=== PATIENT | male | born 1945 | race Caucasian/White ===

== ENCOUNTER → 2018-02-20 07:07 | Outpatient (CLI) | payer OTHER, SELFPAY ==
--- NOTE | 2018-02-20 | DI.MRI.S_ITS ---
PROCEDURE: MR LUMBAR SPINE WO CON INDICATIONS: LUMBOSACRAL REGION RADICULOPATHY TECHNIQUE: Noncontrast sagittal T1 spin echo and T2 fast echo, sagittal STIR, axial T1 and T2 fast spin echo through the lumbar spine. In cases with scoliosis, additional coronal T2 fast spin echo may be performed. COMPARISON: [facility], MR, L-SPINE WITHOUT CONTRAST, 03/29/2016, 8:01. [facility], CT, ABDOMEN/PELVIS WITH CONTRAST, 04/07/2014, 11:18. [facility], RG, US ABDOMEN, 09/28/2003, 7:42. FINDINGS: Image quality: Excellent. Alignment and Curvature: 5 lumbar type vertebral bodies are present by CT topogram. There is mild grade 1 retrolisthesis of L4 on L5 and L5 on S1. Bone Marrow: Marrow is of normal overall signal. No acute vertebral body compression fractures. There is mild reactive signal within the endplates adjacent to the the L3-L4, L4-L5, and L5-S1 intervertebral discs. Spinal Cord: Conus medullaris terminates at the L1-L2 disc space level. Visualized cord demonstrates normal signal and size. Paraspinous Soft Tissues: No paravertebral masses. Mild incompletely visualized aneurysmal dilatation of the infrarenal abdominal aorta, measuring roughly 31 mm. L1-L2: Bilateral facet hypertrophy. No significant canal, nor foraminal stenosis. No change. L2-L3: Disc desiccation and diffuse disc bulge. Bilateral facet hypertrophy. Mild canal stenosis. Mild foraminal stenosis. No change. L3-L4: Disc desiccation. Bilateral facet and ligamentum flavum hypertrophy. Epidural lipomatosis. Mild canal stenosis. Mild foraminal stenosis bilaterally. No change. L4-L5: Disc desiccation and diffuse disc bulge. Bilateral facet hypertrophy. Mild canal stenosis. Mild foraminal stenosis bilaterally. No change. L5-S1: Disc desiccation and diffuse disc bulge with superimposed small broad-based left for lateral protrusion. Bilateral facet hypertrophy. Mild canal stenosis. Mild right foraminal stenosis. Moderate left foraminal stenosis. No change. IMPRESSION: 1. Multilevel degenerative disc and facet disease. 2. No change in mild multilevel canal stenoses. 3. No change in multilevel foraminal stenoses, worst on the left at L5-S1. 4. Mild aneurysmal dilatation of the infrarenal abdominal aorta; annual sonographic surveillance is recommended. Dictated by: Raman Arteaga M.D. on 02/20/2018 at 9:24 Approved by: Raman Arteaga M.D. on 02/20/2018 at 9:30
== END ==
PROVIDERS: Family Provider Family Medicine; PCP Family Medicine; Visit Provider Orthopaedic Surgery
DX: M51.37 Other intervertebral disc degeneration, lumbosacral region (principal); M47.816 Spondylosis without myelopathy or radiculopathy, lumbar region; I71.4 Abdominal aortic aneurysm, without rupture
CPT/HCPCS: 72148

== ENCOUNTER → 2018-04-11 10:04 | Outpatient (CLI) | payer OTHER, SELFPAY ==
[2018-04-11 11:36] LABS: Blood Urea Nitrogen 18 mg/dL (9-20); Calcium 9.1 mg/dL (8.4-10.2); Carbon Dioxide 28 mmol/L (22-32); Chloride 102 mmol/L (98-107); Estimated Glomerular Filt Rate 59.5 mL/min (>60); Glucose 148 mg/dL (80-110); HEMOLYSIS < 15 (0-50); Potassium 4.3 mmol/L (3.4-5.1); Sodium 140 mmol/L (137-145)
== END ==
PROVIDERS: Family Provider Family Medicine; PCP Family Medicine; Visit Provider Internal Medicine Cardiovascular Disease
DX: I25.10 Atherosclerotic heart disease of native coronary artery without angina pectoris (principal)
CPT/HCPCS: 36415; 80048

== ENCOUNTER 2018-05-29 08:15 | Outpatient (RCR) | payer OTHER, SELFPAY ==
--- NOTE | 2018-04-02 16:57 | PT.OIE ---
Current Diagnoses Strain of muscle, fascia and tendon of right hip, initial encounter (04/02/18) Past Surgical History Status post hernia repair Provider Visit Care Team Role Provider Type Mar Jane DO Family Provider Physician Primary Care Provider Specialty: Family Practice Address: [address] [place] [address], [id number] Email: [email or web address] Dickson Ward MD Attending Provider Physician Specialty: Orthopedic Surgery Address: [address] [place] [address], [id number] Email: [email or web address] Physical Therapy Initial Evaluation PT-OP-A Visit Information Start: 04/02/18 10:34 Freq: Status: Active Protocol: Document 04/02/18 10:34 SAK (Rec: 04/02/18 16:57 SAK [id number]) Out-Patient Physical Therapy Visit Information Visit Information Visit Type Initial Evaluation Visit Start Time 10:34 Visit Stop Time 11:19 Total Visit Minutes 45 Visit Number 1 Number of CUSTOMER SECURITY CLERK Visits 0 Evaluation Information Evaluation Date 04/02/18 PT-OP-B Current Condition Start: 04/02/18 10:34 Freq: Status: Active Protocol: Document 04/02/18 10:34 SAK (Rec: 04/02/18 11:19 SAK [id number]) Current Condition History of Current Condition Onset Date 15-20 years Current Complaints function-limiting right buttock pain History of Current Condition Reports no pain sitting but has pain with walking especially uphill. Can't go further than 1/4 mile. Occasional tingling right LE. Progressively getting worse. Scheduled for land-based PT. Walks every day, limps, would like to be able to walk up to 2 miles. Painful on treadmill, though reports a little easier. Not doing HEP consistently. Works out at gym especially in the winter. Prior Treatments and Tests PT chiropracter, PT, pain specialist with injection into lumbar spine and gluteal muscles, accupunture; nothing helpful. C56 fusion 1983. MRI of hip negative. Now has some tingling into right LE. At times feels right leg is going to give way, increased pain with lifting. Treatment Goals Patient/Caregiver Goals Walk 2 miles without pain. Prior Functional Status Baseline Function- ADL's Independent Baseline Function- Mobility Independent Baseline Function- Gait Independent, hiking greater than 2 miles no pain Current Functional Impairments (Reported) Functional Limitations- Mobility/Gait as above PT-OP-C Subjective Start: 04/02/18 10:34 Freq: Status: Active Protocol: Document 04/02/18 10:34 SAK (Rec: 04/02/18 16:57 [facility] [id number]) Patient Questionnaires Lower Extremity Functional Scale LEFS Impairment 20 to 39% Impaired (Score 48- 62) OP-PT Pain Assessment Pain Assessment Grid Paper Pain Assessment Grid Completed Yes Location Left Buttock Intensity 6 Scale Used Numeric (1 - 10) Description Aching Burning Spasm Tender Tightness Frequency Frequent Pain Behaviors Pain Behaviors Guarding Wincing PT-OP-F Manual Assessment Start: 04/02/18 16:29 Freq: Status: Active Protocol: Document 04/02/18 10:34 SAK (Rec: 04/02/18 16:57 [facility] [id number]) Manual Assessments Soft Tissue Assessment Soft Tissue Mobility Assessment Moderate tightness right piriformis Other Manual Assessments Other Manual Assessments with forward trunk flexion right PSIS moves further than left PT-OP-J Posture/Palpation/Skin Start: 04/02/18 16:29 Freq: Status: Active Protocol: Document 04/02/18 10:34 SAK (Rec: 04/02/18 16:57 [facility] [id number]) Posture Evaluation Position Standing Head/C-Spine Posture Forward Head T-Spine Posture Increased Kyphosis L-Spine Posture Flattened Pelvis Posture (R) Rotated Posterior Hip Posture (R) Externally Rotated PT-OP-K Range of Motion Start: 04/02/18 16:29 Freq: Status: Active Protocol: Document 04/02/18 10:34 SAK (Rec: 04/02/18 16:57 [facility] [id number]) Hip Goniometric Range of Motion Hip ROM Limitations Hip ROM Limitations Soft Tissue Tightness Comments PSLR right 50, left 55. IR 30 hever. ER right 40, left 50 Ankle and Foot Goniometric Range of Motion Ankle and Foot ROM Limitations ROM Limitations Soft Tissue Tightness PT-OP-L Special Tests Start: 04/02/18 16:29 Freq: Status: Active Protocol: Document 04/02/18 10:34 SAK (Rec: 04/02/18 16:57 [facility] [id number]) Special Tests Hip Special Tests Piriformis Test Results positive right PT-OP-M Strength Start: 04/02/18 16:29 Freq: Status: Active Protocol: Document 04/02/18 10:34 [facility] (Rec: 04/02/18 16:57 [facility] [id number]) Hip Strength Hip Manual Muscle Testing Right Flexion (L2) 4+ Good+ Extension (S1) 4 Good Abduction 4+ Good+ External Rotation 4- Good- Internal Rotation 4+ Good+ Left Flexion (L2) 4- Good- Extension (S1) 4 Good Abduction 4+ Good+ External Rotation 4- Good- Internal Rotation 4+ Good+ Knee Strength Knee Manual Muscle Testing Right Flexion (S2) 4+ Good+ Extension (L3) 5 Normal Left Flexion (S2) 4+ Good+ Extension (L3) 5 Normal Ankle/Foot Strength Ankle and Foot Manual Muscle Testing Right Dorsiflexion (L4) 5 Normal Left Dorsiflexion (L4) 5 Normal PT-OP-Q Treatments Start: 04/02/18 16:29 Freq: Status: Active Protocol: Document 04/02/18 10:34 [facility] (Rec: 04/02/18 16:57 [facility] [id number]) Self-Care/Home Management Treatment Education Patient Education Home Exercise Program Other Education Hamstring stretching, piriformis stretching, resume prior HEP and bring to next session, self-assessment for habitual postures and movements. PT-OP-T Assessment and Plan Start: 04/02/18 16:29 Freq: Status: Active Protocol: Document 04/02/18 10:34 [facility] (Rec: 04/02/18 16:57 [facility] [id number]) Physical Therapy Assessment Rehab Potential Rehabilitation Potential Good Evaluation Complexity Number of Personal Factors/Comorbidities 1-2 Number of Body Systems Impaired 4 or More Clinical Presentation at Evaluation Evolving Impairments Impairments Activity Tolerance Functional Activities Functional Mobility Gait Pain Posture ROM Strength Goals Four Impairment ROM Short Term Goal (STG) Patient to be independent and compliant with HEP for purposes of LE flexibility STG Duration 6 wks Insulation Inspector Goal (LTG) Patient to demonstrate improvements in piriformis and hamstring length to WNL for improved functional mobility and activity tolerance LTG Duration 3 months Three Impairment Functional mobility Short Term Goal (STG) Improve LE functional questionaire to 70% STG Duration 6 wks Assisted Goal (LTG) Improve LE functional questionaire to at least 80% LTG Duration 3 months Two Impairment strength Short Term Goal (STG) Patient to be independent and compliant with HEP for purposes of LE strengthening and core stabilization STG Duration 6 wks Assisted Goal (LTG) Patient to demonstrate 5/5 strength throughout LE's LTG Duration 3 months One Impairment Functional mobility; unable to walk greaer than 1/4 mile without pain Short Term Goal (STG) Patient able to walk 1 mile on level surfaces without an increase in pain or need for rest. STG Duration 6 wks Insulation Inspector Goal (LTG) Patient able to walk greater than 2 miles including elevation with minimal to no increase in pain LTG Duration 3 months Assessment Summary Assessment Patient presents with function -limiting pain in right buttocks which appears due to soft tissue tightness, decreased ROM, and decreased strength. Needs further/ ongoing assessment regarding any contributory positioning or movements which are contributory. Will further evaluate gait on level surfaces and especially elevation with use of treadmill next session. Feel he will benefit from PT to address all goal areas. Physical Therapy Plan Frequency and Duration Frequency of Treatment 2x/Week Duration of Treatment 3 months Plan of Care Start Date 04/02/18 Plan of Care End Date 06/28/18 Therapeutic Interventions Therapeutic Interventions Aquatic Therapy Gait Training Home Exercise Program Manual Therapy Neuromuscular Re-education Patient/Caregiver Education Self-Care/Home Management Therapeutic Activities Therapeutic Exercises Modalities Cold Pack/Ice Massage Electric Stimulation Hot Packs Ultrasound Next Visit Focus/Plan Next Note Type Treatment Note Next Visit Plan Review HEP, progress as indicated, ther ex including hip strengthening, flexibility , and core stabilization, assess gait on treadmill with elevation, assess hip joint mobility
--- NOTE | 2018-04-02 16:57 | PT.OPPOC ---
Current Diagnoses Strain of muscle, fascia and tendon of right hip, initial encounter (04/02/18) Provider Visit Care Team Role Provider Type Mar Jane DO Family Provider Physician Primary Care Provider Specialty: Family Practice Address: [address] [place] [address], [address] Email: [email or web address] Dickson Ward MD Attending Provider Physician Specialty: Orthopedic Surgery Address: [address] [place] [address], [address] Email: [email or web address] Plan Of Care PT-OP-T Assessment and Plan Start: 04/02/18 16:29 Freq: Status: Active Protocol: Document 04/02/18 10:34 SAK (Rec: 04/02/18 16:57 SAK [id number]) Physical Therapy Assessment Rehab Potential Rehabilitation Potential Good Evaluation Complexity Number of Personal Factors/Comorbidities 1-2 Number of Body Systems Impaired 4 or More Clinical Presentation at Evaluation Evolving Impairments Impairments Activity Tolerance Functional Activities Functional Mobility Gait Pain Posture ROM Strength Goals Four Impairment ROM Short Term Goal (STG) Patient to be independent and compliant with HEP for purposes of LE flexibility STG Duration 6 wks Group Home Goal (LTG) Patient to demonstrate improvements in piriformis and hamstring length to WNL for improved functional mobility and activity tolerance LTG Duration 3 months Three Impairment Functional mobility Short Term Goal (STG) Improve LE functional questionaire to 70% STG Duration 6 wks Group Home Goal (LTG) Improve LE functional questionaire to at least 80% LTG Duration 3 months Two Impairment strength Short Term Goal (STG) Patient to be independent and compliant with HEP for purposes of LE strengthening and core stabilization STG Duration 6 wks Staff Physical Therapy Assistant Goal (LTG) Patient to demonstrate 5/5 strength throughout LE's LTG Duration 3 months One Impairment Functional mobility; unable to walk greaer than 1/4 mile without pain Short Term Goal (STG) Patient able to walk 1 mile on level surfaces without an increase in pain or need for rest. STG Duration 6 wks Group Home Goal (LTG) Patient able to walk greater than 2 miles including elevation with minimal to no increase in pain LTG Duration 3 months Assessment Summary Assessment Patient presents with function -limiting pain in right buttocks which appears due to soft tissue tightness, decreased ROM, and decreased strength. Needs further/ ongoing assessment regarding any contributory positioning or movements which are contributory. Will further evaluate gait on level surfaces and especially elevation with use of treadmill next session. Feel he will benefit from PT to address all goal areas. Physical Therapy Plan Frequency and Duration Frequency of Treatment 2x/Week Duration of Treatment 3 months Plan of Care Start Date 04/02/18 Plan of Care End Date 06/28/18 Therapeutic Interventions Therapeutic Interventions Aquatic Therapy Gait Training Home Exercise Program Manual Therapy Neuromuscular Re-education Patient/Caregiver Education Self-Care/Home Management Therapeutic Activities Therapeutic Exercises Modalities Cold Pack/Ice Massage Electric Stimulation Hot Packs Ultrasound Next Visit Focus/Plan Next Note Type Treatment Note Next Visit Plan Review HEP, progress as indicated, ther ex including hip strengthening, flexibility , and core stabilization, assess gait on treadmill with elevation, assess hip joint mobility Plan of Care Dates Plan of Care Start Date 04/02/18 Plan of Care End Date 06/28/18 Please Sign and Return: I have reviewed this Plan of Care and certify that the skilled therapy services above are required to meet the patient?s needs. Physician Signature Date Printed Name and Credentials Clinical Instructor Signature Printed Name and Credentials
--- NOTE | 2018-04-04 16:44 | PT.OTN ---
Current Diagnoses Strain of muscle, fascia and tendon of right hip, initial encounter (04/04/18) Physical Therapy Treatment Note PT-OP-A Visit Information Start: 04/02/18 10:34 Freq: Status: Active Protocol: Document 04/04/18 10:30 SAK (Rec: 04/04/18 15:14 SAK [id number]) Out-Patient Physical Therapy Visit Information Visit Information Visit Type Treatment Note Visit Start Time 10:30 Visit Stop Time 11:15 Total Visit Minutes 45 Visit Number 2 Number of ASSOCIATE PROFESSOR OF SURGERY Visits 0 Evaluation Information Evaluation Date 04/02/18 PT-OP-B Current Condition Start: 04/02/18 10:34 Freq: Status: Active Protocol: Document 04/04/18 10:30 SAK (Rec: 04/04/18 15:14 SAK [id number]) Current Condition History of Current Condition Onset Date 15-20 years Current Complaints function-limiting right buttock pain History of Current Condition Reports no pain sitting but has pain with walking especially uphill. Can't go further than 1/4 mile. Occasional tingling right LE. Progressively getting worse. Scheduled for land-based PT. Walks every day, limps, would like to be able to walk up to 2 miles. Painful on treadmill, though reports a little easier. Not doing HEP consistently. Works out at gym especially in the winter. Prior Treatments and Tests PT chiropracter, PT, pain specialist with injection into lumbar spine and gluteal muscles, accupunture; nothing helpful. C56 fusion 1983. MRI of hip negative. Now has some tingling into right LE. At times feels right leg is going to give way, increased pain with lifting. Treatment Goals Patient/Caregiver Goals Walk 2 miles without pain. PT-OP-C Subjective Start: 04/02/18 10:34 Freq: Status: Active Protocol: Document 04/04/18 10:30 SAK (Rec: 04/04/18 16:43 SAK [id number]) OP-PT Subjective Patient Comments Patient Comments Apologizes for wearing flip flops today for PT. Was sore after evaluation PT-OP-F Manual Assessment Start: 04/02/18 16:29 Freq: Status: Active Protocol: Document 04/02/18 10:34 SAK (Rec: 04/02/18 16:57 SAK [id number]) Manual Assessments Soft Tissue Assessment Soft Tissue Mobility Assessment Moderate tightness right piriformis Other Manual Assessments Other Manual Assessments with forward trunk flexion right PSIS moves further than left PT-OP-J Posture/Palpation/Skin Start: 04/02/18 16:29 Freq: Status: Active Protocol: Document 04/02/18 10:34 SAK (Rec: 04/02/18 16:57 SAK [id number]) Posture Evaluation Position Standing Head/C-Spine Posture Forward Head T-Spine Posture Increased Kyphosis L-Spine Posture Flattened Pelvis Posture (R) Rotated Posterior Hip Posture (R) Externally Rotated PT-OP-K Range of Motion Start: 04/02/18 16:29 Freq: Status: Active Protocol: Document 04/02/18 10:34 SAK (Rec: 04/02/18 16:57 SAK [id number]) Hip Goniometric Range of Motion Hip ROM Limitations Hip ROM Limitations Soft Tissue Tightness Comments PSLR right 50, left 55. IR 30 hever. ER right 40, left 50 Ankle and Foot Goniometric Range of Motion Ankle and Foot ROM Limitations ROM Limitations Soft Tissue Tightness PT-OP-L Special Tests Start: 04/02/18 16:29 Freq: Status: Active Protocol: Document 04/02/18 10:34 SAK (Rec: 04/02/18 16:57 SAK [id number]) Special Tests Hip Special Tests Piriformis Test Results positive right PT-OP-M Strength Start: 04/02/18 16:29 Freq: Status: Active Protocol: Document 04/02/18 10:34 SAK (Rec: 04/02/18 16:57 SAK [id number]) Hip Strength Hip Manual Muscle Testing Right Flexion (L2) 4+ Good+ Extension (S1) 4 Good Abduction 4+ Good+ External Rotation 4- Good- Internal Rotation 4+ Good+ Left Flexion (L2) 4- Good- Extension (S1) 4 Good Abduction 4+ Good+ External Rotation 4- Good- Internal Rotation 4+ Good+ Knee Strength Knee Manual Muscle Testing Right Flexion (S2) 4+ Good+ Extension (L3) 5 Normal Left Flexion (S2) 4+ Good+ Extension (L3) 5 Normal Ankle/Foot Strength Ankle and Foot Manual Muscle Testing Right Dorsiflexion (L4) 5 Normal Left Dorsiflexion (L4) 5 Normal PT-OP-Q Treatments Start: 04/02/18 16:29 Freq: Status: Active Protocol: Document 04/04/18 10:30 [facility] (Rec: 04/04/18 15:14 SAK [id number]) Cardio Equipment Recumbent Stepper (Sci-Fit) Duration (Minutes) 8 Resistance 1.5 Other emphasis on neutral alignment LE's Gym Equipment Shuttle Balance 1 Details Balance side/side, fwd/bck Reps/Duration 5 min Comments emphasis on postural alignment and core activation Therapeutic Exercises Supine Exercises 5 Supine Exercise Name LTR Reps/Minutes 0 Comments start next session 4 Supine Exercise Name SKTC, DKTC Reps/Minutes 2x 3 Supine Exercise Name bridge; bridge with LE flex Reps/Minutes 10x 2 Supine Exercise Name TA with opp UE/LE lift Reps/Minutes 10x 1 Supine Exercise Name TA with march Reps/Minutes 10x Standing Exercises 3 Standing Exercise Name sidestepping, fwd/bck walk with L1 TB Comments emphasis on core stab 2 Standing Exercise Name HC stretch Equipment Used RANDELL 1 Standing Exercise Name hamstring stretch Reps/Minutes 2x Comments emphasis on hip hinge Other Exercises 3 Other Exercise Name aimee pose 2 Other Exercise Name alt UE/LE lift with core stab Reps/Minutes 10x 1 Other Exercise Name cat/cow Reps/Minutes 10x Self-Care/Home Management Treatment Education Patient Education Home Exercise Program Other Education Reviewed and made corrections with patient's HEP especially related to core stabilization PT-OP-T Assessment and Plan Start: 04/02/18 16:29 Freq: Status: Active Protocol: Document 04/04/18 10:30 [facility] (Rec: 04/04/18 15:14 [facility] [id number]) Physical Therapy Assessment Goals Four Impairment ROM Short Term Goal (STG) Patient to be independent and compliant with HEP for purposes of LE flexibility STG Duration 6 wks Prison Goal (LTG) Patient to demonstrate improvements in piriformis and hamstring length to WNL for improved functional mobility and activity tolerance LTG Duration 3 months Three Impairment Functional mobility Short Term Goal (STG) Improve LE functional questionaire to 70% STG Duration 6 wks Prison Goal (LTG) Improve LE functional questionaire to at least 80% LTG Duration 3 months Two Impairment strength Short Term Goal (STG) Patient to be independent and compliant with HEP for purposes of LE strengthening and core stabilization STG Duration 6 wks Prison Goal (LTG) Patient to demonstrate 5/5 strength throughout LE's LTG Duration 3 months One Impairment Functional mobility; unable to walk greaer than 1/4 mile without pain Short Term Goal (STG) Patient able to walk 1 mile on level surfaces without an increase in pain or need for rest. STG Duration 6 wks Registered Representative Goal (LTG) Patient able to walk greater than 2 miles including elevation with minimal to no increase in pain LTG Duration 3 months Assessment Summary Assessment Patient demonstrated good understanding of exercises after review, instruction, cues, and corrections. Has difficulty with balance/ stabilization standing on shuttle balance. Unable to assess gait on treadmill due to patient wearing flip flops today. Physical Therapy Plan Frequency and Duration Frequency of Treatment 2x/Week Duration of Treatment 3 months Plan of Care Start Date 04/02/18 Plan of Care End Date 06/28/18 Therapeutic Interventions Therapeutic Interventions Aquatic Therapy Gait Training Home Exercise Program Manual Therapy Neuromuscular Re-education Patient/Caregiver Education Self-Care/Home Management Therapeutic Activities Therapeutic Exercises Modalities Cold Pack/Ice Massage Electric Stimulation Hot Packs Ultrasound Next Visit Focus/Plan Next Note Type Treatment Note Next Visit Plan assess gait on treadmill, initiate soft tissue treatment and modalities as indicated. Assess hip mobility.
--- NOTE | 2018-04-16 12:02 | PT.OTN ---
Current Diagnoses Strain of muscle, fascia and tendon of right hip, initial encounter (04/16/18) Physical Therapy Treatment Note PT-OP-A Visit Information Start: 04/02/18 10:34 Freq: Status: Active Protocol: Document 04/16/18 09:43 SAK (Rec: 04/16/18 10:34 SAK [id number]) Out-Patient Physical Therapy Visit Information Visit Information Visit Type Treatment Note Visit Start Time 09:43 Visit Stop Time 10:32 Total Visit Minutes 50 Visit Number 3 Number of MILIEU COORDINATOR Visits 0 PT-OP-B Current Condition Start: 04/02/18 10:34 Freq: Status: Active Protocol: Document 04/04/18 10:30 SAK (Rec: 04/04/18 15:14 SAK [id number]) Current Condition History of Current Condition Onset Date 15-20 years Current Complaints function-limiting right buttock pain History of Current Condition Reports no pain sitting but has pain with walking especially uphill. Can't go further than 1/4 mile. Occasional tingling right LE. Progressively getting worse. Scheduled for land-based PT. Walks every day, limps, would like to be able to walk up to 2 miles. Painful on treadmill, though reports a little easier. Not doing HEP consistently. Works out at gym especially in the winter. Prior Treatments and Tests PT chiropracter, PT, pain specialist with injection into lumbar spine and gluteal muscles, accupunture; nothing helpful. C56 fusion 1983. MRI of hip negative. Now has some tingling into right LE. At times feels right leg is going to give way, increased pain with lifting. Treatment Goals Patient/Caregiver Goals Walk 2 miles without pain. PT-OP-C Subjective Start: 04/02/18 10:34 Freq: Status: Active Protocol: Document 04/16/18 09:43 SAK (Rec: 04/16/18 10:34 SAK [id number]) OP-PT Subjective Patient Comments Patient Comments No change in his pain so far. More compliant to HEP. CT of hip done at [facility] last week per muck farmer, no results yet. Patient Reported Progress Same PT-OP-F Manual Assessment Start: 04/02/18 16:29 Freq: Status: Active Protocol: Document 04/02/18 10:34 SAK (Rec: 04/02/18 16:57 SAK [id number]) Manual Assessments Soft Tissue Assessment Soft Tissue Mobility Assessment Moderate tightness right piriformis Other Manual Assessments Other Manual Assessments with forward trunk flexion right PSIS moves further than left PT-OP-J Posture/Palpation/Skin Start: 04/02/18 16:29 Freq: Status: Active Protocol: Document 04/02/18 10:34 SAK (Rec: 04/02/18 16:57 [facility] [id number]) Posture Evaluation Position Standing Head/C-Spine Posture Forward Head T-Spine Posture Increased Kyphosis L-Spine Posture Flattened Pelvis Posture (R) Rotated Posterior Hip Posture (R) Externally Rotated PT-OP-K Range of Motion Start: 04/02/18 16:29 Freq: Status: Active Protocol: Document 04/02/18 10:34 DANO (Rec: 04/02/18 16:57 [facility] [id number]) Hip Goniometric Range of Motion Hip ROM Limitations Hip ROM Limitations Soft Tissue Tightness Comments PSLR right 50, left 55. IR 30 hever. ER right 40, left 50 Ankle and Foot Goniometric Range of Motion Ankle and Foot ROM Limitations ROM Limitations Soft Tissue Tightness PT-OP-L Special Tests Start: 04/02/18 16:29 Freq: Status: Active Protocol: Document 04/02/18 10:34 DANO (Rec: 04/02/18 16:57 [facility] [id number]) Special Tests Hip Special Tests Piriformis Test Results positive right PT-OP-M Strength Start: 04/02/18 16:29 Freq: Status: Active Protocol: Document 04/02/18 10:34 DANO (Rec: 04/02/18 16:57 [facility] [id number]) Hip Strength Hip Manual Muscle Testing Right Flexion (L2) 4+ Good+ Extension (S1) 4 Good Abduction 4+ Good+ External Rotation 4- Good- Internal Rotation 4+ Good+ Left Flexion (L2) 4- Good- Extension (S1) 4 Good Abduction 4+ Good+ External Rotation 4- Good- Internal Rotation 4+ Good+ Knee Strength Knee Manual Muscle Testing Right Flexion (S2) 4+ Good+ Extension (L3) 5 Normal Left Flexion (S2) 4+ Good+ Extension (L3) 5 Normal Ankle/Foot Strength Ankle and Foot Manual Muscle Testing Right Dorsiflexion (L4) 5 Normal Left Dorsiflexion (L4) 5 Normal PT-OP-Q Treatments Start: 04/02/18 16:29 Freq: Status: Active Protocol: Document 04/16/18 09:43 [facility] (Rec: 04/16/18 12:02 SAK [id number]) Cardio Equipment Treadmill Duration (Minutes) 10 Speed 2.5, 0.6, 0.8 Incline 0-8 Other forward, back, side Therapeutic Exercises Supine Exercises 3 Supine Exercise Name bridge; bridge with LE flex Reps/Minutes 10x Sidelying Exercises 1 Sidelying Exercise Name clam, reverse clam, hip ab all at wall Reps/Minutes 10+ Comments cues for core engagement Standing Exercises 4 Standing Exercise Name BOSU lunge Reps/Minutes 10x Gait Training Gait Activity 1 Description gait with emphasis on gluteal and core activation Surface level and stairs Self-Care/Home Management Treatment Education Patient Education Home Exercise Program Other Education updated written HEP PT-OP-T Assessment and Plan Start: 04/02/18 16:29 Freq: Status: Active Protocol: Document 04/16/18 09:43 [facility] (Rec: 04/16/18 12:02 [facility] [id number]) Physical Therapy Assessment Progress Towards Goals Progress Comments No change in pain, compliant to HEP. Assessment Summary Assessment Appeared to understand importance of core activation with all exercises and gluteal activation with stance phase of gait. Physical Therapy Plan Frequency and Duration Frequency of Treatment 2x/Week Duration of Treatment 3 months Plan of Care Start Date 04/02/18 Plan of Care End Date 06/28/18 Therapeutic Interventions Therapeutic Interventions Aquatic Therapy Gait Training Home Exercise Program Manual Therapy Neuromuscular Re-education Patient/Caregiver Education Self-Care/Home Management Therapeutic Activities Therapeutic Exercises Modalities Cold Pack/Ice Massage Electric Stimulation Hot Packs Ultrasound Next Visit Focus/Plan Next Note Type Treatment Note Next Visit Plan Initiate soft tissue treatment and hip mobility.
--- NOTE | 2018-04-23 11:42 | PT.OTN ---
Current Diagnoses Strain of muscle, fascia and tendon of right hip, initial encounter (04/23/18) Physical Therapy Treatment Note PT-OP-A Visit Information Start: 04/02/18 10:34 Freq: Status: Active Protocol: Document 04/18/18 09:46 SAK (Rec: 04/18/18 17:01 SAK [id number]) Out-Patient Physical Therapy Visit Information Visit Information Visit Type Treatment Note Visit Start Time 09:46 Visit Stop Time 10:46 Total Visit Minutes 60 Visit Number 4 Number of PIPE COVERER AND INSULATOR Visits 0 Evaluation Information Evaluation Date 04/02/18 PT-OP-B Current Condition Start: 04/02/18 10:34 Freq: Status: Active Protocol: Document 04/04/18 10:30 SAK (Rec: 04/04/18 15:14 SAK [id number]) Current Condition History of Current Condition Onset Date 15-20 years Current Complaints function-limiting right buttock pain History of Current Condition Reports no pain sitting but has pain with walking especially uphill. Can't go further than 1/4 mile. Occasional tingling right LE. Progressively getting worse. Scheduled for land-based PT. Walks every day, limps, would like to be able to walk up to 2 miles. Painful on treadmill, though reports a little easier. Not doing HEP consistently. Works out at gym especially in the winter. Prior Treatments and Tests PT chiropracter, PT, pain specialist with injection into lumbar spine and gluteal muscles, accupunture; nothing helpful. C56 fusion 1983. MRI of hip negative. Now has some tingling into right LE. At times feels right leg is going to give way, increased pain with lifting. Treatment Goals Patient/Caregiver Goals Walk 2 miles without pain. PT-OP-C Subjective Start: 04/02/18 10:34 Freq: Status: Active Protocol: Document 04/23/18 09:48 SAK (Rec: 04/23/18 10:30 SAK [id number]) OP-PT Subjective Patient Comments Patient Comments I think its a little better. Compliant to HEP. Patient Reported Progress Improving Patient Questionnaires Lower Extremity Functional Scale LEFS Impairment 20 to 39% Impaired (Score 48- 62) PT-OP-F Manual Assessment Start: 04/02/18 16:29 Freq: Status: Active Protocol: Document 04/02/18 10:34 SAK (Rec: 04/02/18 16:57 [facility] [id number]) Manual Assessments Soft Tissue Assessment Soft Tissue Mobility Assessment Moderate tightness right piriformis Other Manual Assessments Other Manual Assessments with forward trunk flexion right PSIS moves further than left PT-OP-J Posture/Palpation/Skin Start: 04/02/18 16:29 Freq: Status: Active Protocol: Document 04/02/18 10:34 SAK (Rec: 04/02/18 16:57 [facility] [id number]) Posture Evaluation Position Standing Head/C-Spine Posture Forward Head T-Spine Posture Increased Kyphosis L-Spine Posture Flattened Pelvis Posture (R) Rotated Posterior Hip Posture (R) Externally Rotated PT-OP-K Range of Motion Start: 04/02/18 16:29 Freq: Status: Active Protocol: Document 04/02/18 10:34 SAK (Rec: 04/02/18 16:57 [facility] [id number]) Hip Goniometric Range of Motion Hip ROM Limitations Hip ROM Limitations Soft Tissue Tightness Comments PSLR right 50, left 55. IR 30 hever. ER right 40, left 50 Ankle and Foot Goniometric Range of Motion Ankle and Foot ROM Limitations ROM Limitations Soft Tissue Tightness PT-OP-L Special Tests Start: 04/02/18 16:29 Freq: Status: Active Protocol: Document 04/02/18 10:34 DANO (Rec: 04/02/18 16:57 [facility] [id number]) Special Tests Hip Special Tests Piriformis Test Results positive right PT-OP-M Strength Start: 04/02/18 16:29 Freq: Status: Active Protocol: Document 04/02/18 10:34 DANO (Rec: 04/02/18 16:57 [facility] [id number]) Hip Strength Hip Manual Muscle Testing Right Flexion (L2) 4+ Good+ Extension (S1) 4 Good Abduction 4+ Good+ External Rotation 4- Good- Internal Rotation 4+ Good+ Left Flexion (L2) 4- Good- Extension (S1) 4 Good Abduction 4+ Good+ External Rotation 4- Good- Internal Rotation 4+ Good+ Knee Strength Knee Manual Muscle Testing Right Flexion (S2) 4+ Good+ Extension (L3) 5 Normal Left Flexion (S2) 4+ Good+ Extension (L3) 5 Normal Ankle/Foot Strength Ankle and Foot Manual Muscle Testing Right Dorsiflexion (L4) 5 Normal Left Dorsiflexion (L4) 5 Normal PT-OP-Q Treatments Start: 04/02/18 16:29 Freq: Status: Active Protocol: Document 04/23/18 09:48 [facility] (Rec: 04/23/18 10:30 SAK [id number]) Cardio Equipment Recumbent Stepper (Sci-Fit) Duration (Minutes) 5 Resistance 1.5 Other emphasis on neutral LE alignment Gym Equipment Sport Cord 1 Exercise Details forward,back, side Cord/Resistance red Reps/Duration 5 reps ea Therapeutic Exercises Standing Exercises 4 Standing Exercise Name BOSU lunge 2 Standing Exercise Name HC stretch Equipment Used RANDELL Manual Therapy Treatment Soft Tissue Mobilization 1 Body Location right piriformis Mobilization Type Myofascial Release Sustained Pressure Intensity/Depth Moderate Body Position Prone Neuro Re-Education Treatment Balance Activities 1 Details SLS Surface level Comments more difficult on right Self-Care/Home Management Treatment Education Patient Education Home Exercise Program Other Education verbal instruction to add SLS especially on right PT-OP-R Modalities Start: 04/02/18 16:29 Freq: Status: Active Protocol: Document 04/23/18 09:48 [facility] (Rec: 04/23/18 11:42 [facility] [id number]) Hot Pack/Cold Pack Treatment Hot Pack Patient Position Hooklying Treatment Duration (minutes) 15 Ultrasound Therapy Treatment Right Posterior Hip Treatment Duration (minutes) 8 Patient Position Prone Coupling Medium Ultrasound Gel Frequency Setting (mHz) 1 Mode Setting Continuous Duty Cycle 100% Intensity Setting (w/cm2) 1.5 PT-OP-T Assessment and Plan Start: 04/02/18 16:29 Freq: Status: Active Protocol: Document 04/23/18 09:48 [facility] (Rec: 04/23/18 11:42 [facility] [id number]) Physical Therapy Assessment Progress Towards Goals Progress Comments Mod verbal and manual cues for correct exercise performance; alignment and core stabilization Assessment Summary Assessment Ultrasound trial to right piriformis today. More difficulty with balance and stability on right LE vs left. Physical Therapy Plan Frequency and Duration Frequency of Treatment 2x/Week Duration of Treatment 3 months Plan of Care Start Date 04/02/18 Plan of Care End Date 06/28/18 Therapeutic Interventions Therapeutic Interventions Aquatic Therapy Gait Training Home Exercise Program Manual Therapy Neuromuscular Re-education Patient/Caregiver Education Self-Care/Home Management Therapeutic Activities Therapeutic Exercises Modalities Cold Pack/Ice Massage Electric Stimulation Hot Packs Ultrasound Next Visit Focus/Plan Next Note Type Treatment Note Next Visit Plan Assess response to last PT session and progress as indicated.
--- NOTE | 2018-04-28 14:24 | PT.OTN ---
Current Diagnoses Strain of muscle, fascia and tendon of right hip, initial encounter (04/25/18) Physical Therapy Treatment Note PT-OP-A Visit Information Start: 04/02/18 10:34 Freq: Status: Active Protocol: Document 04/25/18 13:00 SAK (Rec: 04/25/18 13:29 SAK [id number]) Out-Patient Physical Therapy Visit Information Visit Information Visit Type Treatment Note Visit Start Time 13:00 Visit Stop Time 14:00 Total Visit Minutes 60 Visit Number 6 Number of PULL THROUGH HOOKER Visits 0 PT-OP-B Current Condition Start: 04/02/18 10:34 Freq: Status: Active Protocol: Document 04/04/18 10:30 SAK (Rec: 04/04/18 15:14 SAK [id number]) Current Condition History of Current Condition Onset Date 15-20 years Current Complaints function-limiting right buttock pain History of Current Condition Reports no pain sitting but has pain with walking especially uphill. Can't go further than 1/4 mile. Occasional tingling right LE. Progressively getting worse. Scheduled for land-based PT. Walks every day, limps, would like to be able to walk up to 2 miles. Painful on treadmill, though reports a little easier. Not doing HEP consistently. Works out at gym especially in the winter. Prior Treatments and Tests PT chiropracter, PT, pain specialist with injection into lumbar spine and gluteal muscles, accupunture; nothing helpful. C56 fusion 1983. MRI of hip negative. Now has some tingling into right LE. At times feels right leg is going to give way, increased pain with lifting. Treatment Goals Patient/Caregiver Goals Walk 2 miles without pain. PT-OP-C Subjective Start: 04/02/18 10:34 Freq: Status: Active Protocol: Document 04/25/18 13:00 SAK (Rec: 04/25/18 13:29 SAK [id number]) OP-PT Subjective Patient Comments Patient Comments No new c/o Patient Reported Progress Improving PT-OP-F Manual Assessment Start: 04/02/18 16:29 Freq: Status: Active Protocol: Document 04/02/18 10:34 SAK (Rec: 04/02/18 16:57 SAK [id number]) Manual Assessments Soft Tissue Assessment Soft Tissue Mobility Assessment Moderate tightness right piriformis Other Manual Assessments Other Manual Assessments with forward trunk flexion right PSIS moves further than left PT-OP-J Posture/Palpation/Skin Start: 04/02/18 16:29 Freq: Status: Active Protocol: Document 04/02/18 10:34 SAK (Rec: 04/02/18 16:57 SAK [id number]) Posture Evaluation Position Standing Head/C-Spine Posture Forward Head T-Spine Posture Increased Kyphosis L-Spine Posture Flattened Pelvis Posture (R) Rotated Posterior Hip Posture (R) Externally Rotated PT-OP-K Range of Motion Start: 04/02/18 16:29 Freq: Status: Active Protocol: Document 04/02/18 10:34 SAK (Rec: 04/02/18 16:57 SAK [id number]) Hip Goniometric Range of Motion Hip ROM Limitations Hip ROM Limitations Soft Tissue Tightness Comments PSLR right 50, left 55. IR 30 hever. ER right 40, left 50 Ankle and Foot Goniometric Range of Motion Ankle and Foot ROM Limitations ROM Limitations Soft Tissue Tightness PT-OP-L Special Tests Start: 04/02/18 16:29 Freq: Status: Active Protocol: Document 04/02/18 10:34 SAK (Rec: 04/02/18 16:57 SAK [id number]) Special Tests Hip Special Tests Piriformis Test Results positive right PT-OP-M Strength Start: 04/02/18 16:29 Freq: Status: Active Protocol: Document 04/02/18 10:34 SAK (Rec: 04/02/18 16:57 SAK [id number]) Hip Strength Hip Manual Muscle Testing Right Flexion (L2) 4+ Good+ Extension (S1) 4 Good Abduction 4+ Good+ External Rotation 4- Good- Internal Rotation 4+ Good+ Left Flexion (L2) 4- Good- Extension (S1) 4 Good Abduction 4+ Good+ External Rotation 4- Good- Internal Rotation 4+ Good+ Knee Strength Knee Manual Muscle Testing Right Flexion (S2) 4+ Good+ Extension (L3) 5 Normal Left Flexion (S2) 4+ Good+ Extension (L3) 5 Normal Ankle/Foot Strength Ankle and Foot Manual Muscle Testing Right Dorsiflexion (L4) 5 Normal Left Dorsiflexion (L4) 5 Normal PT-OP-Q Treatments Start: 04/02/18 16:29 Freq: Status: Active Protocol: Document 04/25/18 13:00 SAK (Rec: 04/25/18 13:29 [facility] [id number]) Cardio Equipment Recumbent Stepper (Sci-Fit) Duration (Minutes) 5 Resistance 2.0 Other emphasis on neutral LE alignment Gym Equipment Shuttle Recovery Unilateral Squats Resistance 75 Shuttle Recovery Platform Unstable Reps/Time 2 x 10 Bilateral Squats Resistance 100 Shuttle Recovery Platform Unstable Reps/Time 2 x 10 Sport Cord 1 Exercise Details forward,back, side Cord/Resistance red Reps/Duration 5 reps ea Comments emphasis on increased SLS time Therapeutic Exercises Standing Exercises 4 Standing Exercise Name BOSU lunge Reps/Minutes 10x 2 Standing Exercise Name HC stretch Equipment Used RANDELL 1 Standing Exercise Name hamstring stretch Reps/Minutes 2x Comments emphasis on hip hinge Neuro Re-Education Treatment Balance Activities 1 Details SLS Surface level Comments more difficult on right PT-OP-R Modalities Start: 04/02/18 16:29 Freq: Status: Active Protocol: Document 04/25/18 13:00 [facility] (Rec: 04/28/18 14:24 [facility] [id number]) Hot Pack/Cold Pack Treatment Hot Pack Location right piriformis, lumbar spine Patient Position Hooklying Treatment Duration (minutes) 15 Patient Tolerance Good Ultrasound Therapy Treatment Right Posterior Hip Treatment Duration (minutes) 8 Patient Position Prone Coupling Medium Ultrasound Gel Frequency Setting (mHz) 1 Mode Setting Continuous Duty Cycle 100% Intensity Setting (w/cm2) 1.5 PT-OP-T Assessment and Plan Start: 04/02/18 16:29 Freq: Status: Active Protocol: Document 04/25/18 13:00 [facility] (Rec: 04/28/18 14:24 [facility] [id number]) Physical Therapy Assessment Progress Towards Goals Progress Comments Decreased cues for proper exercise performance, patient demonstrating improved body awareness with all activities. Assessment Summary Assessment Benefiting from addition of ultrasound and manual treatment. Physical Therapy Plan Frequency and Duration Frequency of Treatment 2x/Week Duration of Treatment 3 months Plan of Care Start Date 04/02/18 Plan of Care End Date 06/28/18 Therapeutic Interventions Therapeutic Interventions Aquatic Therapy Gait Training Home Exercise Program Manual Therapy Neuromuscular Re-education Patient/Caregiver Education Self-Care/Home Management Therapeutic Activities Therapeutic Exercises Modalities Cold Pack/Ice Massage Electric Stimulation Hot Packs Ultrasound Next Visit Focus/Plan Next Note Type Treatment Note Next Visit Plan Progression of ther ex. Assess hip joing mobility and treat as indicated.
--- NOTE | 2018-04-30 17:33 | PT.OTN ---
Current Diagnoses Strain of muscle, fascia and tendon of right hip, initial encounter (04/30/18) Physical Therapy Treatment Note PT-OP-A Visit Information Start: 04/02/18 10:34 Freq: Status: Active Protocol: Document 04/30/18 09:52 [facility] (Rec: 04/30/18 10:28 [facility] [id number]) Out-Patient Physical Therapy Visit Information Visit Information Visit Type Treatment Note Visit Start Time 09:45 Visit Stop Time 10:45 Total Visit Minutes 60 Visit Number 7 PT-OP-B Current Condition Start: 04/02/18 10:34 Freq: Status: Active Protocol: Document 04/04/18 10:30 [facility] (Rec: 04/04/18 15:14 SAK [id number]) Current Condition History of Current Condition Onset Date 15-20 years Current Complaints function-limiting right buttock pain History of Current Condition Reports no pain sitting but has pain with walking especially uphill. Can't go further than 1/4 mile. Occasional tingling right LE. Progressively getting worse. Scheduled for land-based PT. Walks every day, limps, would like to be able to walk up to 2 miles. Painful on treadmill, though reports a little easier. Not doing HEP consistently. Works out at gym especially in the winter. Prior Treatments and Tests PT chiropracter, PT, pain specialist with injection into lumbar spine and gluteal muscles, accupunture; nothing helpful. C56 fusion 1983. MRI of hip negative. Now has some tingling into right LE. At times feels right leg is going to give way, increased pain with lifting. Treatment Goals Patient/Caregiver Goals Walk 2 miles without pain. PT-OP-C Subjective Start: 04/02/18 10:34 Freq: Status: Active Protocol: Document 04/30/18 09:52 [facility]AK (Rec: 04/30/18 10:28 [facility] [id number]) OP-PT Subjective Patient Comments Patient Comments Reports hurts worse after doing exercises especially at night. Numbness in thighs with prolonged walking and dennis ding. PT-OP-F Manual Assessment Start: 04/02/18 16:29 Freq: Status: Active Protocol: Document 04/02/18 10:34 [facility]AK (Rec: 04/02/18 16:57 [facility]AK [id number]) Manual Assessments Soft Tissue Assessment Soft Tissue Mobility Assessment Moderate tightness right piriformis Other Manual Assessments Other Manual Assessments with forward trunk flexion right PSIS moves further than left PT-OP-J Posture/Palpation/Skin Start: 04/02/18 16:29 Freq: Status: Active Protocol: Document 04/02/18 10:34 [facility]AK (Rec: 04/02/18 16:57 [facility]AK [id number]) Posture Evaluation Position Standing Head/C-Spine Posture Forward Head T-Spine Posture Increased Kyphosis L-Spine Posture Flattened Pelvis Posture (R) Rotated Posterior Hip Posture (R) Externally Rotated PT-OP-K Range of Motion Start: 04/02/18 16:29 Freq: Status: Active Protocol: Document 04/02/18 10:34 [facility]AK (Rec: 04/02/18 16:57 [facility]AK [id number]) Hip Goniometric Range of Motion Hip ROM Limitations Hip ROM Limitations Soft Tissue Tightness Comments PSLR right 50, left 55. IR 30 hever. ER right 40, left 50 Ankle and Foot Goniometric Range of Motion Ankle and Foot ROM Limitations ROM Limitations Soft Tissue Tightness PT-OP-L Special Tests Start: 04/02/18 16:29 Freq: Status: Active Protocol: Document 04/02/18 10:34 [facility]AK (Rec: 04/02/18 16:57 [facility] [id number]) Special Tests Hip Special Tests Piriformis Test Results positive right PT-OP-M Strength Start: 04/02/18 16:29 Freq: Status: Active Protocol: Document 04/02/18 10:34 SAK (Rec: 04/02/18 16:57 [facility]AK [id number]) Hip Strength Hip Manual Muscle Testing Right Flexion (L2) 4+ Good+ Extension (S1) 4 Good Abduction 4+ Good+ External Rotation 4- Good- Internal Rotation 4+ Good+ Left Flexion (L2) 4- Good- Extension (S1) 4 Good Abduction 4+ Good+ External Rotation 4- Good- Internal Rotation 4+ Good+ Knee Strength Knee Manual Muscle Testing Right Flexion (S2) 4+ Good+ Extension (L3) 5 Normal Left Flexion (S2) 4+ Good+ Extension (L3) 5 Normal Ankle/Foot Strength Ankle and Foot Manual Muscle Testing Right Dorsiflexion (L4) 5 Normal Left Dorsiflexion (L4) 5 Normal PT-OP-Q Treatments Start: 04/02/18 16:29 Freq: Status: Active Protocol: Document 04/30/18 17:29 [facility]AK (Rec: 04/30/18 17:33 [facility] [id number]) Cardio Equipment Recumbent Stepper (Sci-Fit) Duration (Minutes) 10 Resistance 2.0 Other emphasis on neutral LE alignment PT-OP-R Modalities Start: 04/02/18 16:29 Freq: Status: Active Protocol: Document 04/30/18 17:29 [facility] (Rec: 04/30/18 17:33 [facility] [id number]) Spinal Traction Traction Treatment Lumbar Method Mechanical Intermittent Patient Position Hooklying Force Applied (Pounds) 60 Intermittent Time On (Seconds) 30 Intermittent Time Off (Seconds) 10 Duration of Treatment (Minutes) 15 Heating Pad Applied Yes Traction Treatment Comment reports some soreness after treatment Ultrasound Therapy Treatment Right Posterior Hip Treatment Duration (minutes) 8 Patient Position Prone Coupling Medium Ultrasound Gel Frequency Setting (mHz) 1 Mode Setting Continuous Duty Cycle 100% Intensity Setting (w/cm2) 1.5 Comments bilateral lumbar spine today prior to lumbar traction PT-OP-T Assessment and Plan Start: 04/02/18 16:29 Freq: Status: Active Protocol: Document 04/30/18 17:29 [facility] (Rec: 04/30/18 17:33 [facility] [id number]) Physical Therapy Assessment Goals Four Impairment ROM Short Term Goal (STG) Patient to be independent and compliant with HEP for purposes of LE flexibility STG Duration 6 wks Posting Clerk Goal (LTG) Patient to demonstrate improvements in piriformis and hamstring length to WNL for improved functional mobility and activity tolerance LTG Duration 3 months Three Impairment Functional mobility Short Term Goal (STG) Improve LE functional questionaire to 70% STG Duration 6 wks Posting Clerk Goal (LTG) Improve LE functional questionaire to at least 80% LTG Duration 3 months Two Impairment strength Short Term Goal (STG) Patient to be independent and compliant with HEP for purposes of LE strengthening and core stabilization STG Duration 6 wks Posting Clerk Goal (LTG) Patient to demonstrate 5/5 strength throughout LE's LTG Duration 3 months One Impairment Functional mobility; unable to walk greaer than 1/4 mile without pain Short Term Goal (STG) Patient able to walk 1 mile on level surfaces without an increase in pain or need for rest. STG Duration 6 wks [facility] Goal (LTG) Patient able to walk greater than 2 miles including elevation with minimal to no increase in pain LTG Duration 3 months Progress Towards Goals Progress Towards Goals Slow Progress - Other Progress Comments Trial pelvic traction today due to patient expressing he doesn't really feel any improvement despite prior comments; wishful thinking Assessment Summary Assessment Fair tolerance for mechanical traction. Patient demonstrating improved body awareness with all exercise activities. Not yet willing to try aquatic exercise/ therapy; feel he would benefit highly. Physical Therapy Plan Frequency and Duration Frequency of Treatment 2x/Week Duration of Treatment 3 months Plan of Care Start Date 04/02/18 Plan of Care End Date 06/28/18 Therapeutic Interventions Therapeutic Interventions Aquatic Therapy Gait Training Home Exercise Program Manual Therapy Neuromuscular Re-education Patient/Caregiver Education Self-Care/Home Management Therapeutic Activities Therapeutic Exercises Modalities Cold Pack/Ice Massage Electric Stimulation Hot Packs Ultrasound Next Visit Focus/Plan Next Note Type Treatment Note Next Visit Plan Assess response to today's treatment, progress as indicated.
--- NOTE | 2018-05-02 11:14 | PT.OTN ---
Current Diagnoses Strain of muscle, fascia and tendon of right hip, initial encounter (05/02/18) Physical Therapy Treatment Note PT-OP-A Visit Information Start: 04/02/18 10:34 Freq: Status: Active Protocol: Document 05/02/18 11:07 [facility] (Rec: 05/02/18 11:14 [facility] [id number]) Out-Patient Physical Therapy Visit Information Visit Information Visit Type Treatment Note Visit Start Time 09:45 Visit Stop Time 10:45 Total Visit Minutes 60 Visit Number 8 PT-OP-B Current Condition Start: 04/02/18 10:34 Freq: Status: Active Protocol: Document 04/04/18 10:30 [facility] (Rec: 04/04/18 15:14 [facility]AK [id number]) Current Condition History of Current Condition Onset Date 15-20 years Current Complaints function-limiting right buttock pain History of Current Condition Reports no pain sitting but has pain with walking especially uphill. Can't go further than 1/4 mile. Occasional tingling right LE. Progressively getting worse. Scheduled for land-based PT. Walks every day, limps, would like to be able to walk up to 2 miles. Painful on treadmill, though reports a little easier. Not doing HEP consistently. Works out at gym especially in the winter. Prior Treatments and Tests PT chiropracter, PT, pain specialist with injection into lumbar spine and gluteal muscles, accupunture; nothing helpful. C56 fusion 1983. MRI of hip negative. Now has some tingling into right LE. At times feels right leg is going to give way, increased pain with lifting. Treatment Goals Patient/Caregiver Goals Walk 2 miles without pain. PT-OP-C Subjective Start: 04/02/18 10:34 Freq: Status: Active Protocol: Document 05/02/18 11:07 [facility] (Rec: 05/02/18 11:14 [facility] [id number]) OP-PT Subjective Patient Comments Patient Comments States he thinks the traction may have been helpful, initially very sore, but better today. Agreeable to try again, do ice pack after. PT-OP-F Manual Assessment Start: 04/02/18 16:29 Freq: Status: Active Protocol: Document 04/02/18 10:34 [facility] (Rec: 04/02/18 16:57 [facility] [id number]) Manual Assessments Soft Tissue Assessment Soft Tissue Mobility Assessment Moderate tightness right piriformis Other Manual Assessments Other Manual Assessments with forward trunk flexion right PSIS moves further than left PT-OP-J Posture/Palpation/Skin Start: 04/02/18 16:29 Freq: Status: Active Protocol: Document 04/02/18 10:34 [facility] (Rec: 04/02/18 16:57 [facility] [id number]) Posture Evaluation Position Standing Head/C-Spine Posture Forward Head T-Spine Posture Increased Kyphosis L-Spine Posture Flattened Pelvis Posture (R) Rotated Posterior Hip Posture (R) Externally Rotated PT-OP-K Range of Motion Start: 04/02/18 16:29 Freq: Status: Active Protocol: Document 04/02/18 10:34 [facility] (Rec: 04/02/18 16:57 [facility] [id number]) Hip Goniometric Range of Motion Hip ROM Limitations Hip ROM Limitations Soft Tissue Tightness Comments PSLR right 50, left 55. IR 30 hever. ER right 40, left 50 Ankle and Foot Goniometric Range of Motion Ankle and Foot ROM Limitations ROM Limitations Soft Tissue Tightness PT-OP-L Special Tests Start: 04/02/18 16:29 Freq: Status: Active Protocol: Document 04/02/18 10:34 [facility] (Rec: 04/02/18 16:57 [facility] [id number]) Special Tests Hip Special Tests Piriformis Test Results positive right PT-OP-M Strength Start: 04/02/18 16:29 Freq: Status: Active Protocol: Document 04/02/18 10:34 [facility] (Rec: 04/02/18 16:57 [facility] [id number]) Hip Strength Hip Manual Muscle Testing Right Flexion (L2) 4+ Good+ Extension (S1) 4 Good Abduction 4+ Good+ External Rotation 4- Good- Internal Rotation 4+ Good+ Left Flexion (L2) 4- Good- Extension (S1) 4 Good Abduction 4+ Good+ External Rotation 4- Good- Internal Rotation 4+ Good+ Knee Strength Knee Manual Muscle Testing Right Flexion (S2) 4+ Good+ Extension (L3) 5 Normal Left Flexion (S2) 4+ Good+ Extension (L3) 5 Normal Ankle/Foot Strength Ankle and Foot Manual Muscle Testing Right Dorsiflexion (L4) 5 Normal Left Dorsiflexion (L4) 5 Normal PT-OP-Q Treatments Start: 04/02/18 16:29 Freq: Status: Active Protocol: Document 05/02/18 11:07 [facility] (Rec: 05/02/18 11:14 [facility] [id number]) Cardio Equipment Recumbent Stepper (Sci-Fit) Duration (Minutes) 10 Resistance 2.0 Other emphasis on neutral LE alignment Therapeutic Exercises Sitting Exercises 1 Sitting Exercise Name piriformis stretch Reps/Minutes 2x Standing Exercises 1 Standing Exercise Name hamstring stretch Reps/Minutes 2x Comments emphasis on hip hinge PT-OP-R Modalities Start: 04/02/18 16:29 Freq: Status: Active Protocol: Document 05/02/18 11:07 [facility] (Rec: 05/02/18 11:14 [facility] [id number]) Hot Pack/Cold Pack Treatment Cold Pack Location bilateral l/s Patient Position Hooklying Treatment Duration (minutes) 10 Patient Tolerance Good Comments following mechanical traction Spinal Traction Traction Treatment Lumbar Method Mechanical Intermittent Patient Position Hooklying Force Applied (Pounds) 64 Intermittent Time On (Seconds) 30 Intermittent Time Off (Seconds) 10 Duration of Treatment (Minutes) 15 Heating Pad Applied Yes Ultrasound Therapy Treatment Right Posterior Hip Treatment Duration (minutes) 8 Patient Position Prone Coupling Medium Ultrasound Gel Frequency Setting (mHz) 1 Mode Setting Continuous Duty Cycle 100% Intensity Setting (w/cm2) 1.5 Comments bilateral lumbar spine today prior to lumbar traction PT-OP-T Assessment and Plan Start: 04/02/18 16:29 Freq: Status: Active Protocol: Document 05/02/18 11:07 [facility] (Rec: 05/02/18 11:14 [facility] [id number]) Physical Therapy Assessment Goals Four Impairment ROM Short Term Goal (STG) Patient to be independent and compliant with HEP for purposes of LE flexibility STG Duration 6 wks Pen[facility]iary Goal (LTG) Patient to demonstrate improvements in piriformis and hamstring length to WNL for improved functional mobility and activity tolerance LTG Duration 3 months Three Impairment Functional mobility Short Term Goal (STG) Improve LE functional questionaire to 70% STG Duration 6 wks [place]e [place]inder Goal (LTG) Improve LE functional questionaire to at least 80% LTG Duration 3 months Two Impairment strength Short Term Goal (STG) Patient to be independent and compliant with HEP for purposes of LE strengthening and core stabilization STG Duration 6 wks [facility] Goal (LTG) Patient to demonstrate 5/5 strength throughout LE's LTG Duration 3 months One Impairment Functional mobility; unable to walk greaer than 1/4 mile without pain Short Term Goal (STG) Patient able to walk 1 mile on level surfaces without an increase in pain or need for rest. STG Duration 6 wks Sing[place] Winder Goal (LTG) Patient able to walk greater than 2 miles including elevation with minimal to no increase in pain LTG Duration 3 months Progress Towards Goals Progress Comments Possible benefit from mechanical traction last session; done again today, ice after to prevent immediate post traction soreness Physical Therapy Plan Frequency and Duration Frequency of Treatment 2x/Week Duration of Treatment 3 months Plan of Care Start Date 04/02/18 Plan of Care End Date 06/28/18 Therapeutic Interventions Therapeutic Interventions Aquatic Therapy Gait Training Home Exercise Program Manual Therapy Neuromuscular Re-education Patient/Caregiver Education Self-Care/Home Management Therapeutic Activities Therapeutic Exercises Modalities Cold Pack/Ice Massage Electric Stimulation Hot Packs Ultrasound Next Visit Focus/Plan Next Note Type Treatment Note Next Visit Plan see if ice pack helpful for post-traction soreness. Evaluate response, progress ther ex, manual therapy, modalities as indicated.
--- NOTE | 2018-05-07 11:54 | PT.OTN ---
Current Diagnoses Strain of muscle, fascia and tendon of right hip, initial encounter (05/07/18) Physical Therapy Treatment Note PT-OP-A Visit Information Start: 04/02/18 10:34 Freq: Status: Active Protocol: Document 05/07/18 10:30 [facility] (Rec: 05/07/18 11:54 [facility] [id number]) Out-Patient Physical Therapy Visit Information Visit Information Visit Type Treatment Note Visit Start Time 09:45 Visit Stop Time 10:45 Total Visit Minutes 60 Visit Number 9 Number of RETICLE PRINTER Visits 1 PT-OP-B Current Condition Start: 04/02/18 10:34 Freq: Status: Active Protocol: Document 04/04/18 10:30 [facility] (Rec: 04/04/18 15:14 [facility] [id number]) Current Condition History of Current Condition Onset Date 15-20 years Current Complaints function-limiting right buttock pain History of Current Condition Reports no pain sitting but has pain with walking especially uphill. Can't go further than 1/4 mile. Occasional tingling right LE. Progressively getting worse. Scheduled for land-based PT. Walks every day, limps, would like to be able to walk up to 2 miles. Painful on treadmill, though reports a little easier. Not doing HEP consistently. Works out at gym especially in the winter. Prior Treatments and Tests PT chiropracter, PT, pain specialist with injection into lumbar spine and gluteal muscles, accupunture; nothing helpful. C56 fusion 1983. MRI of hip negative. Now has some tingling into right LE. At times feels right leg is going to give way, increased pain with lifting. Treatment Goals Patient/Caregiver Goals Walk 2 miles without pain. PT-OP-C Subjective Start: 04/02/18 10:34 Freq: Status: Active Protocol: Document 05/07/18 10:30 [facility] (Rec: 05/07/18 11:54 [facility] [id number]) OP-PT Subjective Patient Comments Patient Comments Pt has some soreness after last visit, not sure why. He continues to have increase in pain with walking. PT-OP-F Manual Assessment Start: 04/02/18 16:29 Freq: Status: Active Protocol: Document 04/02/18 10:34 [facility] (Rec: 04/02/18 16:57 [facility]AK [id number]) Manual Assessments Soft Tissue Assessment Soft Tissue Mobility Assessment Moderate tightness right piriformis Other Manual Assessments Other Manual Assessments with forward trunk flexion right PSIS moves further than left PT-OP-J Posture/Palpation/Skin Start: 04/02/18 16:29 Freq: Status: Active Protocol: Document 04/02/18 10:34 [facility] (Rec: 04/02/18 16:57 SAK [id number]) Posture Evaluation Position Standing Head/C-Spine Posture Forward Head T-Spine Posture Increased Kyphosis L-Spine Posture Flattened Pelvis Posture (R) Rotated Posterior Hip Posture (R) Externally Rotated PT-OP-K Range of Motion Start: 04/02/18 16:29 Freq: Status: Active Protocol: Document 04/02/18 10:34 [facility] (Rec: 04/02/18 16:57 [facility]AK [id number]) Hip Goniometric Range of Motion Hip ROM Limitations Hip ROM Limitations Soft Tissue Tightness Comments PSLR right 50, left 55. IR 30 hever. ER right 40, left 50 Ankle and Foot Goniometric Range of Motion Ankle and Foot ROM Limitations ROM Limitations Soft Tissue Tightness PT-OP-L Special Tests Start: 04/02/18 16:29 Freq: Status: Active Protocol: Document 04/02/18 10:34 [facility] (Rec: 04/02/18 16:57 [facility]AK [id number]) Special Tests Hip Special Tests Piriformis Test Results positive right PT-OP-M Strength Start: 04/02/18 16:29 Freq: Status: Active Protocol: Document 04/02/18 10:34 [facility] (Rec: 04/02/18 16:57 [facility]AK [id number]) Hip Strength Hip Manual Muscle Testing Right Flexion (L2) 4+ Good+ Extension (S1) 4 Good Abduction 4+ Good+ External Rotation 4- Good- Internal Rotation 4+ Good+ Left Flexion (L2) 4- Good- Extension (S1) 4 Good Abduction 4+ Good+ External Rotation 4- Good- Internal Rotation 4+ Good+ Knee Strength Knee Manual Muscle Testing Right Flexion (S2) 4+ Good+ Extension (L3) 5 Normal Left Flexion (S2) 4+ Good+ Extension (L3) 5 Normal Ankle/Foot Strength Ankle and Foot Manual Muscle Testing Right Dorsiflexion (L4) 5 Normal Left Dorsiflexion (L4) 5 Normal PT-OP-Q Treatments Start: 04/02/18 16:29 Freq: Status: Active Protocol: Document 05/07/18 10:30 [facility] (Rec: 05/07/18 11:54 [facility] [id number]) Cardio Equipment Recumbent Stepper (Sci-Fit) Duration (Minutes) 10 Resistance 2.0 Other emphasis on neutral LE alignment Therapeutic Exercises Sitting Exercises 1 Sitting Exercise Name piriformis stretch Reps/Minutes 2x Standing Exercises 1 Standing Exercise Name hamstring stretch Reps/Minutes 2x PT-OP-R Modalities Start: 04/02/18 16:29 Freq: Status: Active Protocol: Document 05/07/18 10:30 [facility] (Rec: 05/07/18 11:54 [facility] [email or web address]) Hot Pack/Cold Pack Treatment Cold Pack Location bilateral l/s Patient Position Hooklying Treatment Duration (minutes) 10 Patient Tolerance Good Comments following mechanical traction Spinal Traction Traction Treatment Lumbar Method Mechanical Intermittent Patient Position Hooklying Force Applied (Pounds) 64 Intermittent Time On (Seconds) 30 Intermittent Time Off (Seconds) 10 Duration of Treatment (Minutes) 15 Heating Pad Applied Yes Ultrasound Therapy Treatment Right Posterior Hip Treatment Duration (minutes) 8 Patient Position Prone Coupling Medium Ultrasound Gel Frequency Setting (mHz) 1 Mode Setting Continuous Duty Cycle 100% Intensity Setting (w/cm2) 1.5 Comments bilateral lumbar spine today prior to lumbar traction PT-OP-T Assessment and Plan Start: 04/02/18 16:29 Freq: Status: Active Protocol: Document 05/07/18 10:30 [facility] (Rec: 05/07/18 11:54 [facility] [id number]) Physical Therapy Assessment Assessment Summary Assessment Pt had no c/o pain during treatment. He did feel ice was helpful. Physical Therapy Plan Next Visit Focus/Plan Next Note Type Treatment Note Next Visit Plan Response to traction,progress ther ex, manual therapy, modalities as indicated.
--- NOTE | 2018-05-09 10:30 | PT.OTN ---
Current Diagnoses Strain of muscle, fascia and tendon of right hip, initial encounter (05/09/18) Physical Therapy Treatment Note PT-OP-A Visit Information Start: 04/02/18 10:34 Freq: Status: Active Protocol: Document 05/09/18 10:30 RCC (Rec: 05/09/18 12:00 RCC [id number]) Out-Patient Physical Therapy Visit Information Visit Information Visit Type Treatment Note Visit Start Time 09:45 Visit Stop Time 10:40 Total Visit Minutes 55 Visit Number 10 Number of STEEL HEATER Visits 0 PT-OP-B Current Condition Start: 04/02/18 10:34 Freq: Status: Active Protocol: Document 04/04/18 10:30 SAK (Rec: 04/04/18 15:14 SAK [id number]) Current Condition History of Current Condition Onset Date 15-20 years Current Complaints function-limiting right buttock pain History of Current Condition Reports no pain sitting but has pain with walking especially uphill. Can't go further than 1/4 mile. Occasional tingling right LE. Progressively getting worse. Scheduled for land-based PT. Walks every day, limps, would like to be able to walk up to 2 miles. Painful on treadmill, though reports a little easier. Not doing HEP consistently. Works out at gym especially in the winter. Prior Treatments and Tests PT chiropracter, PT, pain specialist with injection into lumbar spine and gluteal muscles, accupunture; nothing helpful. C56 fusion 1983. MRI of hip negative. Now has some tingling into right LE. At times feels right leg is going to give way, increased pain with lifting. Treatment Goals Patient/Caregiver Goals Walk 2 miles without pain. PT-OP-C Subjective Start: 04/02/18 10:34 Freq: Status: Active Protocol: Document 05/09/18 10:30 RCC (Rec: 05/09/18 12:00 RCC [id number]) OP-PT Subjective Patient Comments Patient Comments pt notes that he is still trying to walk every day but still having the same type of pain in his R hip and RLE, worsening with increased distance of walk. He does feel like ice helps. He is going to d/c his cholesterol medication under supervision of his PCP to see if it helps decrease his symptoms. Patient Questionnaires Lower Extremity Functional Scale LEFS Score 53 (66.25%) LEFS Impairment 20 to 39% Impaired (Score 48- 62) PT-OP-F Manual Assessment Start: 04/02/18 16:29 Freq: Status: Active Protocol: Document 05/09/18 10:30 RCC (Rec: 05/09/18 12:00 RCC [id number]) Manual Assessments Soft Tissue Assessment Soft Tissue Mobility Assessment TTP: R piriformis PT-OP-J Posture/Palpation/Skin Start: 04/02/18 16:29 Freq: Status: Active Protocol: Document 04/02/18 10:34 SAK (Rec: 04/02/18 16:57 SAK [id number]) Posture Evaluation Position Standing Head/C-Spine Posture Forward Head T-Spine Posture Increased Kyphosis L-Spine Posture Flattened Pelvis Posture (R) Rotated Posterior Hip Posture (R) Externally Rotated PT-OP-K Range of Motion Start: 04/02/18 16:29 Freq: Status: Active Protocol: Document 04/02/18 10:34 SAK (Rec: 04/02/18 16:57 SAK [id number]) Hip Goniometric Range of Motion Hip ROM Limitations Hip ROM Limitations Soft Tissue Tightness Comments PSLR right 50, left 55. IR 30 hever. ER right 40, left 50 Ankle and Foot Goniometric Range of Motion Ankle and Foot ROM Limitations ROM Limitations Soft Tissue Tightness PT-OP-L Special Tests Start: 04/02/18 16:29 Freq: Status: Active Protocol: Document 04/02/18 10:34 SAK (Rec: 04/02/18 16:57 SAK [id number]) Special Tests Hip Special Tests Piriformis Test Results positive right PT-OP-M Strength Start: 04/02/18 16:29 Freq: Status: Active Protocol: Document 04/02/18 10:34 SAK (Rec: 04/02/18 16:57 SAK [id number]) Hip Strength Hip Manual Muscle Testing Right Flexion (L2) 4+ Good+ Extension (S1) 4 Good Abduction 4+ Good+ External Rotation 4- Good- Internal Rotation 4+ Good+ Left Flexion (L2) 4- Good- Extension (S1) 4 Good Abduction 4+ Good+ External Rotation 4- Good- Internal Rotation 4+ Good+ Knee Strength Knee Manual Muscle Testing Right Flexion (S2) 4+ Good+ Extension (L3) 5 Normal Left Flexion (S2) 4+ Good+ Extension (L3) 5 Normal Ankle/Foot Strength Ankle and Foot Manual Muscle Testing Right Dorsiflexion (L4) 5 Normal Left Dorsiflexion (L4) 5 Normal PT-OP-Q Treatments Start: 04/02/18 16:29 Freq: Status: Active Protocol: Document 05/09/18 10:30 RCC (Rec: 05/09/18 12:00 [facility] [id number]) Cardio Equipment Recumbent Stepper (Sci-Fit) Duration (Minutes) 10 Resistance 2.0 Other emphasis on neutral LE alignment Therapeutic Exercises Supine Exercises 8 Supine Exercise Name posterior pelvic tilt Side bilateral Reps/Minutes 10 reps 7 Supine Exercise Name piriformis stretch Side bilateral Standing Exercises 2 Standing Exercise Name HC stretch Equipment Used RANDELL 1 Standing Exercise Name hamstring stretch Reps/Minutes 2x Manual Therapy Treatment Soft Tissue Mobilization 1 Body Location right piriformis Mobilization Type Myofascial Release Sustained Pressure Intensity/Depth Moderate Body Position Sidelying Comments static and STR w/ movement ( aide assist with hip flexion > 80 deg then ER R hip while holding tension on piriformis) Nerve Glides 1 Nerve sciatic nerve glides Body Position Sidelying Reps/Duration 10 on the R Comments full tension with alt ankle DF /PF PT-OP-R Modalities Start: 04/02/18 16:29 Freq: Status: Active Protocol: Document 05/09/18 10:30 RCC (Rec: 05/09/18 12:00 [facility] [id number]) Hot Pack/Cold Pack Treatment Cold Pack Location R hip, B l/s Patient Position Hooklying Treatment Duration (minutes) 10 Patient Tolerance Good Comments strap for compression R hip PT-OP-T Assessment and Plan Start: 04/02/18 16:29 Freq: Status: Active Protocol: Document 05/09/18 10:30 RCC (Rec: 05/09/18 12:00 [facility] [id number]) Physical Therapy Assessment Assessment Summary Assessment Pt with increased flexibility of the piriformis muscle on the R after manual treatment, less antalgic gait post- treatment as well. Pt's LEFS score improved from 49 to 53 over the course of 10 visits, which indicates slight improvements with function. Physical Therapy Plan Frequency and Duration Frequency of Treatment 2x/Week Duration of Treatment 3 months Plan of Care Start Date 04/02/18 Plan of Care End Date 06/28/18 Next Visit Focus/Plan Next Note Type Treatment Note Next Visit Plan discuss response to manual direct treatment to piriformis vs. previous sessions with traction.
--- NOTE | 2018-05-14 12:58 | PT.OTN ---
Current Diagnoses Strain of muscle, fascia and tendon of right hip, initial encounter (05/14/18) Physical Therapy Treatment Note PT-OP-A Visit Information Start: 04/02/18 10:34 Freq: Status: Active Protocol: Document 05/14/18 09:45 SAK (Rec: 05/14/18 10:30 SAK [id number]) Out-Patient Physical Therapy Visit Information Visit Information Visit Type Treatment Note Visit Start Time 09:45 Visit Stop Time 10:40 Total Visit Minutes 55 Visit Number 11 Number of EARTH MOVING MACHINE OPERATOR Visits 0 PT-OP-B Current Condition Start: 04/02/18 10:34 Freq: Status: Active Protocol: Document 04/04/18 10:30 SAK (Rec: 04/04/18 15:14 SAK [id number]) Current Condition History of Current Condition Onset Date 15-20 years Current Complaints function-limiting right buttock pain History of Current Condition Reports no pain sitting but has pain with walking especially uphill. Can't go further than 1/4 mile. Occasional tingling right LE. Progressively getting worse. Scheduled for land-based PT. Walks every day, limps, would like to be able to walk up to 2 miles. Painful on treadmill, though reports a little easier. Not doing HEP consistently. Works out at gym especially in the winter. Prior Treatments and Tests PT chiropracter, PT, pain specialist with injection into lumbar spine and gluteal muscles, accupunture; nothing helpful. C56 fusion 1983. MRI of hip negative. Now has some tingling into right LE. At times feels right leg is going to give way, increased pain with lifting. Treatment Goals Patient/Caregiver Goals Walk 2 miles without pain. PT-OP-C Subjective Start: 04/02/18 10:34 Freq: Status: Active Protocol: Document 05/14/18 09:45 SAK (Rec: 05/14/18 10:30 SAK [id number]) OP-PT Subjective Patient Comments Patient Comments Reports maybe a little less pain since last session, still comes on with walking especially elevation. PT-OP-F Manual Assessment Start: 04/02/18 16:29 Freq: Status: Active Protocol: Document 05/09/18 10:30 RCC (Rec: 05/09/18 12:00 RCC [email or web address]) Manual Assessments Soft Tissue Assessment Soft Tissue Mobility Assessment TTP: R piriformis PT-OP-J Posture/Palpation/Skin Start: 04/02/18 16:29 Freq: Status: Active Protocol: Document 04/02/18 10:34 SAK (Rec: 04/02/18 16:57 [facility] [id number]) Posture Evaluation Position Standing Head/C-Spine Posture Forward Head T-Spine Posture Increased Kyphosis L-Spine Posture Flattened Pelvis Posture (R) Rotated Posterior Hip Posture (R) Externally Rotated PT-OP-K Range of Motion Start: 04/02/18 16:29 Freq: Status: Active Protocol: Document 04/02/18 10:34 SAK (Rec: 04/02/18 16:57 [facility] [id number]) Hip Goniometric Range of Motion Hip ROM Limitations Hip ROM Limitations Soft Tissue Tightness Comments PSLR right 50, left 55. IR 30 hever. ER right 40, left 50 Ankle and Foot Goniometric Range of Motion Ankle and Foot ROM Limitations ROM Limitations Soft Tissue Tightness PT-OP-L Special Tests Start: 04/02/18 16:29 Freq: Status: Active Protocol: Document 04/02/18 10:34 SAK (Rec: 04/02/18 16:57 [facility] [id number]) Special Tests Hip Special Tests Piriformis Test Results positive right PT-OP-M Strength Start: 04/02/18 16:29 Freq: Status: Active Protocol: Document 04/02/18 10:34 SAK (Rec: 04/02/18 16:57 [facility] [id number]) Hip Strength Hip Manual Muscle Testing Right Flexion (L2) 4+ Good+ Extension (S1) 4 Good Abduction 4+ Good+ External Rotation 4- Good- Internal Rotation 4+ Good+ Left Flexion (L2) 4- Good- Extension (S1) 4 Good Abduction 4+ Good+ External Rotation 4- Good- Internal Rotation 4+ Good+ Knee Strength Knee Manual Muscle Testing Right Flexion (S2) 4+ Good+ Extension (L3) 5 Normal Left Flexion (S2) 4+ Good+ Extension (L3) 5 Normal Ankle/Foot Strength Ankle and Foot Manual Muscle Testing Right Dorsiflexion (L4) 5 Normal Left Dorsiflexion (L4) 5 Normal PT-OP-Q Treatments Start: 04/02/18 16:29 Freq: Status: Active Protocol: Document 05/14/18 09:45 SAK (Rec: 05/14/18 10:30 SAK [id number]) Cardio Equipment Recumbent Stepper (Sci-Fit) Duration (Minutes) 10 Resistance 2.0 Other emphasis on neutral LE alignment Therapeutic Exercises Supine Exercises 7 Supine Exercise Name piriformis stretch Side bilateral Comments including contract/relax Sitting Exercises 1 Sitting Exercise Name piriformis stretch Reps/Minutes 2x Standing Exercises 2 Standing Exercise Name HC stretch Equipment Used RANDELL 1 Standing Exercise Name hamstring stretch Reps/Minutes 2x Manual Therapy Treatment Soft Tissue Mobilization 2 Body Location right piriformis Mobilization Type Instrument Assisted Comments Instructed in use of tennis ball; sitting and supine 1 Body Location right piriformis Mobilization Type Myofascial Release Sustained Pressure Intensity/Depth Moderate Body Position Sidelying Comments with hip ER AROM by patient Joint Mobilizations 1 Joint right hip Direction distraction, inferior glide Grade II Body Position Hooklying Comments with hip flex, using strap Nerve Glides 1 Nerve sciatic nerve glides Body Position Sidelying Reps/Duration 10 on the R Comments full tension with alt ankle DF /PF PT-OP-R Modalities Start: 04/02/18 16:29 Freq: Status: Active Protocol: Document 05/14/18 10:30 [facility] (Rec: 05/14/18 12:58 [facility] [id number]) Hot Pack/Cold Pack Treatment Hot Pack Location right piriformis, lumbar spine Patient Position Hooklying Treatment Duration (minutes) 15 Patient Tolerance Good PT-OP-T Assessment and Plan Start: 04/02/18 16:29 Freq: Status: Active Protocol: Document 05/14/18 10:30 [facility] (Rec: 05/14/18 12:58 [facility] [id number]) Physical Therapy Assessment Assessment Summary Assessment Patient instructed in use of tennis ball for deep pressure to piriformis and demonstrated good understanding; to work on at home. Also instructed in contract/relax for stretching as done today. Physical Therapy Plan Frequency and Duration Frequency of Treatment 2x/Week Duration of Treatment 3 months Plan of Care Start Date 04/02/18 Plan of Care End Date 06/28/18 Next Visit Focus/Plan Next Note Type Treatment Note Next Visit Plan assess response to today's treatment and progress as indicated.
--- NOTE | 2018-05-16 12:53 | PT.OTN ---
Current Diagnoses Strain of muscle, fascia and tendon of right hip, initial encounter (05/16/18) Physical Therapy Treatment Note PT-OP-A Visit Information Start: 04/02/18 10:34 Freq: Status: Active Protocol: Document 05/16/18 09:44 SAK (Rec: 05/16/18 12:53 SAK [id number]) Out-Patient Physical Therapy Visit Information Visit Information Visit Type Treatment Note Visit Start Time 09:45 Visit Stop Time 10:40 Total Visit Minutes 55 Visit Number 12 Number of TILE LAYER Visits 0 Evaluation Information Evaluation Date 04/02/18 PT-OP-B Current Condition Start: 04/02/18 10:34 Freq: Status: Active Protocol: Document 04/04/18 10:30 SAK (Rec: 04/04/18 15:14 SAK [id number]) Current Condition History of Current Condition Onset Date 15-20 years Current Complaints function-limiting right buttock pain History of Current Condition Reports no pain sitting but has pain with walking especially uphill. Can't go further than 1/4 mile. Occasional tingling right LE. Progressively getting worse. Scheduled for land-based PT. Walks every day, limps, would like to be able to walk up to 2 miles. Painful on treadmill, though reports a little easier. Not doing HEP consistently. Works out at gym especially in the winter. Prior Treatments and Tests PT chiropracter, PT, pain specialist with injection into lumbar spine and gluteal muscles, accupunture; nothing helpful. C56 fusion 1983. MRI of hip negative. Now has some tingling into right LE. At times feels right leg is going to give way, increased pain with lifting. Treatment Goals Patient/Caregiver Goals Walk 2 miles without pain. PT-OP-C Subjective Start: 04/02/18 10:34 Freq: Status: Active Protocol: Document 05/16/18 09:44 SAK (Rec: 05/16/18 10:18 SAK [id number]) OP-PT Subjective Patient Comments Patient Comments Soreness bilateral hips, didn' t walk past couple days due to smoke PT-OP-F Manual Assessment Start: 04/02/18 16:29 Freq: Status: Active Protocol: Document 05/09/18 10:30 RCC (Rec: 05/09/18 12:00 RCC [email or web address]) Manual Assessments Soft Tissue Assessment Soft Tissue Mobility Assessment TTP: R piriformis PT-OP-J Posture/Palpation/Skin Start: 04/02/18 16:29 Freq: Status: Active Protocol: Document 04/02/18 10:34 SAK (Rec: 04/02/18 16:57 SAK [id number]) Posture Evaluation Position Standing Head/C-Spine Posture Forward Head T-Spine Posture Increased Kyphosis L-Spine Posture Flattened Pelvis Posture (R) Rotated Posterior Hip Posture (R) Externally Rotated PT-OP-K Range of Motion Start: 04/02/18 16:29 Freq: Status: Active Protocol: Document 04/02/18 10:34 SAK (Rec: 04/02/18 16:57 SAK [id number]) Hip Goniometric Range of Motion Hip ROM Limitations Hip ROM Limitations Soft Tissue Tightness Comments PSLR right 50, left 55. IR 30 hever. ER right 40, left 50 Ankle and Foot Goniometric Range of Motion Ankle and Foot ROM Limitations ROM Limitations Soft Tissue Tightness PT-OP-L Special Tests Start: 04/02/18 16:29 Freq: Status: Active Protocol: Document 04/02/18 10:34 SAK (Rec: 04/02/18 16:57 SAK [id number]) Special Tests Hip Special Tests Piriformis Test Results positive right PT-OP-M Strength Start: 04/02/18 16:29 Freq: Status: Active Protocol: Document 04/02/18 10:34 SAK (Rec: 04/02/18 16:57 SAK [id number]) Hip Strength Hip Manual Muscle Testing Right Flexion (L2) 4+ Good+ Extension (S1) 4 Good Abduction 4+ Good+ External Rotation 4- Good- Internal Rotation 4+ Good+ Left Flexion (L2) 4- Good- Extension (S1) 4 Good Abduction 4+ Good+ External Rotation 4- Good- Internal Rotation 4+ Good+ Knee Strength Knee Manual Muscle Testing Right Flexion (S2) 4+ Good+ Extension (L3) 5 Normal Left Flexion (S2) 4+ Good+ Extension (L3) 5 Normal Ankle/Foot Strength Ankle and Foot Manual Muscle Testing Right Dorsiflexion (L4) 5 Normal Left Dorsiflexion (L4) 5 Normal PT-OP-Q Treatments Start: 04/02/18 16:29 Freq: Status: Active Protocol: Document 05/16/18 09:44 SAK (Rec: 05/16/18 10:18 SAK [id number]) Cardio Equipment Recumbent Stepper (Sci-Fit) Duration (Minutes) 10 Resistance 2.0 Other emphasis on neutral LE alignment Therapeutic Exercises Supine Exercises 7 Supine Exercise Name piriformis stretch Side bilateral Comments including contract/relax Sitting Exercises 1 Sitting Exercise Name piriformis stretch Reps/Minutes 2x Standing Exercises 6 Standing Exercise Name monster walks sideways, fwd/ bck Equipment Used L2 TB 2 Standing Exercise Name HC stretch Equipment Used RANDELL 1 Standing Exercise Name hamstring stretch Reps/Minutes 2x Manual Therapy Treatment Soft Tissue Mobilization 2 Body Location right piriformis Mobilization Type Instrument Assisted Comments Reviewed benefits of using tennis ball at home 1 Body Location right piriformis Mobilization Type Myofascial Release Sustained Pressure Intensity/Depth Moderate Body Position Sidelying Comments with hip ER AROM by patient Self-Care/Home Management Treatment Education Other Education use of skeleton, online pictures to discuss piriformis muscle PT-OP-R Modalities Start: 04/02/18 16:29 Freq: Status: Active Protocol: Document 05/16/18 09:44 [facility] (Rec: 05/16/18 12:51 [facility] [id number]) Hot Pack/Cold Pack Treatment Hot Pack Location right piriformis, lumbar spine Patient Position Hooklying Treatment Duration (minutes) 15 Patient Tolerance Good PT-OP-T Assessment and Plan Start: 04/02/18 16:29 Freq: Status: Active Protocol: Document 05/16/18 09:44 [facility] (Rec: 05/16/18 12:51 [facility] [id number]) Physical Therapy Assessment Goals Four Impairment ROM Short Term Goal (STG) Patient to be independent and compliant with HEP for purposes of LE flexibility STG Duration 6 wks Custodial Goal (LTG) Patient to demonstrate improvements in piriformis and hamstring length to WNL for improved functional mobility and activity tolerance LTG Duration 3 months Three Impairment Functional mobility Short Term Goal (STG) Improve LE functional questionaire to 70% STG Duration 6 wks Lithographer Helper Goal (LTG) Improve LE functional questionaire to at least 80% LTG Duration 3 months Two Impairment strength Short Term Goal (STG) Patient to be independent and compliant with HEP for purposes of LE strengthening and core stabilization STG Duration 6 wks Custodial Goal (LTG) Patient to demonstrate 5/5 strength throughout LE's LTG Duration 3 months One Impairment Functional mobility; unable to walk greaer than 1/4 mile without pain Short Term Goal (STG) Patient able to walk 1 mile on level surfaces without an increase in pain or need for rest. STG Duration 6 wks Custodial Goal (LTG) Patient able to walk greater than 2 miles including elevation with minimal to no increase in pain LTG Duration 3 months Physical Therapy Plan Frequency and Duration Frequency of Treatment 2x/Week Duration of Treatment 3 months Plan of Care Start Date 04/02/18 Plan of Care End Date 06/28/18 Therapeutic Interventions Therapeutic Interventions Aquatic Therapy Gait Training Home Exercise Program Manual Therapy Neuromuscular Re-education Patient/Caregiver Education Self-Care/Home Management Therapeutic Activities Therapeutic Exercises Modalities Cold Pack/Ice Massage Electric Stimulation Hot Packs Ultrasound Next Visit Focus/Plan Next Note Type Treatment Note Next Visit Plan assess response to today's treatment and progress as indicated. Possible return to use of ice if better tolerated.
--- NOTE | 2018-05-21 09:57 | PT.OTN ---
Current Diagnoses Strain of muscle, fascia and tendon of right hip, initial encounter (05/21/18) Physical Therapy Treatment Note PT-OP-A Visit Information Start: 04/02/18 10:34 Freq: Status: Active Protocol: Document 05/21/18 08:12 SAK (Rec: 05/21/18 08:37 SAK [id number]) Out-Patient Physical Therapy Visit Information Visit Information Visit Type Treatment Note Visit Start Time 08:15 Visit Stop Time 09:15 Total Visit Minutes 60 Visit Number 13 Number of FEED PROJECT ENGINEER Visits 0 PT-OP-B Current Condition Start: 04/02/18 10:34 Freq: Status: Active Protocol: Document 04/04/18 10:30 SAK (Rec: 04/04/18 15:14 SAK [id number]) Current Condition History of Current Condition Onset Date 15-20 years Current Complaints function-limiting right buttock pain History of Current Condition Reports no pain sitting but has pain with walking especially uphill. Can't go further than 1/4 mile. Occasional tingling right LE. Progressively getting worse. Scheduled for land-based PT. Walks every day, limps, would like to be able to walk up to 2 miles. Painful on treadmill, though reports a little easier. Not doing HEP consistently. Works out at gym especially in the winter. Prior Treatments and Tests PT chiropracter, PT, pain specialist with injection into lumbar spine and gluteal muscles, accupunture; nothing helpful. C56 fusion 1983. MRI of hip negative. Now has some tingling into right LE. At times feels right leg is going to give way, increased pain with lifting. Treatment Goals Patient/Caregiver Goals Walk 2 miles without pain. PT-OP-C Subjective Start: 04/02/18 10:34 Freq: Status: Active Protocol: Document 05/21/18 08:12 SAK (Rec: 05/21/18 09:57 [facility] [id number]) OP-PT Subjective Patient Comments Patient Comments Reports good compliance to HEP since last seen. Patient Reported Progress Same PT-OP-F Manual Assessment Start: 04/02/18 16:29 Freq: Status: Active Protocol: Document 05/09/18 10:30 RCC (Rec: 05/09/18 12:00 RCC [id number]) Manual Assessments Soft Tissue Assessment Soft Tissue Mobility Assessment TTP: R piriformis PT-OP-J Posture/Palpation/Skin Start: 04/02/18 16:29 Freq: Status: Active Protocol: Document 04/02/18 10:34 SAK (Rec: 04/02/18 16:57 SAK [id number]) Posture Evaluation Position Standing Head/C-Spine Posture Forward Head T-Spine Posture Increased Kyphosis L-Spine Posture Flattened Pelvis Posture (R) Rotated Posterior Hip Posture (R) Externally Rotated PT-OP-K Range of Motion Start: 04/02/18 16:29 Freq: Status: Active Protocol: Document 04/02/18 10:34 SAK (Rec: 04/02/18 16:57 [facility] [id number]) Hip Goniometric Range of Motion Hip ROM Limitations Hip ROM Limitations Soft Tissue Tightness Comments PSLR right 50, left 55. IR 30 hever. ER right 40, left 50 Ankle and Foot Goniometric Range of Motion Ankle and Foot ROM Limitations ROM Limitations Soft Tissue Tightness PT-OP-L Special Tests Start: 04/02/18 16:29 Freq: Status: Active Protocol: Document 04/02/18 10:34 SAK (Rec: 04/02/18 16:57 [facility] [id number]) Special Tests Hip Special Tests Piriformis Test Results positive right PT-OP-M Strength Start: 04/02/18 16:29 Freq: Status: Active Protocol: Document 04/02/18 10:34 SAK (Rec: 04/02/18 16:57 [facility] [id number]) Hip Strength Hip Manual Muscle Testing Right Flexion (L2) 4+ Good+ Extension (S1) 4 Good Abduction 4+ Good+ External Rotation 4- Good- Internal Rotation 4+ Good+ Left Flexion (L2) 4- Good- Extension (S1) 4 Good Abduction 4+ Good+ External Rotation 4- Good- Internal Rotation 4+ Good+ Knee Strength Knee Manual Muscle Testing Right Flexion (S2) 4+ Good+ Extension (L3) 5 Normal Left Flexion (S2) 4+ Good+ Extension (L3) 5 Normal Ankle/Foot Strength Ankle and Foot Manual Muscle Testing Right Dorsiflexion (L4) 5 Normal Left Dorsiflexion (L4) 5 Normal PT-OP-Q Treatments Start: 04/02/18 16:29 Freq: Status: Active Protocol: Document 05/21/18 08:12 SAK (Rec: 05/21/18 08:37 SAK [id number]) Cardio Equipment Elliptical Duration (Minutes) 5 Resistance 4 Recumbent Stepper (Sci-Fit) Duration (Minutes) 5 Resistance 2.5 Other emphasis on neutral LE alignment Therapeutic Exercises Supine Exercises 9 Supine Exercise Name full body lateral trunk flex stretch Reps/Minutes 2x Standing Exercises 7 Standing Exercise Name HS and LB stretch at counter 2 Standing Exercise Name HC stretch Equipment Used RANDELL Comments Neutral, IR 1 Standing Exercise Name hamstring stretch Reps/Minutes 2x Comments neutral, IR Manual Therapy Treatment Soft Tissue Mobilization 2 Body Location right piriformis Mobilization Type Instrument Assisted 1 Body Location right piriformis Mobilization Type Myofascial Release Sustained Pressure Intensity/Depth Moderate Body Position Prone Comments with hip IR/ER AROM by PT PT-OP-R Modalities Start: 04/02/18 16:29 Freq: Status: Active Protocol: Document 05/21/18 08:12 [facility] (Rec: 05/21/18 08:37 [facility] [id number]) Hot Pack/Cold Pack Treatment Hot Pack Location right piriformis, lumbar spine Patient Position Hooklying Treatment Duration (minutes) 15 Patient Tolerance Good Ultrasound Therapy Treatment Right Posterior Hip Treatment Duration (minutes) 8 Patient Position Prone Coupling Medium Ultrasound Gel Frequency Setting (mHz) 1 Mode Setting Continuous Duty Cycle 100% Intensity Setting (w/cm2) 1.5 Comments bilateral lumbar spine today prior to lumbar traction PT-OP-T Assessment and Plan Start: 04/02/18 16:29 Freq: Status: Active Protocol: Document 05/21/18 08:12 [facility] (Rec: 05/21/18 09:57 [facility] [id number]) Physical Therapy Assessment Goals Four Impairment ROM Short Term Goal (STG) Patient to be independent and compliant with HEP for purposes of LE flexibility STG Duration 6 wks Correction Goal (LTG) Patient to demonstrate improvements in piriformis and hamstring length to WNL for improved functional mobility and activity tolerance LTG Duration 3 months Three Impairment Functional mobility Short Term Goal (STG) Improve LE functional questionaire to 70% STG Duration 6 wks Ed Transporter Goal (LTG) Improve LE functional questionaire to at least 80% LTG Duration 3 months Two Impairment strength Short Term Goal (STG) Patient to be independent and compliant with HEP for purposes of LE strengthening and core stabilization STG Duration 6 wks Correction Goal (LTG) Patient to demonstrate 5/5 strength throughout LE's LTG Duration 3 months One Impairment Functional mobility; unable to walk greaer than 1/4 mile without pain Short Term Goal (STG) Patient able to walk 1 mile on level surfaces without an increase in pain or need for rest. STG Duration 6 wks Ed Transporter Goal (LTG) Patient able to walk greater than 2 miles including elevation with minimal to no increase in pain LTG Duration 3 months Assessment Summary Assessment Reported he felt the deep tissue work today felt really good; got to the spot. Physical Therapy Plan Next Visit Focus/Plan Next Note Type Treatment Note Next Visit Plan 1 further PT session planned, then [place] going [place] for [place] fall and winter. Will assess response to today's session, assure indep with HEP , emphasis on deep tissue work . D/C after next session
--- NOTE | 2018-05-29 09:17 | PT.OTN ---
Current Diagnoses Strain of muscle, fascia and tendon of right hip, initial encounter (05/29/18) Physical Therapy Treatment Note PT-OP-A Visit Information Start: 04/02/18 10:34 Freq: Status: Active Protocol: Document 05/29/18 08:13 SAK (Rec: 05/29/18 09:17 SAK [id number]) Out-Patient Physical Therapy Visit Information Visit Information Visit Type Treatment Note Visit Start Time 08:15 Visit Stop Time 09:13 Total Visit Minutes 55 Visit Number 14 Number of NEUROLOGY NURSE Visits 0 Evaluation Information Evaluation Date 04/02/18 PT-OP-B Current Condition Start: 04/02/18 10:34 Freq: Status: Active Protocol: Document 04/04/18 10:30 SAK (Rec: 04/04/18 15:14 SAK [id number]) Current Condition History of Current Condition Onset Date 15-20 years Current Complaints function-limiting right buttock pain History of Current Condition Reports no pain sitting but has pain with walking especially uphill. Can't go further than 1/4 mile. Occasional tingling right LE. Progressively getting worse. Scheduled for land-based PT. Walks every day, limps, would like to be able to walk up to 2 miles. Painful on treadmill, though reports a little easier. Not doing HEP consistently. Works out at gym especially in the winter. Prior Treatments and Tests PT chiropracter, PT, pain specialist with injection into lumbar spine and gluteal muscles, accupunture; nothing helpful. C56 fusion 1983. MRI of hip negative. Now has some tingling into right LE. At times feels right leg is going to give way, increased pain with lifting. Treatment Goals Patient/Caregiver Goals Walk 2 miles without pain. PT-OP-C Subjective Start: 04/02/18 10:34 Freq: Status: Active Protocol: Document 05/29/18 08:13 SAK (Rec: 05/29/18 09:17 SAK [id number]) OP-PT Subjective Patient Comments Patient Comments No change in symptoms, feels comfortable with HEP. When returns from [place] plans to see neurologist. PT-OP-F Manual Assessment Start: 04/02/18 16:29 Freq: Status: Active Protocol: Document 05/09/18 10:30 RCC (Rec: 05/09/18 12:00 RCC [id number]) Manual Assessments Soft Tissue Assessment Soft Tissue Mobility Assessment TTP: R piriformis PT-OP-J Posture/Palpation/Skin Start: 04/02/18 16:29 Freq: Status: Active Protocol: Document 04/02/18 10:34 SAK (Rec: 04/02/18 16:57 SAK [id number]) Posture Evaluation Position Standing Head/C-Spine Posture Forward Head T-Spine Posture Increased Kyphosis L-Spine Posture Flattened Pelvis Posture (R) Rotated Posterior Hip Posture (R) Externally Rotated PT-OP-K Range of Motion Start: 04/02/18 16:29 Freq: Status: Active Protocol: Document 04/02/18 10:34 SAK (Rec: 04/02/18 16:57 SAK [id number]) Hip Goniometric Range of Motion Hip ROM Limitations Hip ROM Limitations Soft Tissue Tightness Comments PSLR right 50, left 55. IR 30 hever. ER right 40, left 50 Ankle and Foot Goniometric Range of Motion Ankle and Foot ROM Limitations ROM Limitations Soft Tissue Tightness PT-OP-L Special Tests Start: 04/02/18 16:29 Freq: Status: Active Protocol: Document 04/02/18 10:34 SAK (Rec: 04/02/18 16:57 SAK [id number]) Special Tests Hip Special Tests Piriformis Test Results positive right PT-OP-M Strength Start: 04/02/18 16:29 Freq: Status: Active Protocol: Document 04/02/18 10:34 SAK (Rec: 04/02/18 16:57 SAK [id number]) Hip Strength Hip Manual Muscle Testing Right Flexion (L2) 4+ Good+ Extension (S1) 4 Good Abduction 4+ Good+ External Rotation 4- Good- Internal Rotation 4+ Good+ Left Flexion (L2) 4- Good- Extension (S1) 4 Good Abduction 4+ Good+ External Rotation 4- Good- Internal Rotation 4+ Good+ Knee Strength Knee Manual Muscle Testing Right Flexion (S2) 4+ Good+ Extension (L3) 5 Normal Left Flexion (S2) 4+ Good+ Extension (L3) 5 Normal Ankle/Foot Strength Ankle and Foot Manual Muscle Testing Right Dorsiflexion (L4) 5 Normal Left Dorsiflexion (L4) 5 Normal PT-OP-Q Treatments Start: 04/02/18 16:29 Freq: Status: Active Protocol: Document 05/29/18 08:13 SAK (Rec: 05/29/18 09:17 [facility] [id number]) Therapeutic Exercises Standing Exercises 2 Standing Exercise Name HC stretch Equipment Used RANDELL Comments Neutral, IR 1 Standing Exercise Name hamstring stretch Reps/Minutes 2x Comments neutral, IR Manual Therapy Treatment Soft Tissue Mobilization 2 Body Location right piriformis Mobilization Type Myofascial Release Rolling Sustained Pressure 1 Body Location right piriformis Mobilization Type Myofascial Release Sustained Pressure Intensity/Depth Moderate Body Position Prone Comments with hip IR/ER AROM by PT PT-OP-R Modalities Start: 04/02/18 16:29 Freq: Status: Active Protocol: Document 05/29/18 08:13 [facility] (Rec: 05/29/18 09:17 [facility] [id number]) Hot Pack/Cold Pack Treatment Hot Pack Location right piriformis, lumbar spine Patient Position Hooklying Treatment Duration (minutes) 15 Patient Tolerance Good Ultrasound Therapy Treatment Right Posterior Hip Treatment Duration (minutes) 8 Patient Position Prone Coupling Medium Ultrasound Gel Frequency Setting (mHz) 1 Mode Setting Continuous Duty Cycle 100% Intensity Setting (w/cm2) 1.5 Comments bilateral lumbar spine PT-OP-T Assessment and Plan Start: 04/02/18 16:29 Freq: Status: Active Protocol: Document 05/29/18 08:13 [facility] (Rec: 05/29/18 09:17 [facility] [id number]) Physical Therapy Assessment Goals Four Impairment ROM Short Term Goal (STG) Patient to be independent and compliant with HEP for purposes of LE flexibility STG Duration 6 wks Fire Warden Goal (LTG) Patient to demonstrate improvements in piriformis and hamstring length to WNL for improved functional mobility and activity tolerance LTG Duration 3 months Three Impairment Functional mobility Short Term Goal (STG) Improve LE functional questionaire to 70% STG Duration 6 wks Fire Warden Goal (LTG) Improve LE functional questionaire to at least 80% LTG Duration 3 months Two Impairment strength Short Term Goal (STG) Patient to be independent and compliant with HEP for purposes of LE strengthening and core stabilization STG Duration 6 wks Senior Care Goal (LTG) Patient to demonstrate 5/5 strength throughout LE's LTG Duration 3 months One Impairment Functional mobility; unable to walk greaer than 1/4 mile without pain Short Term Goal (STG) Patient able to walk 1 mile on level surfaces without an increase in pain or need for rest. STG Duration 6 wks Fire Warden Goal (LTG) Patient able to walk greater than 2 miles including elevation with minimal to no increase in pain LTG Duration 3 months Progress Towards Goals Progress Comments Goals for decreased pain and improved function not achieved . Patient is independent with HEP. Have not been able to get him to try aquatic exercise here, but states he will in [place]. Assessment Summary Assessment REady for discharge from PT Physical Therapy Plan Discharge Physical Therapy Discharge Reasons Plateau in Progress Discharge Comments Patient to seek consult with neurologist when he returns from winter away. Will continue with HEP and try aquatic exercise per PT recommendation
== END 2018-08-23 13:13 ==
LOC: PHYS 08:15
PROVIDERS: Family Provider Family Medicine; PCP Family Medicine; Visit Provider Orthopaedic Surgery
DX: S76.011A Strain of muscle, fascia and tendon of right hip, initial encounter (principal)
CPT/HCPCS: 97010; 97012; 97035; 97110; 97116; 97140; 97162; 97535

== ENCOUNTER → 2018-08-23 06:57 | Outpatient (CLI) | payer OTHER, SELFPAY ==
[2018-08-23 08:01] LABS: Add Manual Diff / Slide Review NO; Eosinophils Percent Auto 5.9 % (2-4); Hematocrit 44.1 % (41-53); Hemoglobin 15.4 g/dL (13.5-17.5); Lymphocytes Percent Auto 15.8 % (25-40); Mean Corpuscular Hemoglobin 31.9 PG (26-34); Mean Corpuscular Volume 91.1 fL (80-100); Monocytes Percent Auto 9.4 % (3-14); Neutrophils Absolute Auto 2800 /uL (3000-5900); Neutrophils Percent Auto 66.9 % (50-75); Platelet Count 175 X10^3/uL (150-400); Red Blood Cell Count 4.84 X10^6/uL (4.5-5.9); Red Cell Distribution Width 13.2 % (11.6-14.8); White Blood Cell Count 4.2 X10^3/uL (4.5-11.0)
[2018-08-23 08:07] LABS: Appearance Urine UA CLEAR; Bilirubin Urine UA NEGATIVE (NEGATIVE); Color Urine UA YELLOW; Glucose Urine UA NEGATIVE (Normal); Ketones Urine UA TRACE (NEGATIVE); Leukocyte Esterase Urine UA NEGATIVE (NEGATIVE); Nitrite Urine UA NEGATIVE (Negative); Occult Blood Urine UA TRACE-LYSED (Negative); Protein Urine UA TRACE (Negative); Specific Gravity Urine UA 1.025 (1.000-1.035); Urobilinogen Urine UA 0.2 E.U./dL (0.2)
[2018-08-23 08:09] LABS: Alanine Aminotransferase 25 IU/L (21-72); Albumin 4.3 g/dL (3.5-5.0); Albumin Globulin Ratio 1.6 (1.0-2.8); Alkaline Phosphatase 31 U/L (38-126); Aspartate Aminotransferase 29 IU/L (17-59); BUN Creatinine Ratio 10.8 (6-22); Bilirubin Total 0.7 mg/dL (0.2-1.3); Blood Urea Nitrogen 14 mg/dL (9-20); Calcium 8.9 mg/dL (8.4-10.2); Carbon Dioxide 30 mmol/L (22-32); Chloride 103 mmol/L (98-107); Cholesterol 212 mg/dL (140-199); Estimated Glomerular Filt Rate 54.1 mL/min (>60); Globulin 2.7 g/dL (1.7-4.1); Glucose 99 mg/dL (80-110); HDL Cholesterol 57 mg/dL (40-60); HEMOLYSIS < 15 (0-50); LDL Cholesterol Calculated 132 mg/dL (<100); Potassium 4.4 mmol/L (3.4-5.1); Sodium 143 mmol/L (137-145); Triglycerides 113 mg/dL (35-150)
[2018-08-23 08:38] LABS: Prostate Specific Antigen Scrn 4.17 ng/mL (0.1-4.0)
== END ==
PROVIDERS: PCP Family Medicine; Visit Provider Family Medicine
DX: E78.5 Hyperlipidemia, unspecified (principal); E78.2 Mixed hyperlipidemia; I10 Essential (primary) hypertension; Z51.81 Encounter for therapeutic drug level monitoring; Z12.5 Encounter for screening for malignant neoplasm of prostate
CPT/HCPCS: 36415; 80053; 80061; 81003; 84443; 85025; G0103

== ENCOUNTER → 2018-10-03 10:52 | Outpatient (CLI) | payer OTHER, SELFPAY ==
--- NOTE | 2018-10-04 16:10 | PM.PFT.1 ---
Pulmonary Function Test Referral & Results Date Patient Seen: 10/03/18 Requesting provider: Mar Jane Indication: Asbestosis Results: The spirometry demonstrates an FVC of 3.90 L which is 87% of predicted. The FEV1 was measured at 2.67 L which is 81% of predicted. The FEV1/FVC ratio was 68 which is 93% of predicted. Following the administration of bronchodilator there was a 14% improvement in FEV1 and a 96% improvement in FEF 25-75%. Lung volumes show an SVC of 3.76 L which is 80% of predicted. The diffusing capacity was measured at 20.46 which is 84% of predicted. No hemoglobin value was provided, so no correction for potential anemia could be made, if appropriate. The maximum voluntary ventilation was normal Interpretation: This study demonstrates mild obstructive lung disease with evidence of benefit following bronchodilator based on a 14% improvement in FEV1 and a 96% improvement in FEF 25-75% which was suggest significant improvement in small airway flow There is minimal reduction lung volumes suggesting mild restrictive lung disease Diffusing capacity is likely normal. No hemoglobin was provided so cannot be sure patient is not anemic but number is near normal Clinical correlation suggested
== END ==
PROVIDERS: PCP Family Medicine; Visit Provider Family Medicine
DX: Z77.090 Contact with and (suspected) exposure to asbestos (principal); Z87.891 Personal history of nicotine dependence
CPT/HCPCS: 94060; 94726; 94729

== ENCOUNTER → 2019-02-12 10:10 | Outpatient (CLI) | payer OTHER, SELFPAY ==
--- NOTE | 2019-02-12 10:12 | DI.RAD.S_ITS ---
PROCEDURE: XR RIBS LT MIN 3V W CXR1V INDICATIONS: left rib pain TECHNIQUE: 3 views of the left ribs were acquired, along with a single view chest. COMPARISON: [facility], , CHEST 2 VIEW, 12/30/2014, 9:53. FINDINGS: Surgical changes and devices: None. Bones and chest wall: No fractures or dislocations. No suspicious bony lesions. Overlying soft tissues appear unremarkable. Lungs and pleura: No pleural effusions or pneumothorax. Lungs appear clear. Mediastinum: Mediastinal contours appear normal. Heart size is normal. IMPRESSION: No displaced left rib fractures identified. Dictated by: Eyal Santoyo M.D. on 02/12/2019 at 9:28 Approved by: Eyal Santoyo M.D. on 02/12/2019 at 9:30
== END ==
PROVIDERS: PCP Family Medicine; Visit Provider Nurse Practitioner Family
DX: R07.81 Pleurodynia (principal)
CPT/HCPCS: 71101

== ENCOUNTER → 2019-03-14 07:52 | Outpatient (CLI) | payer OTHER, SELFPAY ==
[2019-03-14 09:23] LABS: Alanine Aminotransferase 26 IU/L (21-72); Albumin Globulin Ratio 1.3 (1.0-2.8); Alkaline Phosphatase 29 U/L (38-126); Aspartate Aminotransferase 27 IU/L (17-59); Bilirubin Total 0.6 mg/dL (0.2-1.3); Blood Urea Nitrogen 13 mg/dL (9-20); Carbon Dioxide 31 mmol/L (22-32); Chloride 99 mmol/L (98-107); Cholesterol 151 mg/dL (140-199); Estimated Glomerular Filt Rate 54.1 mL/min (>60); Glucose 97 mg/dL (80-110); HDL Cholesterol 62 mg/dL (40-60); HEMOLYSIS < 15 (0-50); LDL Cholesterol Calculated 81 mg/dL (<100); Sodium 137 mmol/L (137-145); Triglycerides 42 mg/dL (35-150)
[2019-03-14 09:43] LABS: Potassium 4.5 mmol/L (3.4-5.1)
[2019-03-14 10:13] LABS: Thyroid Stimulating Hormone 3.96 uIU/mL (0.47-4.68)
== END ==
PROVIDERS: PCP Family Medicine; Visit Provider Family Medicine
DX: E78.5 Hyperlipidemia, unspecified (principal); I10 Essential (primary) hypertension; R06.09 Other forms of dyspnea; Z95.5 Presence of coronary angioplasty implant and graft
CPT/HCPCS: 36415; 80053; 80061; 84443

== ENCOUNTER → 2019-05-12 11:55 | Outpatient (CLI) | payer OTHER, SELFPAY ==
--- NOTE | 2019-05-12 | DI.CT.S_ITS ---
PROCEDURE: CT ANGIO ABD AORTA RUNOFF INDICATIONS: PERIPHERAL VASCULAR DISEASE TECHNIQUE: After the administration of intravenous contrast, 2.5 mm sections acquired from T12 to the feet, with optional delayed image acquisition from the knees to the feet. 3-dimensional maximum intensity projection (MIP) coronal and sagittal reformats, and/or 3-dimensional volume rendering reformatting was then performed. For radiation dose reduction, the following was used: automated exposure control. COMPARISON: CT lower extremity runoff 04/12/2018, 12/08/2014. FINDINGS: Image quality: Excellent. Extravascular tissues: Liver is normal in size and enhancement. Gallbladder is unremarkable. Biliary system is non dilated. Pancreas enhances normally. Spleen is normal in size and enhancement. No adrenal nodules. Kidneys are normal in size and enhancement, without hydronephrosis. Non opacified bowel loops demonstrate normal wall thickness and enhancement. No free fluid or air. No retroperitoneal or mesenteric adenopathy. Tiny fat-containing periumbilical hernia. Bladder mostly decompressed and appears unremarkable. No adenopathy. Small fat containing left inguinal hernia, unchanged. Findings of prior right inguinal hernia repair. Prostatomegaly. Small bilateral hydroceles, unchanged. No suspicious bony lesions. No vertebral body compression fractures. Mild to moderate degenerative change. Abdominal aorta: Aneurysmal dilatation of the infrarenal abdominal aortic measuring 2.9 x 2.7 cm, (4/26), previously 2.9 x 2.7 cm. Stable appearance with extensive atherosclerotic plaque. Celiac, SMA, CLEVE are patent. Mild atherosclerotic plaque at the bilateral renal artery ostium. Right iliac artery: Greater than 70% stenosis of the common iliac artery at its origin, (4/35), unchanged. Greater than 70% stenosis of the internal iliac artery at its origin, (4/44), unchanged. Less than 50% stenosis at the external iliac artery at its origin, unchanged. Left iliac artery: Mild stenosis of the left common iliac artery, unchanged. Mild stenosis of the left internal iliac artery, unchanged. Approximately 50% stenosis at the external iliac artery at its origin, unchanged. Right lower extremity: Mild stenosis at the UX ARCHITECT. No significant stenosis of the profunda artery. Mild scattered calcified atherosclerotic plaque. Three-vessel runoff to the level of the ankle is present. Left lower extremity: Mild stenosis at the UX ARCHITECT. No significant stenosis of the profunda artery. Mild stenosis at the popliteal artery. Mild scattered calcified atherosclerotic plaque. Three-vessel runoff to the level of the ankle is present. IMPRESSION: Overall stable exam. 1. 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 2. Stable greater than 70% stenosis of the right common iliac artery and right internal iliac artery. 3. Bilateral three-vessel runoff is present. Dictated by: Gaurav Medley M.D. on 05/12/2019 at 13:53 Approved by: Gaurav Medley M.D. on 05/12/2019 at 14:42
[2019-05-12 12:26] LABS: BUN Creatinine Ratio 7.7 (6-22); Blood Urea Nitrogen 10 mg/dL (9-20); Estimated Glomerular Filt Rate 54.1 mL/min (>60)
== END ==
PROVIDERS: PCP Family Medicine; Visit Provider Internal Medicine Cardiovascular Disease
DX: I70.203 Unspecified atherosclerosis of native arteries of extremities, bilateral legs (principal); I25.119 Atherosclerotic heart disease of native coronary artery with unspecified angina pectoris; I71.4 Abdominal aortic aneurysm, without rupture; I70.0 Atherosclerosis of aorta
CPT/HCPCS: 36415; 75635; 82565; 84520; Q9967

== ENCOUNTER → 2020-05-31 10:04 | Outpatient (CLI) | payer MEDICARE, BC, SELFPAY ==
[2020-06-01 17:53] LABS: COVID19 Sendout Not Detected (Not Detect)
== END ==
PROVIDERS: PCP Family Medicine; Visit Provider Nurse Practitioner
DX: Z11.59 Encounter for screening for other viral diseases (principal)
CPT/HCPCS: 87635

== ENCOUNTER 2020-06-03 06:34 | Day surgery (SDC) | payer MEDICARE, BC, SELFPAY ==
--- NOTE | 2020-06-03 | PATH_ITS ---
[facility] Accession Number: [id number] . 01 Material submitted: . body - POLYP AT 70CM . 02 Diagnosis: Colon, Polyp at 70 cm, Biopsy: Tubular adenoma, one fragment. Separate fragments of colonic mucosa with increased intraepithelial lymphocytosis, consistent with lymphocytic colitis. V 06/07/2020 0940 Local . 02 Electronically signed: . Debbie Camarillo MD, Pathologist NPI- [id number] . 01 Gross description: . The specimen is received in formalin, labeled 70 cm polyp and consists of five cedillo fragments of soft tissue, measuring 0.8 x 0.6 x 0.2 cm in aggregate. The specimen is entirely submitted in cassette A1. ([id number]) /[facility] 06/04/2020 1553 Local . 02 Pathologist provided ICD-10: D12.6 . 02 CPT . 019220 Performed at: 01 [facility] [address] [facility], [place], [place] [id number] MD Hollis Contreras MD Phone: [phone] Performed at: 02 [facility] [address] [place], [place] [id number] MD Debbie Camarillo MD Phone: [phone]
[2020-06-03 07:25] VITALS: BP 174/87; PULSE 66; RESP 18; TEMP 36.4; O2SAT 99; BMI 26.4
[2020-06-03] MEDS: LACTATED RINGERS 1,000 ML 200 ML IV (07:30)
--- NOTE | 2020-06-03 07:54 | PM.HP.1 ---
History of Present Illness History of Present Illness Date Patient Seen: 06/03/20 Time Patient Seen: 07:54 Chief complaint: SDC Narrative: The patient is a gentleman here for screening colonoscopy. His last exam was 5 years ago. 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) Carotid stenosis (Chronic) Claudication in peripheral vascular disease (Chronic) Coronary artery disease (Chronic) Degenerative joint disease (Chronic 03/29/11) Elevated PSA (Chronic) History of adenomatous polyp of colon (Inactive ~2010) Hypertension, essential (Chronic 07/05/02) Peripheral vascular disease (Chronic) Peyronie's disease (Chronic 11/17/03) Presence of stent in right coronary artery (Chronic) Status post CVA (Inactive) Surgical History Status post angioplasty with stent (Acute) Status post hernia repair Family & Social History Family History Father Colon cancer Social History: household members spouse Tobacco & Substance use: Smoking Status Former smoker alcohol intake current alcohol intake frequency 0-2 drinks per day Substance Use Type does not use Meds Home Medications and Allergies Home Medications Medication Instructions Recorded Confirmed Type atorvastatin 20 mg tablet 20 mg PO QDAY #90 tab 10/08/18 06/03/20 Rx amlodipine 10 mg tablet 10 mg PO QDAY #90 tab 01/10/19 06/03/20 Rx paroxetine HCl 20 mg tablet 20 mg PO QDAY #90 tab 01/10/19 06/03/20 Rx nitroglycerin 0.6 mg sublingual 0.6 mg SL Q5-15M PRN #30 tab 02/05/19 06/03/20 Rx tablet coenzyme Q10 100 mg capsule 100 mg PO DAILY 02/12/19 06/03/20 History psyllium husk 3.4 gram/5.4 gram 1 tbsp PO DAILY 02/12/19 06/03/20 History oral powder alfuzosin 10 mg tablet,extended 10 mg PO DAILY 05/07/20 06/03/20 History release 24 hr clopidogrel 75 mg tablet 75 mg PO DAILY 05/07/20 06/03/20 History lisinopril 5 mg tablet 5 mg PO DAILY 05/07/20 06/03/20 History omeprazole 20 mg capsule,delayed 20 mg PO QDAY PRN cap 05/07/20 06/03/20 History release Allergies Allergy/AdvReac Type Severity Reaction Status Date / Time No Known Drug Allergies Allergy Verified 05/07/20 09:21 Review of Systems Review of Systems Narrative: No recent cardiac issues. No breathing problems. No black or bloody bowel movements. No seizures or blackouts. Exam Vital Signs (past 8 hours): - 06/03/20 07:25 Temperature 97.6 F Pulse Rate 66 Respiratory Rate 18 Blood Pressure 174/87 H Pulse Oximetry 99 Oxygen Delivery Method Room Air Narrative Exam Narrative: Pleasant cooperative patient no apparent distress. Lungs are clear to auscultation. No rales or rhonchi. Heart regular rate and rhythm no murmur gallop. Abdomen is soft nontender without mass. No obvious hernias. Patient is alert and oriented x3. Assessment & Plan Assessment & Plan narrative: The patient for a screening colonoscopy. I have discussed the procedure with them. Risks of bleeding, perforation which would necessitate major operation, failure to find remove all lesions, the potential tattoo were all discussed. All questions were answered. They wished to proceed.
--- NOTE | 2020-06-03 08:02 | PM.PREOP ---
Pre-operative Note COVID-19 COVID-19 status: Negative Result date/Date tested (Pos, Neg/Pending): 05/31/20 Interval Note History & Physical reviewed/Exam performed by Physician: Yes Changes to H&P: No ASA Class (for procedural sedation): III
[2020-06-03] MEDS: fentaNYL 250 MCG/5 ML INJ IV (08:04)
[2020-06-03] MEDS: MIDAZOLAM 5 MG/5 ML VIAL IV (08:04)
--- NOTE | 2020-06-03 08:26 | PM.OP.ENDO ---
Operative Date/Time/Diagnoses Date of procedure: 06/03/20 Time of procedure: 08:26 Pre-op diagnosis: Screening exam. He personal history of polyps. Father with colon cancer. Last exam 5 years ago Post-op diagnosis: same (One small polyp. Sigmoid diverticulosis.) Procedure & Clinicians Study performed: Colonoscopy with cold biopsy Same procedure as scheduled: Yes Indications: Screening Surgeon: Neville Joe Procedure Notes SCOAP/Timeout: Performed Procedure in detail: The patient was placed in the left lateral decubitus position and underwent IV sedation directed by the surgeon consisting of fentanyl and Versed. Digital exam was remarkable for a moderately enlarged prostate. No palpable masses.. The scope was inserted and advanced through the rectum into the sigmoid, descending, transverse, and ascending colon. Patient was noted to have sigmoid diverticulosis. The cecum was reached identified by the ileocecal valve and the appendiceal opening. The scope was gradually brought out. One Polyp was found at 70 cm from the anal verge. It was biopsied and removed.. The scope ultimately was retroflexed in the rectum. The appearance was normal. The scope was removed and the patient tolerated the procedure well. Prep was excellent Scope withdrawal time: 8 minutes 1/2 minutes(10 total Sedation minutes: 19 Findings: diverticulosis and polyp (One small polyp) Specimen(s): other (Polyp) Complications: none Post-procedure Recommendations: Colonscopy in 5 years, High fiber diet and Other recommendation (Take Metamucil daily) Follow up: as needed Disposition: PACU
[2020-06-03 08:29] VITALS: BP 110/62; PULSE 57; RESP 20; TEMP 36.2; O2SAT 97
[2020-06-03 08:34] VITALS: BP 115/65; PULSE 59; RESP 10; O2SAT 96
[2020-06-03 08:38] VITALS: BP 103/57; PULSE 76; RESP 18; TEMP 35.9; O2SAT 97
[2020-06-03 08:48] VITALS: BP 104/53; PULSE 59; RESP 12; O2SAT 96
[2020-06-03 09:08] VITALS: BP 113/69; PULSE 54; RESP 15; TEMP 36.8; O2SAT 96
== END 2020-06-03 09:14 | disposition home or self-care (01) ==
PROVIDERS: PCP Internal Medicine; Referring Provider Internal Medicine; Visit Provider Specialist
PROC: 0DJD8ZZ Inspection of Lower Intestinal Tract, Via Natural or Artificial Opening Endoscopic (ICD-10-PCS; CPT 45378; principal; 2020-06-03 07:45)
DX: Z12.11 Encounter for screening for malignant neoplasm of colon (principal); Z86.010 Personal history of colon polyps; Z80.0 Family history of malignant neoplasm of digestive organs; K57.30 Diverticulosis of large intestine without perforation or abscess without bleeding; D12.6 Benign neoplasm of colon, unspecified; I10 Essential (primary) hypertension; F41.9 Anxiety disorder, unspecified; N40.1 Benign prostatic hyperplasia with lower urinary tract symptoms; N13.8 Other obstructive and reflux uropathy; I25.10 Atherosclerotic heart disease of native coronary artery without angina pectoris; I73.9 Peripheral vascular disease, unspecified
CPT/HCPCS: 45380; 99152; J2250; J3010

== ENCOUNTER → 2020-06-18 09:21 | Outpatient (CLI) | payer MEDICARE, BC, SELFPAY ==
[2020-06-18 10:53] LABS: HEMOLYSIS < 15 (0-50)
[2020-06-18 10:59] LABS: Alanine Aminotransferase 21 IU/L (<50); Albumin 3.9 g/dL (3.5-5.0); Albumin Globulin Ratio 1.3 (1.0-2.8); Alkaline Phosphatase 26 U/L (38-126); Aspartate Aminotransferase 30 IU/L (17-59); Bilirubin Total 0.5 mg/dL (0.2-1.3); Blood Urea Nitrogen 16 mg/dL (9-20); Calcium 8.6 mg/dL (8.4-10.2); Carbon Dioxide 32 mmol/L (22-32); Chloride 101 mmol/L (98-107); Estimated Glomerular Filt Rate > 60.0 mL/min (>60); Globulin 2.9 g/dL (1.7-4.1); Glucose 94 mg/dL (80-110); Potassium 4.9 mmol/L (3.4-5.1); Sodium 135 mmol/L (137-145); Total Protein 6.8 g/dL (6.3-8.2)
== END ==
PROVIDERS: PCP Internal Medicine; Referring Provider Internal Medicine; Visit Provider Internal Medicine
DX: E78.2 Mixed hyperlipidemia (principal)
CPT/HCPCS: 36415; 80053; 84153

== ENCOUNTER → 2021-05-17 08:21 | Outpatient (CLI) | payer MEDICARE, BC, SELFPAY ==
[2021-05-18 06:27] LABS: PSA Free % 17.5 % (.); PSA, Total 2.4 ng/mL (0.0-4.0)
== END ==
PROVIDERS: PCP Internal Medicine; Referring Provider Urology; Visit Provider Urology
DX: R97.20 Elevated prostate specific antigen [PSA] (principal)
CPT/HCPCS: 36415; 84153; 84154

== ENCOUNTER → 2021-05-23 08:07 | Outpatient (CLI) | payer MEDICARE, BC, SELFPAY ==
[2021-05-23 08:27] LABS: Add Manual Diff / Slide Review NO; Basophils Absolute Auto 0 /uL (0-100); Basophils Percent Auto 0.7 % (0-2); Eosinophils Absolute Auto 400 /uL (0-450); Eosinophils Percent Auto 8.2 % (2-4); Hematocrit 44.6 % (41-53); Hemoglobin 15.1 g/dL (13.5-17.5); Lymphocytes Absolute Auto 700 /uL (1100-4500); Lymphocytes Percent Auto 15.9 % (25-40); Mean Corpuscular HGB Conc 33.8 % (30-36); Mean Corpuscular Hemoglobin 31.3 PG (26-34); Mean Corpuscular Volume 92.5 fL (80-100); Monocytes Absolute Auto 500 /uL (0-900); Monocytes Percent Auto 10.4 % (3-14); Neutrophils Absolute Auto 3000 /uL (1500-7000); Neutrophils Percent Auto 64.8 % (50-75); Platelet Count 151 X10^3/uL (150-400); Red Blood Cell Count 4.82 X10^6/uL (4.5-5.9); Red Cell Distribution Width 13.6 % (11.6-14.8); White Blood Cell Count 4.6 X10^3/uL (4.5-11.0)
[2021-05-23 09:06] LABS: Alanine Aminotransferase 23 IU/L (<50); Albumin 4.1 g/dL (3.5-5.0); Albumin Globulin Ratio 1.6 (1.0-2.8); Alkaline Phosphatase 27 U/L (38-126); Aspartate Aminotransferase 29 IU/L (17-59); BUN Creatinine Ratio 10.3 (6-22); Bilirubin Total 0.7 mg/dL (0.2-1.3); Blood Urea Nitrogen 12 mg/dL (9-20); Calcium 9.2 mg/dL (8.4-10.2); Carbon Dioxide 30 mmol/L (22-32); Chloride 97 mmol/L (98-107); Cholesterol 138 mg/dL (140-199); Estimated Glomerular Filt Rate > 60.0 mL/min (>60); Globulin 2.5 g/dL (1.7-4.1); Glucose 104 mg/dL (80-110); HDL Cholesterol 63 mg/dL (40-60); HEMOLYSIS < 15 (0-50); LDL Cholesterol Calculated 62 mg/dL (<100); Potassium 4.7 mmol/L (3.4-5.1); Sodium 131 mmol/L (137-145); Total Protein 6.6 g/dL (6.3-8.2); Triglycerides 67 mg/dL (35-150)
== END ==
PROVIDERS: PCP Family Medicine; Referring Provider Family Medicine; Visit Provider Family Medicine
DX: E78.2 Mixed hyperlipidemia (principal); I10 Essential (primary) hypertension
CPT/HCPCS: 36415; 80053; 80061; 85025

== ENCOUNTER → 2022-01-05 09:30 | Outpatient (CLI) | payer MEDICARE, BC, SELFPAY ==
[2022-01-05 10:56] LABS: Add Manual Diff / Slide Review NO; Basophils Absolute Auto 100 /uL (0-100); Basophils Percent Auto 1.1 % (0-2); Eosinophils Absolute Auto 300 /uL (0-450); Eosinophils Percent Auto 5.5 % (2-4); Hematocrit 41.6 % (41-53); Hemoglobin 13.9 g/dL (13.5-17.5); Lymphocytes Absolute Auto 700 /uL (1100-4500); Lymphocytes Percent Auto 13.9 % (25-40); Mean Corpuscular HGB Conc 33.4 % (30-36); Mean Corpuscular Hemoglobin 30.6 PG (26-34); Mean Corpuscular Volume 91.8 fL (80-100); Monocytes Absolute Auto 500 /uL (0-900); Monocytes Percent Auto 10.4 % (3-14); Neutrophils Absolute Auto 3500 /uL (1500-7000); Neutrophils Percent Auto 69.1 % (50-75); Platelet Count 154 X10^3/uL (150-400); Red Blood Cell Count 4.53 X10^6/uL (4.5-5.9); Red Cell Distribution Width 13.3 % (11.6-14.8); White Blood Cell Count 5.1 X10^3/uL (4.5-11.0)
[2022-01-05 11:04] LABS: Alanine Aminotransferase 18 IU/L (<50); Albumin Globulin Ratio 1.4 (1.0-2.8); Alkaline Phosphatase 21 U/L (38-126); Aspartate Aminotransferase 26 IU/L (17-59); Bilirubin Total 0.7 mg/dL (0.2-1.3); Blood Urea Nitrogen 12 mg/dL (9-20); Calcium 8.7 mg/dL (8.4-10.2); Carbon Dioxide 34 mmol/L (22-32); Chloride 100 mmol/L (98-107); Cholesterol 131 mg/dL (140-199); Estimated Glomerular Filt Rate 55 mL/min (>60); Globulin 2.8 g/dL (1.7-4.1); Glucose 101 mg/dL (80-110); HDL Cholesterol 48 mg/dL (40-60); HEMOLYSIS < 15 (0-50); LDL Cholesterol Calculated 68 mg/dL (<100); Potassium 4.5 mmol/L (3.4-5.1); Sodium 135 mmol/L (137-145); Total Protein 6.8 g/dL (6.3-8.2); Triglycerides 75 mg/dL (35-150)
[2022-01-05 11:34] LABS: Prostate Specific Antigen 3.82 ng/mL (0.10-4.00)
== END ==
PROVIDERS: PCP Family Medicine; Referring Provider Family Medicine; Visit Provider Family Medicine
DX: E78.2 Mixed hyperlipidemia (principal); N40.1 Benign prostatic hyperplasia with lower urinary tract symptoms; I10 Essential (primary) hypertension; N13.8 Other obstructive and reflux uropathy; R97.20 Elevated prostate specific antigen [PSA]
CPT/HCPCS: 36415; 80053; 80061; 84153; 85025

== ENCOUNTER → 2022-02-02 07:48 | Outpatient (CLI) | payer MEDICARE, BC, SELFPAY ==
[2022-02-02 08:46] LABS: COVID19 -Nasal RAPID Negative (Negative)
== END ==
PROVIDERS: PCP Family Medicine; Referring Provider Internal Medicine; Visit Provider Internal Medicine
DX: Z20.822 Contact with and (suspected) exposure to COVID-19 (principal)
CPT/HCPCS: 87635; C9803

== ENCOUNTER → 2022-02-03 06:52 | Outpatient (CLI) | payer MEDICARE, BC, SELFPAY ==
--- NOTE | 2022-02-10 08:12 | PM.PFT.1 ---
Pulmonary Function Test Referral & Results Date Patient Seen: 02/03/22 Requesting provider: Corey Costa Results: The spirometry demonstrates an FVC of 3.52 L which is 81% of predicted. The FEV1 was measured at 2.40 L which is 76% of predicted. The FEV1/FVC ratio was 68 which is 94% of predicted. Following the administration of bronchodilator there was a 7% improvement in FEV1 and a 29% improvement in FEF 25-75% Lung volumes show an SVC of 3.19 L which is 69% of predicted. The diffusing capacity was measured at 22.15 which is 65% of predicted. No hemoglobin value was provided, so no correction for potential anemia could be made, if appropriate. The maximum voluntary ventilation was reduced Interpretation: This study demonstrates possibly very mild obstructive lung disease based on reduction FEV1 although FEV1/FVC ratio is preserved. There is also some minimal evidence of improvement following bronchodilator particularly small airway flow as noted by the improvement in the FEF 25-75% as above There is also moderate reduction in lung volumes suggesting restrictive lung disease which may well explain the abnormality of the FEV1 above There is a [id number] reduction diffusing capacity suggesting disease at the capillary alveolar level as well Compared to PFTs performed in September 2018 current study shows decline in SVC which would suggest possible progression of restrictive lung disease as well as a decline in diffusing capacity Clinical correlation suggested
== END ==
PROVIDERS: PCP Family Medicine; Referring Provider Internal Medicine Cardiovascular Disease; Visit Provider Internal Medicine Cardiovascular Disease
DX: R06.2 Wheezing (principal); J98.8 Other specified respiratory disorders; Z87.891 Personal history of nicotine dependence
CPT/HCPCS: 94060; 94726; 94729

== ENCOUNTER → 2022-02-24 10:28 | Outpatient (CLI) | payer MEDICARE, BC, SELFPAY ==
[2022-02-24 11:54] LABS: Erythrocyte Sedimentation Rate 28 MM/HR (0-15)
[2022-02-24 12:00] LABS: Creatine Kinase 67 U/L (55-170)
[2022-02-24 12:01] LABS: Rheumatoid Factor < 8.6 IU/mL (<12.0)
[2022-02-24 12:15] LABS: Vitamin D 25 Hydroxy (D3) 45.2 ng/mL (30.0-100.0)
[2022-02-24 12:30] LABS: Thyroid Stimulating Hormone 3.09 uIU/mL (0.47-4.68)
[2022-02-28 03:11] LABS: CCP Antibodies IgG/IgA 5 units (0-19)
== END ==
PROVIDERS: PCP Family Medicine; Referring Provider Family Medicine; Visit Provider Family Medicine
DX: I73.9 Peripheral vascular disease, unspecified (principal); M79.10 Myalgia, unspecified site; R20.2 Paresthesia of skin; M79.18 Myalgia, other site
CPT/HCPCS: 36415; 82306; 82550; 84443; 85651; 86140; 86200; 86430

== ENCOUNTER → 2022-04-12 10:32 | Outpatient (CLI) | payer MEDICARE, BC, SELFPAY ==
[2022-04-12 12:32] LABS: Prostate Specific Antigen 3.65 ng/mL (0.10-4.00)
== END ==
PROVIDERS: PCP Family Medicine; Referring Provider Urology; Visit Provider Urology
DX: R97.20 Elevated prostate specific antigen [PSA] (principal)
CPT/HCPCS: 36415; 84153

== ENCOUNTER → 2022-04-25 10:00 | Outpatient (CLI) | payer MEDICARE, BC, SELFPAY ==
[2022-04-25 12:08] LABS: Cholesterol 150 mg/dL (140-199); HDL Cholesterol 78 mg/dL (40-60); LDL Cholesterol Calculated 54 mg/dL (<100); Triglycerides 89 mg/dL (35-150)
== END ==
PROVIDERS: PCP Family Medicine; Referring Provider Family Medicine; Visit Provider Family Medicine
DX: I10 Essential (primary) hypertension (principal); E78.2 Mixed hyperlipidemia; I25.10 Atherosclerotic heart disease of native coronary artery without angina pectoris
CPT/HCPCS: 36415; 80061

== ENCOUNTER 2022-06-16 18:21 | Inpatient (IN) | payer MEDICARE, BC, SELFPAY ==
[2022-06-16] VITALS (15 sets, daily range): BP systolic 128–162; BP diastolic 70–77; PULSE 57–73; RESP 14–24; TEMP 36.6; O2SAT 95–100; BMI 29.2
--- NOTE | 2022-06-16 18:40 | DI.RAD.S_ITS ---
PROCEDURE: XR CHEST 1V INDICATIONS: chest pain TECHNIQUE: One view of the chest was acquired. COMPARISON: [facility], CHEST 2 VIEW, 12/30/2014, 9:53. [facility], CHEST 2 VIEW, 01/17/2012, 8:34. FINDINGS: Surgical changes and devices: None. Lungs and pleura: Low lung volumes without dense consolidation or pleural effusion. Mediastinum: Mediastinal contours appear normal. Heart size is normal. Bones and chest wall: No suspicious bony lesions. Overlying soft tissues appear unremarkable. IMPRESSION: No acute radiographic abnormality. Low lung volumes. Dictated by: Alli Anne M.D. on 06/16/2022 at 19:20 Approved by: Alli Anne M.D. on 06/16/2022 at 19:20
[2022-06-16 19:21] LABS: Add Manual Diff / Slide Review NO; Basophils Absolute Auto 0 /uL (0-100); Basophils Percent Auto 0.4 % (0-2); Eosinophils Absolute Auto 0 /uL (0-450); Eosinophils Percent Auto 0.4 % (2-4); Hematocrit 41.5 % (41-53); Hemoglobin 14.5 g/dL (13.5-17.5); Lymphocytes Absolute Auto 700 /uL (1100-4500); Lymphocytes Percent Auto 9.3 % (25-40); Mean Corpuscular Hemoglobin 32.1 PG (26-34); Mean Corpuscular Volume 91.7 fL (80-100); Monocytes Absolute Auto 600 /uL (0-900); Monocytes Percent Auto 7.8 % (3-14); Neutrophils Absolute Auto 6200 /uL (1500-7000); Neutrophils Percent Auto 82.1 % (50-75); Platelet Count 164 X10^3/uL (150-400); Red Blood Cell Count 4.52 X10^6/uL (4.5-5.9); Red Cell Distribution Width 14.8 % (11.6-14.8); White Blood Cell Count 7.5 X10^3/uL (4.5-11.0)
[2022-06-16 20:04] LABS: Alanine Aminotransferase 27 IU/L (<50); Albumin 3.4 g/dL (3.5-5.0); Albumin Globulin Ratio 1.4 (1.0-2.8); Alkaline Phosphatase 28 U/L (38-126); Aspartate Aminotransferase 24 IU/L (17-59); BUN Creatinine Ratio 17.4 (6-22); Bilirubin Total 0.3 mg/dL (0.2-1.3); Blood Urea Nitrogen 21 mg/dL (9-20); Calcium 8.3 mg/dL (8.4-10.2); Carbon Dioxide 30 mmol/L (22-32); Chloride 100 mmol/L (98-107); Creatine Kinase 62 U/L (55-170); Estimated Glomerular Filt Rate > 60 mL/min (>60); Globulin 2.5 g/dL (1.7-4.1); Glucose 148 mg/dL (80-110); HEMOLYSIS 18 (0-50); Lipase 60 U/L (23-300); Magnesium 2.2 mg/dL (1.6-2.3); Potassium 4.2 mmol/L (3.4-5.1); Sodium 132 mmol/L (137-145); Total Protein 5.9 g/dL (6.3-8.2)
--- NOTE | 2022-06-16 20:18 | ED_ITS ---
HPI - Arrhythmia/Palpitations <Nadege Jonathan, DO - Last Filed: 06/19/22 16:44> General Chief Complaint: Arrhythmia/Palpitations Stated Complaint: lighthead/bp high/thinks afib hx stroke Time Seen by Provider: 06/16/22 20:16 Source: patient Mode of arrival: Ambulatory History of Present Illness HPI narrative: Patient is a 76-year-old male history of polymyalgia rheumatica, Peyronie's disease, BPH, hypertension history of coronary artery disease and CVA presents today with lightheadedness and palpitations. He says he has had some lightheaded this off and on for the past few days. Today he says he did not fe el very good he felt a little shaky. At which point a tried to take blood pressure he used his 's apple watch which recorded him having atrial fibrillation with a heart rate of 145-154 for a few hours. He now is in sinus rhythm he is overall feeling better he has a normal blood pressure. He says that he is having some wheezing which he is able to reproduce by exhaling forcefully. He apparently does have albuterol inhaler he has been using his albuterol inhaler which he says helps but it does not last very long. He denies any orthopnea no significant chest discomfort while walking. He states he does drink alcohol but has not had anything to drink for the last 2 days. He had quite a bit to drink 2 nights ago with friends. Typically drinks about 3 drinks a day. Related Data Home Medications Medication Instructions Recorded Confirmed clopidogrel 75 mg tablet (Plavix) 75 mg PO DAILY 05/07/20 06/17/22 lisinopril 5 mg tablet 5 mg PO DAILY 05/07/20 06/17/22 amlodipine 5 mg tablet 5 mg PO DAILY 03/02/21 06/17/22 gabapentin 300 mg capsule 300 mg PO TID 03/02/21 06/17/22 paroxetine HCl 20 mg tablet 20 mg PO DAILY 04/19/21 06/17/22 alfuzosin 10 mg tablet,extended 10 mg PO DAILY 01/02/22 06/17/22 release 24 hr metoprolol succinate 25 mg 25 mg PO DAILY 01/05/22 06/17/22 tablet,extended release 24 hr netarsudil 0.02 % eye drops 1 drp EYE-RIGHT BEDTIME 01/05/22 06/17/22 (Rhopressa) amlodipine 5 mg PO DAILY 06/17/22 06/17/22 paroxetine HCl 20 mg PO DAILY 06/17/22 06/17/22 prednisone 17 mg PO DAILY 06/17/22 06/17/22 Previous Rx's Medication Instructions Recorded handicap placard #1 ea 01/04/22 albuterol sulfate 90 mcg/actuation 2 puff inhalation Q6H PRN 06/16/22 aerosol inhaler (ProAir HFA) shortness of breath or wheezing #6.7 grams Allergies Allergy/AdvReac Type Severity Reaction Status Date / Time No Known Drug Allergies Allergy Verified 04/19/22 09:40 Review of Systems <Nadege Castillo DO - Last Filed: 06/19/22 16:44> Review of Systems Narrative: GENERAL: Denies chills, fatigue, malaise, fever, sweats, travel HEENT: Denies sinus pain, ear pain, sore throat, difficulty swallowing, neck pain RESPIRATORY: Denies dyspnea, cough, wheezing, hemoptysis, sputum. CARDIOVASCULAR: See HPI GASTROINTESTINAL: Denies nausea, vomiting, abdominal pain, diarrhea, constipation, melena. : Denies dysuria, frequency, incontinence, hematuria, urinary retention, flank pain. MUSCULOSKELETAL: Denies weakness, joint pain, or bony pain SKIN: No rash, no erythema, no pruritus NEUROLOGIC: Denies weakness, dizziness, headache, numbness, change in speech, confusion PSYCHIATRIC: No concerning psychosocial issues. 12 point review of systems is negative except for those stated above and HPI Patient History <Nadege Castillo DO - Last Filed: 06/19/22 16:44> Medical History Anxiety disorder, unspecified (09/14/15) Arm paresthesia, left Bilateral lower extremity edema BPH w urinary obs/LUTS (07/05/02) Carotid stenosis Chronic anticoagulation Claudication in peripheral vascular disease Coronary artery disease Degenerative joint disease (03/29/11) OSBORN (dyspnea on exertion) Elevated PSA History of adenomatous polyp of colon (~2010) History of tobacco use Hypertension, essential (07/05/02) Left leg paresthesias Lymphocytic colitis Myalgia Myalgia due to statin Nocturia associated with benign prostatic hyperplasia Peripheral vascular disease Peyronie's disease (11/17/03) PMR (polymyalgia rheumatica) Presence of stent in right coronary artery Right buttock pain Status post CVA Urinary urgency Wheezing Surgical History Status post angioplasty with stent Status post hernia repair Family History Father Colon cancer Social History household members: spouse Smoking Status: Former smoker alcohol intake: current substance use type: does not use Smoking Status: Former smoker alcohol intake frequency: 0-2 drinks per day Substance Use Type: does not use Exam <Nadege Castillo DO - Last Filed: 06/19/22 16:44> Initial Vital Signs Initial Vital Signs: Vital Signs Temperature 97.9 F 06/16/22 18:34 Pulse Rate 73 06/16/22 18:34 Respiratory Rate 22 06/16/22 18:34 Blood Pressure 144/70 H 06/16/22 18:34 Pulse Oximetry 96 06/16/22 18:34 Oxygen Delivery Method 06/16/22 18:34 GENERAL: Alert pleasant 76-year-old male and in no acute distress. HEENT: Head atraumatic,EOMI, pupils reactive, face symmetric, moist mucous membranes CARDIOVASCULAR: Regular rate and rhythm without murmurs, rubs or gallops. RESPIRATORY: Breath sounds equal bilaterally, no wheezes rales or rhonchi. ABDOMEN: Soft, nontender. Normoactive bowel sounds all 4 quadrants. No gu arding or rebound. EXTREMITIES: Normal range of motion, no clubbing or edema. Neurovascularly intact NEUROLOGICAL: Alert and oriented x4.Normal gait and speech. SKIN: Warm, dry, no laceration, no petechiae, no rashes or lesions. <Margot Murphy MD - Last Filed: 06/17/22 07:59> Initial Vital Signs Initial Vital Signs: Vital Signs Temperature 97.9 F 06/16/22 18:34 Pulse Rate 73 06/16/22 18:34 Respiratory Rate 22 06/16/22 18:34 Blood Pressure 144/70 H 06/16/22 18:34 Pulse Oximetry 96 06/16/22 18:34 Oxygen Delivery Method 06/16/22 18:34 Course <Nadege Castillo, DO - Last Filed: 06/19/22 16:44> Orders Ordered: Discontinued Medications Acetaminophen (Acetaminophen 325 Mg Tablet) 650 mg PO Q6HR PRN PRN Reason: Fever/Mild Pain (1-3) Albuterol/Ipratropium (Albuterol/Ipratropium 3 Ml Ampul) 3 ml INH NOW ONE Stop: 06/16/22 20:31 Last Admin: 06/16/22 21:10 Dose: 3 ml Documented By: ZAFAR Amlodipine Besylate (Amlodipine 5 Mg Tablet) 5 mg PO DAILY [facility] Last Admin: 06/19/22 10:25 Dose: 5 mg Documented By: Admin: 06/18/22 08:58 Dose: 5 mg Documented By: BERNICE Aspirin (Aspirin Ec 81 Mg Tablet) 81 mg PO DAILY [facility] Last Admin: 06/17/22 12:56 Dose: Not Given Documented By: RL Atorvastatin Calcium (Atorvastatin 20 Mg Tablet) 40 mg PO BEDTIME [facility] Last Admin: 06/18/22 21:04 Dose: 40 mg Documented By: Admin: 06/17/22 20:33 Dose: 40 mg Documented By: YODIT Carvedilol (Carvedilol 3.125 Mg Tablet) 3.125 mg PO BID [facility] Last Admin: 06/17/22 14:02 Dose: Not Given Documented By: SUKHI Clopidogrel Bisulfate (Clopidogrel 75 Mg Tablet) 75 mg PO DAILY [facility] Last Admin: 06/19/22 10:25 Dose: 75 mg Documented By: Admin: 06/18/22 08:59 Dose: 75 mg Documented By: Admin: 06/17/22 13:01 Dose: 75 mg Documented By: BERNICE Furosemide (Furosemide 40 Mg/4 Ml Vial) 40 mg IV NOW ONE Stop: 06/16/22 22:41 Last Admin: 06/16/22 23:46 Dose: 40 mg Documented By: TEE Gabapentin (Gabapentin 300 Mg Capsule) 300 mg PO TID [facility] Last Admin: 06/17/22 11:51 Dose: 300 mg Documented By: SUKHI Gabapentin (Gabapentin 300 Mg Capsule) 300 mg PO TID [facility] Last Admin: 06/19/22 10:24 Dose: 300 mg Documented By: Admin: 06/18/22 21:04 Dose: 300 mg Documented By: Admin: 06/18/22 14:35 Dose: 300 mg Documented By: Admin: 06/18/22 08:57 Dose: 300 mg Documented By: Admin: 06/17/22 20:33 Dose: 300 mg Documented By: YODIT Heparin Sodium (Porcine) (Heparin 5,000 Unit/Ml Vial) 5,000 unit IV NOW ONE Stop: 06/16/22 22:41 Last Admin: 06/16/22 23:46 Dose: 5,000 unit Documented By: TEE Heparin Sodium/Dextrose (Heparin Drip) 25,000 unit in 500 mls @ 22.861 mls/hr IV CONT [facility]; Protocol Last Admin: 06/17/22 00:02 Dose: Not Given Documented By: SUKHI(2) Heparin Sodium/Dextrose (Heparin Drip) 25,000 unit in 500 mls @ 20 mls/hr IV CONT [facility]; Protocol Stop: 06/18/22 23:59 Last Titration: 06/19/22 07:48 Dose: 750 unit/hr, 15 mls/hr Documented By: Admin: 06/18/22 08:21 Dose: 700 unit/hr, 14 mls/hr Documented By: Titration: 06/18/22 08:21 Dose: 700 unit/hr, 14 mls/hr Documented By: Titration: 06/17/22 07:46 Dose: 700 unit/hr, 14 mls/hr Documented By: Titration: 06/17/22 06:46 Dose: 0 unit/hr, 0 mls/hr Documented By: Titration: 06/17/22 06:46 Dose: 800 unit/hr, 16 mls/hr Documented By: Admin: 06/16/22 23:45 Dose: 1,000 unit/hr, 20 mls/hr Documented By: TEE Lisinopril (Lisinopril 5 Mg Tablet) 5 mg PO DAILY [facility] Last Admin: 06/17/22 11:31 Dose: Not Given Documented By: SUKHI Lisinopril (Lisinopril 5 Mg Tablet) 5 mg PO BEDTIME [facility] Last Admin: 06/18/22 21:04 Dose: 5 mg Documented By: Admin: 06/17/22 20:32 Dose: 5 mg Documented By: YODIT Metoprolol Succinate (Metoprolol Er 25 Mg Tablet) 25 mg PO BID [facility] Last Admin: 06/17/22 13:00 Dose: 25 mg Documented By: Admin: 06/17/22 11:31 Dose: Not Given Documented By: SUKHI Metoprolol Succinate (Metoprolol Er 25 Mg Tablet) 25 mg PO DAILY [facility] Last Admin: 06/19/22 10:25 Dose: 25 mg Documented By: Admin: 06/18/22 08:57 Dose: 25 mg Documented By: Admin: 06/17/22 13:18 Dose: Not Given Documented By: BERNICE Alfuzosin 10 Mg Tablet Extended Release 24 Hr 10 mg PO DAILY [facility] Last Admin: 06/17/22 11:30 Dose: Not Given Documented By: SUKHI Alfuzosin 10 Mg Tablet Extended Release 24 Hr 10 mg PO BEDTIME [facility] Last Admin: 06/18/22 21:05 Dose: 10 mg Documented By: Admin: 06/17/22 20:33 Dose: 10 mg Documented By: YODIT Netarsudil ( Rhopressa) 0.02% Ophthalmic Solution 1 each EYE-BOTH BEDTIME [facility] Last Admin: 06/18/22 21:06 Dose: 1 each Documented By: Admin: 06/17/22 20:38 Dose: 1 each Documented By: YODIT Paroxetine HCl (Paroxetine 20 Mg Tablet) 20 mg PO DAILY [facility] Last Admin: 06/19/22 10:28 Dose: 20 mg Documented By: Admin: 06/18/22 08:59 Dose: 20 mg Documented By: BERNICE Polyethylene Glycol (Polyethylene Glycol 3350 17 Gm Powd.Pack) 17 gm PO DAILY PRN PRN Reason: Constipation Prednisone (Prednisone 5 Mg Tablet) 15 mg PO DAILY [facility] Last Admin: 06/19/22 10:24 Dose: 15 mg Documented By: Admin: 06/18/22 17:25 Dose: 15 mg Documented By: BERNICE Prednisone (Prednisone 1 Mg Tablet) 2 mg PO DAILY [facility] Last Admin: 06/19/22 10:33 Dose: 2 mg Documented By: Admin: 06/18/22 17:26 Dose: 2 mg Documented By: BERNICE Sennosides (Sennosides 8.6 Mg Tablet) 8.6 mg PO BID PRN PRN Reason: Constipation Vital Signs Vital signs: Vital Signs - 8 hr 06/17/22 00:00 06/17/22 00:00 06/17/22 00:30 Pulse Rate 55 L 52 L Respiratory Rate 29 H 13 Blood Pressure 153/73 H Pulse Oximetry 98 99 06/17/22 01:00 06/17/22 01:30 06/17/22 02:00 Pulse Rate 51 L 50 L Respiratory Rate 14 15 Blood Pressure 168/84 H Pulse Oximetry 98 98 06/17/22 02:00 06/17/22 02:30 06/17/22 03:00 Pulse Rate 51 L 51 L 63 Respiratory Rate 13 24 27 H Blood Pressure Pulse Oximetry 97 97 97 06/17/22 03:30 06/17/22 04:00 06/17/22 04:01 Pulse Rate 50 L 52 L 50 L Respiratory Rate 27 H 16 21 Blood Pressure Pulse Oximetry 97 96 97 06/17/22 04:01 06/17/22 04:30 06/17/22 05:00 Pulse Rate 54 L 56 L Respiratory Rate 21 21 Blood Pressure 151/72 H Pulse Oximetry 97 90 L 06/17/22 05:30 06/17/22 06:00 06/17/22 06:00 Pulse Rate 55 L 52 L Respiratory Rate 15 13 Blood Pressure 177/79 H Pulse Oximetry 99 98 06/17/22 06:30 Pulse Rate 50 L Respiratory Rate 18 Blood Pressure Pulse Oximetry 98 <Margot Murphy MD - Last Filed: 06/17/22 07:59> Orders Ordered: Discontinued Medications Acetaminophen (Acetaminophen 325 Mg Tablet) 650 mg PO Q6HR PRN PRN Reason: Fever/Mild Pain (1-3) Albuterol/Ipratropium (Albuterol/Ipratropium 3 Ml Ampul) 3 ml INH NOW ONE Stop: 06/16/22 20:31 Last Admin: 06/16/22 21:10 Dose: 3 ml Documented By: ZAFAR Amlodipine Besylate (Amlodipine 5 Mg Tablet) 5 mg PO DAILY [facility] Last Admin: 06/19/22 10:25 Dose: 5 mg Documented By: Admin: 06/18/22 08:58 Dose: 5 mg Documented By: BERNICE Aspirin (Aspirin Ec 81 Mg Tablet) 81 mg PO DAILY [facility] Last Admin: 06/17/22 12:56 Dose: Not Given Documented By: RL Atorvastatin Calcium (Atorvastatin 20 Mg Tablet) 40 mg PO BEDTIME [facility] Last Admin: 06/18/22 21:04 Dose: 40 mg Documented By: Admin: 06/17/22 20:33 Dose: 40 mg Documented By: RF Carvedilol (Carvedilol 3.125 Mg Tablet) 3.125 mg PO BID [facility] Last Admin: 06/17/22 14:02 Dose: Not Given Documented By: SUKHI Clopidogrel Bisulfate (Clopidogrel 75 Mg Tablet) 75 mg PO DAILY [facility] Last Admin: 06/19/22 10:25 Dose: 75 mg Documented By: Admin: 06/18/22 08:59 Dose: 75 mg Documented By: Admin: 06/17/22 13:01 Dose: 75 mg Documented By: BERNICE Furosemide (Furosemide 40 Mg/4 Ml Vial) 40 mg IV NOW ONE Stop: 06/16/22 22:41 Last Admin: 06/16/22 23:46 Dose: 40 mg Documented By: TEE Gabapentin (Gabapentin 300 Mg Capsule) 300 mg PO TID [facility] Last Admin: 06/17/22 11:51 Dose: 300 mg Documented By: SUKHI Gabapentin (Gabapentin 300 Mg Capsule) 300 mg PO TID [facility] Last Admin: 06/19/22 10:24 Dose: 300 mg Documented By: Admin: 06/18/22 21:04 Dose: 300 mg Documented By: Admin: 06/18/22 14:35 Dose: 300 mg Documented By: Admin: 06/18/22 08:57 Dose: 300 mg Documented By: Admin: 06/17/22 20:33 Dose: 300 mg Documented By: YODIT Heparin Sodium (Porcine) (Heparin 5,000 Unit/Ml Vial) 5,000 unit IV NOW ONE Stop: 06/16/22 22:41 Last Admin: 06/16/22 23:46 Dose: 5,000 unit Documented By: TEE Heparin Sodium/Dextrose (Heparin Drip) 25,000 unit in 500 mls @ 22.861 mls/hr IV [facility]; Protocol Last Admin: 06/17/22 00:02 Dose: Not Given Documented By: SUKHI(2) Heparin Sodium/Dextrose (Heparin Drip) 25,000 unit in 500 mls @ 20 mls/hr IV CONT [facility]; Protocol Stop: 06/18/22 23:59 Last Titration: 06/19/22 07:48 Dose: 750 unit/hr, 15 mls/hr Documented By: Admin: 06/18/22 08:21 Dose: 700 unit/hr, 14 mls/hr Documented By: Titration: 06/18/22 08:21 Dose: 700 unit/hr, 14 mls/hr Documented By: Titration: 06/17/22 07:46 Dose: 700 unit/hr, 14 mls/hr Documented By: Titration: 06/17/22 06:46 Dose: 0 unit/hr, 0 mls/hr Documented By: Titration: 06/17/22 06:46 Dose: 800 unit/hr, 16 mls/hr Documented By: Admin: 06/16/22 23:45 Dose: 1,000 unit/hr, 20 mls/hr Documented By: NR Lisinopril (Lisinopril 5 Mg Tablet) 5 mg PO DAILY [facility] Last Admin: 06/17/22 11:31 Dose: Not Given Documented By: RL Lisinopril (Lisinopril 5 Mg Tablet) 5 mg PO BEDTIME [facility] Last Admin: 06/18/22 21:04 Dose: 5 mg Documented By: Admin: 06/17/22 20:32 Dose: 5 mg Documented By: RF Metoprolol Succinate (Metoprolol Er 25 Mg Tablet) 25 mg PO BID [facility] Last Admin: 06/17/22 13:00 Dose: 25 mg Documented By: Admin: 06/17/22 11:31 Dose: Not Given Documented By: RL Metoprolol Succinate (Metoprolol Er 25 Mg Tablet) 25 mg PO DAILY [facility] Last Admin: 06/19/22 10:25 Dose: 25 mg Documented By: Admin: 06/18/22 08:57 Dose: 25 mg Documented By: Admin: 06/17/22 13:18 Dose: Not Given Documented By: BERNICE Alfuzosin 10 Mg Tablet Extended Release 24 Hr 10 mg PO DAILY [facility] Last Admin: 06/17/22 11:30 Dose: Not Given Documented By: RL Alfuzosin 10 Mg Tablet Extended Release 24 Hr 10 mg PO BEDTIME [facility] Last Admin: 06/18/22 21:05 Dose: 10 mg Documented By: Admin: 06/17/22 20:33 Dose: 10 mg Documented By: YODIT Netarsudil ( Rhopressa) 0.02% Ophthalmic Solution 1 each EYE-BOTH BEDTIME [facility] Last Admin: 06/18/22 21:06 Dose: 1 each Documented By: Admin: 06/17/22 20:38 Dose: 1 each Documented By: YODIT Paroxetine HCl (Paroxetine 20 Mg Tablet) 20 mg PO DAILY [facility] Last Admin: 06/19/22 10:28 Dose: 20 mg Documented By: Admin: 06/18/22 08:59 Dose: 20 mg Documented By: BERNICE Polyethylene Glycol (Polyethylene Glycol 3350 17 Gm Powd.Pack) 17 gm PO DAILY PRN PRN Reason: Constipation Prednisone (Prednisone 5 Mg Tablet) 15 mg PO DAILY [facility] Last Admin: 06/19/22 10:24 Dose: 15 mg Documented By: Admin: 06/18/22 17:25 Dose: 15 mg Documented By: BERNICE Prednisone (Prednisone 1 Mg Tablet) 2 mg PO DAILY [facility] Last Admin: 06/19/22 10:33 Dose: 2 mg Documented By: Admin: 06/18/22 17:26 Dose: 2 mg Documented By: BERNICE Sennosides (Sennosides 8.6 Mg Tablet) 8.6 mg PO BID PRN PRN Reason: Constipation Vital Signs Vital signs: Vital Signs - 8 hr 06/17/22 00:00 06/17/22 00:00 06/17/22 00:30 Pulse Rate 55 L 52 L Respiratory Rate 29 H 13 Blood Pressure 153/73 H Pulse Oximetry 98 99 06/17/22 01:00 06/17/22 01:30 06/17/22 02:00 Pulse Rate 51 L 50 L Respiratory Rate 14 15 Blood Pressure 168/84 H Pulse Oximetry 98 98 06/17/22 02:00 06/17/22 02:30 06/17/22 03:00 Pulse Rate 51 L 51 L 63 Respiratory Rate 13 24 27 H Blood Pressure Pulse Oximetry 97 97 97 06/17/22 03:30 06/17/22 04:00 06/17/22 04:01 Pulse Rate 50 L 52 L 50 L Respiratory Rate 27 H 16 21 Blood Pressure Pulse Oximetry 97 96 97 06/17/22 04:01 06/17/22 04:30 06/17/22 05:00 Pulse Rate 54 L 56 L Respiratory Rate 21 21 Blood Pressure 151/72 H Pulse Oximetry 97 90 L 06/17/22 05:30 06/17/22 06:00 06/17/22 06:00 Pulse Rate 55 L 52 L Respiratory Rate 15 13 Blood Pressure 177/79 H Pulse Oximetry 99 98 06/17/22 06:30 Pulse Rate 50 L Respiratory Rate 18 Blood Pressure Pulse Oximetry 98 MDM - Arrhythmia/Palpitations <Nadege Botnick, DO - Last Filed: 06/19/22 16:44> Lab Data Result diagrams: 06/16/22 19:00 06/16/22 19:30 Labs: Lab Results 06/16/22 06/16/22 06/16/22 Range/Units 19:00 19:30 19:30 WBC 7.5 (4.5-11.0) X10^3/uL RBC 4.52 (4.5-5.9) X10^6/uL Hgb 14.5 (13.5-17.5) g/dL Hct 41.5 (41-53) % MCV 91.7 (80-100) fL MCH 32.1 (26-34) PG MCHC 35.0 (30-36) % RDW 14.8 (11.6-14.8) % Plt Count 164 (150-400) X10^3/uL Neut % (Auto) 82.1 H (50-75) % Lymph % (Auto) 9.3 L (25-40) % Candler % (Auto) 7.8 (3-14) % Eos % (Auto) 0.4 L (2-4) % Baso % (Auto) 0.4 (0-2) % Neut # (Auto) 6200 (9462-2981) /uL Lymph # (Auto) 700 L (5652-2402) /uL Candler # (Auto) 600 (0-900) /uL Eos # (Auto) 0 (0-450) /uL Baso # (Auto) 0 (0-100) /uL APTT (26-36) SECONDS Sodium 132 L (137-145) mmol/L Potassium 4.2 (3.4-5.1) mmol/L Chloride 100 (98-107) mmol/L Carbon Dioxide 30 (22-32) mmol/L BUN 21 H (9-20) mg/dL Creatinine 1.21 (0.66-1.25) mg/dL Estimated GFR > 60 (>60) mL/min BUN/Creatinine Ratio 17.4 (6-22) Glucose 148 H (80-110) mg/dL Hemoglobin A1c (4.0-6.0) % Calcium 8.3 L (8.4-10.2) mg/dL Magnesium 2.2 (1.6-2.3) mg/dL Total Bilirubin 0.3 (0.2-1.3) mg/dL AST 24 (17-59) IU/L ALT 27 (<50) IU/L Alkaline Phosphatase 28 L (38-126) U/L Total Creatine Kinase 62 (55-170) U/L CK-MB (CK-2) TNP CK-MB (CK-2) Rel Index TNP Troponin I 0.128 H* (0.01-0.034) ng/mL NT-Pro-B Natriuret Pep 2040 H (<450) pg/mL Total Protein 5.9 L (6.3-8.2) g/dL Albumin 3.4 L (3.5-5.0) g/dL Globulin 2.5 (1.7-4.1) g/dL Albumin/Globulin Ratio 1.4 (1.0-2.8) Triglycerides (35-150) mg/dL Cholesterol (140-199) mg/dL LDL Cholesterol, Calc (<100) mg/dL HDL Cholesterol (40-60) mg/dL Lipase 60 (23-300) U/L TSH (0.47-4.68) uIU/mL Urine RBC (0-5/HPF) Urine WBC (0-5/HPF) Urine Bacteria (None) Ur Culture Indicated? SARS-CoV-2 (PCR) (Negative) 06/16/22 06/16/22 06/16/22 Range/Units 19:30 20:53 21:30 WBC (4.5-11.0) X10^3/uL RBC (4.5-5.9) X10^6/uL Hgb (13.5-17.5) g/dL Hct (41-53) % MCV (80-100) fL MCH (26-34) PG MCHC (30-36) % RDW (11.6-14.8) % Plt Count (150-400) X10^3/uL Neut % (Auto) (50-75) % Lymph % (Auto) (25-40) % Candler % (Auto) (3-14) % Eos % (Auto) (2-4) % Baso % (Auto) (0-2) % Neut # (Auto) (7157-6404) /uL Lymph # (Auto) (9225-4827) /uL Candler # (Auto) (0-900) /uL Eos # (Auto) (0-450) /uL Baso # (Auto) (0-100) /uL APTT (26-36) SECONDS Sodium (137-145) mmol/L Potassium (3.4-5.1) mmol/L Chloride (98-107) mmol/L Carbon Dioxide (22-32) mmol/L BUN (9-20) mg/dL Creatinine (0.66-1.25) mg/dL Estimated GFR (>60) mL/min BUN/Creatinine Ratio (6-22) Glucose (80-110) mg/dL Hemoglobin A1c (4.0-6.0) % Calcium (8.4-10.2) mg/dL Magnesium (1.6-2.3) mg/dL Total Bilirubin (0.2-1.3) mg/dL AST (17-59) IU/L ALT (<50) IU/L Alkaline Phosphatase (38-126) U/L Total Creatine Kinase (55-170) U/L CK-MB (CK-2) CK-MB (CK-2) Rel Index Troponin I 0.143 H* (0.01-0.034) ng/mL NT-Pro-B Natriuret Pep (<450) pg/mL Total Protein (6.3-8.2) g/dL Albumin (3.5-5.0) g/dL Globulin (1.7-4.1) g/dL Albumin/Globulin Ratio (1.0-2.8) Triglycerides (35-150) mg/dL Cholesterol (140-199) mg/dL LDL Cholesterol, Calc (<100) mg/dL HDL Cholesterol (40-60) mg/dL Lipase (23-300) U/L TSH 2.56 (0.47-4.68) uIU/mL Urine RBC None seen (0-5/HPF) Urine WBC None seen (0-5/HPF) Urine Bacteria None seen (None) Ur Culture Indicated? Cult not indicated SARS-CoV-2 (PCR) (Negative) 06/16/22 06/16/22 06/17/22 Range/Units 22:32 23:13 05:45 WBC (4.5-11.0) X10^3/uL RBC (4.5-5.9) X10^6/uL Hgb (13.5-17.5) g/dL Hct (41-53) % MCV (80-100) fL MCH (26-34) PG MCHC (30-36) % RDW (11.6-14.8) % Plt Count (150-400) X10^3/uL Neut % (Auto) (50-75) % Lymph % (Auto) (25-40) % Candler % (Auto) (3-14) % Eos % (Auto) (2-4) % Baso % (Auto) (0-2) % Neut # (Auto) (3111-8021) /uL Lymph # (Auto) (7483-0337) /uL Candler # (Auto) (0-900) /uL Eos # (Auto) (0-450) /uL Baso # (Auto) (0-100) /uL APTT 25 L (26-36) SECONDS Sodium (137-145) mmol/L Potassium (3.4-5.1) mmol/L Chloride (98-107) mmol/L Carbon Dioxide (22-32) mmol/L BUN (9-20) mg/dL Creatinine (0.66-1.25) mg/dL Estimated GFR (>60) mL/min BUN/Creatinine Ratio (6-22) Glucose (80-110) mg/dL Hemoglobin A1c (4.0-6.0) % Calcium (8.4-10.2) mg/dL Magnesium (1.6-2.3) mg/dL Total Bilirubin (0.2-1.3) mg/dL AST (17-59) IU/L ALT (<50) IU/L Alkaline Phosphatase (38-126) U/L Total Creatine Kinase (55-170) U/L CK-MB (CK-2) CK-MB (CK-2) Rel Index Troponin I 0.133 H* (0.01-0.034) ng/mL NT-Pro-B Natriuret Pep (<450) pg/mL Total Protein (6.3-8.2) g/dL Albumin (3.5-5.0) g/dL Globulin (1.7-4.1) g/dL Albumin/Globulin Ratio (1.0-2.8) Triglycerides (35-150) mg/dL Cholesterol (140-199) mg/dL LDL Cholesterol, Calc (<100) mg/dL HDL Cholesterol (40-60) mg/dL Lipase (23-300) U/L TSH (0.47-4.68) uIU/mL Urine RBC (0-5/HPF) Urine WBC (0-5/HPF) Urine Bacteria (None) Ur Culture Indicated? SARS-CoV-2 (PCR) Negative (Negative) 06/17/22 06/17/22 06/17/22 Range/Units 05:45 08:00 08:00 WBC (4.5-11.0) X10^3/uL RBC (4.5-5.9) X10^6/uL Hgb (13.5-17.5) g/dL Hct (41-53) % MCV (80-100) fL MCH (26-34) PG MCHC (30-36) % RDW (11.6-14.8) % Plt Count (150-400) X10^3/uL Neut % (Auto) (50-75) % Lymph % (Auto) (25-40) % [place] % (Auto) (3-14) % Eos % (Auto) (2-4) % Baso % (Auto) (0-2) % Neut # (Auto) (5702-1748) /uL Lymph # (Auto) (9683-9004) /uL [place] # (Auto) (0-900) /uL Eos # (Auto) (0-450) /uL Baso # (Auto) (0-100) /uL APTT 160 H* D (26-36) SECONDS Sodium (137-145) mmol/L Potassium (3.4-5.1) mmol/L Chloride (98-107) mmol/L Carbon Dioxide (22-32) mmol/L BUN (9-20) mg/dL Creatinine (0.66-1.25) mg/dL Estimated GFR (>60) mL/min BUN/Creatinine Ratio (6-22) Glucose (80-110) mg/dL Hemoglobin A1c 5.8 (4.0-6.0) % Calcium (8.4-10.2) mg/dL Magnesium (1.6-2.3) mg/dL Total Bilirubin (0.2-1.3) mg/dL AST (17-59) IU/L ALT (<50) IU/L Alkaline Phosphatase (38-126) U/L Total Creatine Kinase (55-170) U/L CK-MB (CK-2) CK-MB (CK-2) Rel Index Troponin I (0.01-0.034) ng/mL NT-Pro-B Natriuret Pep (<450) pg/mL Total Protein (6.3-8.2) g/dL Albumin (3.5-5.0) g/dL Globulin (1.7-4.1) g/dL Albumin/Globulin Ratio (1.0-2.8) Triglycerides 51 (35-150) mg/dL Cholesterol 151 (140-199) mg/dL LDL Cholesterol, Calc 67 (<100) mg/dL HDL Cholesterol 74 H (40-60) mg/dL Lipase (23-300) U/L TSH (0.47-4.68) uIU/mL Urine RBC (0-5/HPF) Urine WBC (0-5/HPF) Urine Bacteria (None) Ur Culture Indicated? SARS-CoV-2 (PCR) (Negative) Urine Dip Bedside Urine Glucose Negative Bedside Urine Bilirubin - Negative Bedside Urine Ketone - Negative Urine Specific [place] 1.015 Bedside Urine Occult Blood +/- Bedside Urine pH 6.0 Bedside Urine Protein - Negative Bedside Urine Urobilinogen - Negative Bedside Urine Nitrite - Negative Bedside Urine Leukocytes - Negative Esterase Imaging Data Chest x-ray: Radiologist's Impresson: XRay Report Signed Patient: Miller Estevez MR#: [id number] : 1945 Acct:[id number] Age/Sex: 76 / M Date of Service: 06/16/22 Loc: ED Accession Number: [id number] ?? Procedure: XR chest 1V Ordering Provider: Nadege Castillo D.O. PROCEDURE:? XR CHEST 1V ? INDICATIONS:? chest pain ? TECHNIQUE:? One view of the chest was acquired.? ? COMPARISON:? [facility], CHEST 2 VIEW, 12/30/2014, 9:53.? [facility], CHEST 2 VIEW, 01/17/2012, 8:34. ? FINDINGS:? ? Surgical changes and devices:? None.? ? Lungs and pleura:? Low lung volumes without dense consolidation or pleural effusion. ? Mediastinum:? Mediastinal contours appear normal.? Heart size is normal.? ? Bones and chest wall:? No suspicious bony lesions.? Overlying soft tissues appear unremarkable.? ? IMPRESSION:? No acute radiographic abnormality.? Low lung volumes. ? ? Dictated by: Alli Anne M.D. on 06/16/2022 at 19:20 ? ? ECG Data Interpretation: Normal sinus rhythm rate 70 p.r. interval 166 your S1 [address] changes MDM Narrative Medical decision making narrative: I suspect patient has had atrial fibrillation off and on for the past few days with the lightheadedness. This is likely causing his elevated troponin I do not see any EKG changes. Initially called double long in order to admit however requested repeat troponin. Actually did discuss case with Dr. Montenegro on-call allied health professional who did recommend stress test with elevated troponin and known CAD. Repeat trop 0.133. Spoke with Dr. Valle briefly about admitting he says he will get back to us. Signed out to Dr. Murphy Care is assumed. 76-year-old gentleman with a complaint of intermittent palpitations that likely is short episodes of congestive heart failure over the last number of days with increasing shortness of breath, orthopnea and cardiac wheeze. Clinical exam is consistent with congestive heart failure, BNP is elevated, troponin is elevated but appears to be trending down on the 3rd draw. He has had no pain blood pressures have been stable. At this point this is likely a diagnosis of new congestive heart failure likely rate related with smal l troponin leak. Need admission for further evaluation of new congestive heart failure with echocardiogram, mild diuresis and may need a nuclear medicine stress test prior to discharge home given the elevated troponin. [place] course would be transferring this gentleman to a facility that could do a heart catheterization if required and a stress test before Sunday however given critical bed status availability throughout [facility] that is not going to be an option. Likely will need at least a 2 night admission given the congestive heart failure and likely will not be appropriate to schedule nuclear medicine stress test until Sunday anyway. Care is reviewed with hospitalist and patient will be admitted to [facility] for further evaluation. Discussion with patient to clarify, answer questions and explain admission. Questions are answered and he is safe for transfer to the floor <Margot Murphy MD - Last Filed: 06/17/22 07:59> Lab Data Labs: Lab Results 09/06/16/22 06/16/22 Range/Units 19:00 19:30 19:30 WBC 7.5 (4.5-11.0) X10^3/uL RBC 4.52 (4.5-5.9) X10^6/uL Hgb 14.5 (13.5-17.5) g/dL Hct 41.5 (41-53) % MCV 91.7 (80-100) fL MCH 32.1 (26-34) PG MCHC 35.0 (30-36) % RDW 14.8 (11.6-14.8) % Plt Count 164 (150-400) X10^3/uL Neut % (Auto) 82.1 H (50-75) % Lymph % (Auto) 9.3 L (25-40) % [place] % (Auto) 7.8 (3-14) % Eos % (Auto) 0.4 L (2-4) % Baso % (Auto) 0.4 (0-2) % Neut # (Auto) 6200 (6208-5739) /uL Lymph # (Auto) 700 L (2463-4696) /uL Candler # (Auto) 600 (0-900) /uL Eos # (Auto) 0 (0-450) /uL Baso # (Auto) 0 (0-100) /uL APTT (26-36) SECONDS Sodium 132 L (137-145) mmol/L Potassium 4.2 (3.4-5.1) mmol/L Chloride 100 (98-107) mmol/L Carbon Dioxide 30 (22-32) mmol/L BUN 21 H (9-20) mg/dL Creatinine 1.21 (0.66-1.25) mg/dL Estimated GFR > 60 (>60) mL/min BUN/Creatinine Ratio 17.4 (6-22) Glucose 148 H (80-110) mg/dL Hemoglobin A1c (4.0-6.0) % Calcium 8.3 L (8.4-10.2) mg/dL Magnesium 2.2 (1.6-2.3) mg/dL Total Bilirubin 0.3 (0.2-1.3) mg/dL AST 24 (17-59) IU/L ALT 27 (<50) IU/L Alkaline Phosphatase 28 L (38-126) U/L Total Creatine Kinase 62 (55-170) U/L CK-MB (CK-2) TNP CK-MB (CK-2) Rel Index TNP Troponin I 0.128 H* (0.01-0.034) ng/mL NT-Pro-B Natriuret Pep 2040 H (<450) pg/mL Total Protein 5.9 L (6.3-8.2) g/dL Albumin 3.4 L (3.5-5.0) g/dL Globulin 2.5 (1.7-4.1) g/dL Albumin/Globulin Ratio 1.4 (1.0-2.8) Triglycerides (35-150) mg/dL Cholesterol (140-199) mg/dL LDL Cholesterol, Calc (<100) mg/dL HDL Cholesterol (40-60) mg/dL Lipase 60 (23-300) U/L TSH (0.47-4.68) uIU/mL Urine RBC (0-5/HPF) Urine WBC (0-5/HPF) Urine Bacteria (None) Ur Culture Indicated? SARS-CoV-2 (PCR) (Negative) 06/16/22 06/16/22 06/16/22 Range/Units 19:30 20:53 21:30 WBC (4.5-11.0) X10^3/uL RBC (4.5-5.9) X10^6/uL Hgb (13.5-17.5) g/dL Hct (41-53) % MCV (80-100) fL MCH (26-34) PG MCHC (30-36) % RDW (11.6-14.8) % Plt Count (150-400) X10^3/uL Neut % (Auto) (50-75) % Lymph % (Auto) (25-40) % Candler % (Auto) (3-14) % Eos % (Auto) (2-4) % Baso % (Auto) (0-2) % Neut # (Auto) (5258-6352) /uL Lymph # (Auto) (8524-6403) /uL Candler # (Auto) (0-900) /uL Eos # (Auto) (0-450) /uL Baso # (Auto) (0-100) /uL APTT (26-36) SECONDS Sodium (137-145) mmol/L Potassium (3.4-5.1) mmol/L Chloride (98-107) mmol/L Carbon Dioxide (22-32) mmol/L BUN (9-20) mg/dL Creatinine (0.66-1.25) mg/dL Estimated GFR (>60) mL/min BUN/Creatinine Ratio (6-22) Glucose (80-110) mg/dL Hemoglobin A1c (4.0-6.0) % Calcium (8.4-10.2) mg/dL Magnesium (1.6-2.3) mg/dL Total Bilirubin (0.2-1.3) mg/dL AST (17-59) IU/L ALT (<50) IU/L Alkaline Phosphatase (38-126) U/L Total Creatine Kinase (55-170) U/L CK-MB (CK-2) CK-MB (CK-2) Rel Index Troponin I 0.143 H* (0.01-0.034) ng/mL NT-Pro-B Natriuret Pep (<450) pg/mL Total Protein (6.3-8.2) g/dL Albumin (3.5-5.0) g/dL Globulin (1.7-4.1) g/dL Albumin/Globulin Ratio (1.0-2.8) Triglycerides (35-150) mg/dL Cholesterol (140-199) mg/dL LDL Cholesterol, Calc (<100) mg/dL HDL Cholesterol (40-60) mg/dL Lipase (23-300) U/L TSH 2.56 (0.47-4.68) uIU/mL Urine RBC None seen (0-5/HPF) Urine WBC None seen (0-5/HPF) Urine Bacteria None seen (None) Ur Culture Indicated? Cult not indicated SARS-CoV-2 (PCR) (Negative) 06/16/22 06/16/22 06/17/22 Range/Units 22:32 23:13 05:45 WBC (4.5-11.0) X10^3/uL RBC (4.5-5.9) X10^6/uL Hgb (13.5-17.5) g/dL Hct (41-53) % MCV (80-100) fL MCH (26-34) PG MCHC (30-36) % RDW (11.6-14.8) % Plt Count (150-400) X10^3/uL Neut % (Auto) (50-75) % Lymph % (Auto) (25-40) % Candler % (Auto) (3-14) % Eos % (Auto) (2-4) % Baso % (Auto) (0-2) % Neut # (Auto) (3200-2195) /uL Lymph # (Auto) (9442-4034) /uL Candler # (Auto) (0-900) /uL Eos # (Auto) (0-450) /uL Baso # (Auto) (0-100) /uL APTT 25 L (26-36) SECONDS Sodium (137-145) mmol/L Potassium (3.4-5.1) mmol/L Chloride (98-107) mmol/L Carbon Dioxide (22-32) mmol/L BUN (9-20) mg/dL Creatinine (0.66-1.25) mg/dL Estimated GFR (>60) mL/min BUN/Creatinine Ratio (6-22) Glucose (80-110) mg/dL Hemoglobin A1c (4.0-6.0) % Calcium (8.4-10.2) mg/dL Magnesium (1.6-2.3) mg/dL Total Bilirubin (0.2-1.3) mg/dL AST (17-59) IU/L ALT (<50) IU/L Alkaline Phosphatase (38-126) U/L Total Creatine Kinase (55-170) U/L CK-MB (CK-2) CK-MB (CK-2) Rel Index Troponin I 0.133 H* (0.01-0.034) ng/mL NT-Pro-B Natriuret Pep (<450) pg/mL Total Protein (6.3-8.2) g/dL Albumin (3.5-5.0) g/dL Globulin (1.7-4.1) g/dL Albumin/Globulin Ratio (1.0-2.8) Triglycerides (35-150) mg/dL Cholesterol (140-199) mg/dL LDL Cholesterol, Calc (<100) mg/dL HDL Cholesterol (40-60) mg/dL Lipase (23-300) U/L TSH (0.47-4.68) uIU/mL Urine RBC (0-5/HPF) Urine WBC (0-5/HPF) Urine Bacteria (None) Ur Culture Indicated? SARS-CoV-2 (PCR) Negative (Negative) 06/17/22 06/17/22 06/17/22 Range/Units 05:45 08:00 08:00 WBC (4.5-11.0) X10^3/uL RBC (4.5-5.9) X10^6/uL Hgb (13.5-17.5) g/dL Hct (41-53) % MCV (80-100) fL MCH (26-34) PG MCHC (30-36) % RDW (11.6-14.8) % Plt Count (150-400) X10^3/uL Neut % (Auto) (50-75) % Lymph % (Auto) (25-40) % Candler % (Auto) (3-14) % Eos % (Auto) (2-4) % Baso % (Auto) (0-2) % Neut # (Auto) (8091-9709) /uL Lymph # (Auto) (6687-7540) /uL Candler # (Auto) (0-900) /uL Eos # (Auto) (0-450) /uL Baso # (Auto) (0-100) /uL APTT 160 H* D (26-36) SECONDS Sodium (137-145) mmol/L Potassium (3.4-5.1) mmol/L Chloride (98-107) mmol/L Carbon Dioxide (22-32) mmol/L BUN (9-20) mg/dL Creatinine (0.66-1.25) mg/dL Estimated GFR (>60) mL/min BUN/Creatinine Ratio (6-22) Glucose (80-110) mg/dL Hemoglobin A1c 5.8 (4.0-6.0) % Calcium (8.4-10.2) mg/dL Magnesium (1.6-2.3) mg/dL Total Bilirubin (0.2-1.3) mg/dL AST (17-59) IU/L ALT (<50) IU/L Alkaline Phosphatase (38-126) U/L Total Creatine Kinase (55-170) U/L CK-MB (CK-2) CK-MB (CK-2) Rel Index Troponin I (0.01-0.034) ng/mL NT-Pro-B Natriuret Pep (<450) pg/mL Total Protein (6.3-8.2) g/dL Albumin (3.5-5.0) g/dL Globulin (1.7-4.1) g/dL Albumin/Globulin Ratio (1.0-2.8) Triglycerides 51 (35-150) mg/dL Cholesterol 151 (140-199) mg/dL LDL Cholesterol, Calc 67 (<100) mg/dL HDL Cholesterol 74 H (40-60) mg/dL Lipase (23-300) U/L TSH (0.47-4.68) uIU/mL Urine RBC (0-5/HPF) Urine WBC (0-5/HPF) Urine Bacteria (None) Ur Culture Indicated? SARS-CoV-2 (PCR) (Negative) Urine Dip Bedside Urine Glucose Negative Bedside Urine Bilirubin - Negative Bedside Urine Ketone - Negative Urine Specific [place] 1.015 Bedside Urine Occult Blood +/- Bedside Urine pH 6.0 Bedside Urine Protein - Negative Bedside Urine Urobilinogen - Negative Bedside Urine Nitrite - Negative Bedside Urine Leukocytes - Negative Esterase MDM Narrative Medical decision making narrative: I suspect patient has had atrial fibrillation off and on for the past few days with the lightheadedness. This is likely causing his elevated troponin I do not see any EKG changes. Care is assumed. 76-year-old gentleman with a complaint of intermittent palpitations that likely is short episodes of congestive heart failure over the last number of days with increasing shortness of breath, orthopnea and cardiac wheeze. Clinical exam is consistent with congestive heart failure, BNP is elevated, troponin is elevated but appears to be trending down on the 3rd draw. He has had no pain blood pressures have been stable. At this point this is likely a diagnosis of new congestive heart failure likely rate related with small troponin leak. Need admission for further evaluation of new congestive heart failure with echocardiogram, mild diuresis and may need a nuclear medicine stress test prior to discharge home given the elevated troponin. [place] course would be transferring this gentleman to a facility that could do a heart catheterization if required and a stress test before Sunday however given critical bed status availability throughout [facility] that is not going to be an option. Likely will need at least a 2 night admission given the congestive heart failure and likely will not be appropriate to schedule nuclear medicine stress test until Sunday anyway. Care is reviewed with hospitalist and patient will be admitted to [facility] for further evaluation. Discussion with patient to clarify, answer questions and explain admission. Questions are answered and he is safe for transfer to the floor Discharge Plan Departure Patient Disposition: Admitted As Inpatient Clinical Impression: Elevated troponin, AF (paroxysmal atrial fibrillation), Abnormal CT scan, lung Acute CHF (congestive heart failure) Qualifiers: Heart failure type: unspecified Qualified Code(s): I50.9 - Heart failure, unspecified Admit Date/Time: 06/17/22 09:32 Admit Provider: Aakash Valle
[2022-06-16 20:19] LABS: Troponin I 0.128 ng/mL (0.01-0.034)
--- NOTE | 2022-06-16 20:30 | DI.CT.S_ITS ---
PROCEDURE: CT ANGIO CHEST PE PROTOCOL INDICATIONS: new onset afib with sob TECHNIQUE: After the administration of intravenous contrast, 2 mm thick sections acquired from the pulmonary apices to the posterior costophrenic angles. 3-dimensional maximum intensity projection (MIP) coronal and sagittal reformats were then acquired through the thorax. For radiation dose reduction, the following was used: automated exposure control, adjustment of mA and/or kV according to patient size. COMPARISON: [facility], CT, CT ANGIO AORTA RUNOFF, 04/12/2018, 11:01. [facility], CR, XR CHEST 1V, 06/16/2022, 18:48. FINDINGS: Image quality: Excellent. Pulmonary arteries: Pulmonary arteries are normal in size, and demonstrate no intraluminal filling defects to suggest central pulmonary embolism. Lower Neck: No lymphadenopathy by size criteria. Thyroid: Visualized thyroid demonstrates no discrete nodules. Axillae: No lymphadenopathy by size criteria. Chest Wall: Unremarkable. Bones: Visualized osseous structures demonstrate no suspicious lesions. Lungs and Airways: No acute consolidation. There is mild dependent atelectasis and scarring bilaterally. Within the right middle lobe, there is a pulmonary nodule with irregular margins measuring up to 0.7 cm on series 5, image 166. This extends to the major fissure. A nearby right middle lobe nodule adjacent to the right hilum measuring up to 0.6 cm on series 5, image 165 is also noted. Within the left upper lobe, there is an irregular ground-glass nodule measuring up to 0.8 cm on series 5, image 111. The trachea and central airways are patent. Pleura: No pneumothorax or pleural effusions. Heart: Heart size is at the upper limits of normal.. No pericardial effusion. Thoracic Vessels: The thoracic aorta is normal in size. Mediastinum and Lisa: No lymphadenopathy by size criteria. Esophagus: No wall thickening. No hiatal hernia. Abdomen: Visualized upper abdominal solid organs appear normal in the early arterial phase of enhancement. IMPRESSION: 1. No evidence of pulmonary embolism. 2. No acute airspace consolidation. 3. Right middle lobe irregular nodules measuring up to 0.7 cm. The findings are nonspecific but a neoplasm cannot be excluded. Recommend a follow-up chest CT in 6 months to demonstrate stability if clinically indicated. 4. Indistinct ground-glass nodule in the left upper lobe is also nonspecific but the differential also includes a neoplastic process. Recommend attention on follow-up. Dictated by: Hollis Miller M.D. on 06/16/2022 at 21:45 Approved by: Hollis Miller M.D. on 06/16/2022 at 21:52
[2022-06-16 20:59] LABS: NT-proBNP (BNP-Adult 18+) 2040 pg/mL (<450)
[2022-06-16] MEDS: ALBUTEROL/IPRATROPIUM 3 ML AMPUL INH (21:10)
[2022-06-16 21:22] LABS: Thyroid Stimulating Hormone 2.56 uIU/mL (0.47-4.68)
[2022-06-16 22:03] LABS: Troponin I 0.143 ng/mL (0.01-0.034)
[2022-06-16 22:16] LABS: Bacteria Urine None Seen; Culture Indicated Urine Cult Not Indicated; RBC Urine None Seen (0-5/HPF); WBC Urine None Seen (0-5/HPF)
[2022-06-16 23:00] LABS: COVID19 -Nasal RAPID Negative (Negative)
[2022-06-16 23:34] LABS: PTT Partial Thromboplastin Tim 25 SECONDS (26-36)
[2022-06-16] MEDS: HEPARIN DRIP 25,000 UNIT/500 ML IV.SOLN 20 UNIT IV (23:45)
[2022-06-16] MEDS: HEPARIN 5,000 UNIT/ML VIAL 5000 UNIT IV (23:46)
[2022-06-16] MEDS: FUROSEMIDE 40 MG/4 ML VIAL IV (23:46)
[2022-06-17] VITALS (27 sets, daily range): BP systolic 130–188; BP diastolic 60–86; PULSE 48–63; RESP 11–29; TEMP 36.6; O2SAT 90–100; BMI 28.7
--- NOTE | 2022-06-17 01:24 | DI.ECHO.S_ITS ---
[facility] +---------+ : : [address] : : : : [id number] : : : : Phone: [phone]---------+ Echocardiogram Report + + :Name: MELISSA WYATT Study Date: 06/17/2022 Height: 71 in : :[facility] ReadingLocation: Weight: 210 lb : : Gender: Male BSA: 2.2 m2 : :: 1945 Age: 76 yrs BP: 177/79 mmHg: :Reason For Study: ATRIAL FIBRILLATION : :Ordering Physician: FLORES, : :DONNA Performed By: Gwen Prado : :Referring: DONNA TANNER : + + Interpretation Summary The ejection fraction is estimated to be 45-50%. Grade I diastolic dysfunction. The right ventricle is normal size. Right ventricular systolic function is at the lower limits of normal. No significant valvular abnormalities. Unable to estimate PASP. Compared to the prior study dated 01/14/2015, there is a mild decrease in ejection fraction. Procedure: A two-dimensional transthoracic echocardiogram with color flow and Doppler was performed. The study quality was technically adequate. Comparison is made with the echocardiogram of 01/19/2021. The patient was in sinus bradycardia with heart rates between 54 bpm during the exam. Left Ventricle: The left ventricle is normal in size. There is mild-moderate concentric left ventricular hypertrophy. The ejection fraction is estimated to be 45-50%. Diastolic parameters suggest a relaxation abnormality of the left ventricle, consistent with probable normal filling pressures. Right Ventricle: The right ventricle is normal size. Right ventricular systolic function is at the lower limits of normal. Atria: The left atrial size is normal. Right atrial size is normal. There is no Doppler evidence for an interatrial shunt. Mitral Valve: The mitral valve is normal in structure and function. There is trace mitral regurgitation. Aortic Valve: The aortic valve is trileaflet. The aortic valve opens well. There is no aortic valve stenosis. No aortic regurgitation is present. Tricuspid Valve: The tricuspid valve is normal in structure and function. There is trace tricuspid regurgitation. Pulmonary artery pressures cannot be estimated because of the lack of a measurable TR jet velocity. Pulmonic Valve: The pulmonic valve leaflets are thin and pliable; valve motion is normal. There is mild pulmonic regurgitation. Great Vessels: The aortic root is normal size. The dimensions of the ascending aorta are normal. The IVC is of normal diameter and collapses greater than 50% with a sniff. This suggests a low right atrial pressure of 3 mm Hg. Pericardium/ Pleura There is no pericardial effusion. There is no pleural effusion. MMode/2D Measurements & Calculations LVIDd: 4.7 cm LVOT diam: 2.2 cm LVIDs: 3.8 cm Ao root diam: 3.7 cm FS: 19.2 % asc Aorta Diam: 3.1 cm IVSd: 1.4 cm Ao Arch Diam (Prox Trans): 3.5 cm LVPWd: 1.3 cm LV roman. diameter/BSA (cm/m^2): 2.2 LV sys. diameter/BSA (cm/m^2): 1.8 LA A2 area: 20.9 cm2 RA long axis: 4.7 cm LA A4 area: 17.6 cm2 RA area: 16.5 cm2 LA length (vol): 5.0 cm RA vol: 49.0 ml LA vol: 62.7 ml RA : 22.7 ml/m2 LA vol index: 29.1 ml/m2 IVC diam: 0.97 cm RVD1 (basal): 3.8 cm TAPSE: 1.6 cm Doppler Measurements & Calculations Ao V2 max: 110.9 cm/sec LVOT Max Socrates: 85.8 cm/sec Ao V2 mean: 74.9 cm/sec LV V1 max P.9 mmHg Ao max P.9 mmHg LV V1 VTI: 19.6 cm Ao mean P.6 mmHg MARLENY(I,D): 3.0 cm2 Ao V2 VTI: 24.2 cm MARLENY(V,D): 2.8 cm2 sev ratio: 0.81 MARLENY indexed to BSA (cm^2/m^2): 1.4 MV E max socrates: 50.0 cm/sec PA V2 max: 80.4 cm/sec MV A max socrates: 61.5 cm/sec PA V2 mean: 54.5 cm/sec MV E/A: 0.81 PA mean P.3 mmHg Med Peak E' Socrates: 5.6 cm/sec PA pr(Accel): 41.3 mmHg E/E' med: 8.9 Lat Peak E' Socrates: 6.4 cm/sec E/E' lat: 7.9 E/e' average: 8.4 MV dec time: 0.32 sec [facility] 71.9 ml Reading Physician:04:01 PM
[2022-06-17 06:35] LABS: Troponin I 0.133 ng/mL (0.01-0.034)
[2022-06-17 06:40] LABS: PTT Partial Thromboplastin Tim 160 SECONDS (26-36)
--- NOTE | 2022-06-17 07:59 | PM.HP.1 ---
History of Present Illness History of Present Illness Date Patient Seen: 06/17/22 Time Patient Seen: 13:04 Chief complaint: lighthead/bp high/thinks afib hx stroke Narrative: Korin Estevez is a 76yo M with PMH of CAD s/p SARAH to RCA in 2014 on plavix, carotid stenosis, CVA, PVD with claudication, HTN, HLD, former tobacco dependence, BPH, PMR, and DAWIT who presents with lightheadedness and fatigue. Patient notes he suddenly felt lightheaded the past few days. Then earlier today he noticed it again so put on his 's apple watch which said he was in A-fib wiht HR 140-150's. Therefore he came to the ED. No chest pain. Once in the ED he was in SR with HR 50's. Troponin was 0.128 and increased to 0.143. Dr. Montenegro cardiology at [facility] contacted who said likely troponin elevated from demand ischemia due to A-fib RVR and to put on heparin drip and admit for stress test. Patient says he is followed by his printing press operator Dr. Costa at [facility] and has no history of A-fib. He has DAWIT but cannot tolerate CPAP due to having to go to the bathroom at night 5-6x nightly. He drinks 2-3 alcohol beverages per day and this past week sunday he drank a large amount of red wine with a friend. He quit smoking in 2003. He denies NV, abd pain, jaw pain, dysuria or diarrhea. Patient History Medical History Anxiety disorder, unspecified (09/14/15) Arm paresthesia, left Bilateral lower extremity edema BPH w urinary obs/LUTS (07/05/02) Carotid stenosis Chronic anticoagulation Claudication in peripheral vascular disease Coronary artery disease Degenerative joint disease (03/29/11) OSBORN (dyspnea on exertion) Elevated PSA History of adenomatous polyp of colon (~2010) History of tobacco use Hypertension, essential (07/05/02) Left leg paresthesias Lymphocytic colitis Myalgia Myalgia due to statin Nocturia associated with benign prostatic hyperplasia Peripheral vascular disease Peyronie's disease (11/17/03) PMR (polymyalgia rheumatica) Presence of stent in right coronary artery Right buttock pain Status post CVA Urinary urgency Wheezing Surgical History Status post angioplasty with stent Status post hernia repair Family & Social History Family History Father Colon cancer Social History: household members spouse Safety & Behavioral: Feels Safe in Current Yes Environment Been Physically Hurt or No Threatened By a Person Tobacco & Substance use: Smoking Status Former smoker alcohol intake current alcohol intake frequency 0-2 drinks per day Substance Use Type does not use Meds Home Medications and Allergies Home Medications Medication Instructions Recorded Confirmed Type clopidogrel 75 mg tablet (Plavix) 75 mg PO DAILY 05/07/20 06/17/22 History lisinopril 5 mg tablet 5 mg PO DAILY 05/07/20 06/17/22 History amlodipine 5 mg tablet 5 mg PO DAILY 03/02/21 06/17/22 History gabapentin 300 mg capsule 300 mg PO TID 03/02/21 06/17/22 History paroxetine HCl 20 mg tablet 20 mg PO DAILY 04/19/21 06/17/22 History alfuzosin 10 mg tablet,extended 10 mg PO DAILY 01/02/22 06/17/22 History release 24 hr handicap placard #1 ea 01/04/22 04/19/22 Rx metoprolol succinate 25 mg 25 mg PO DAILY 01/05/22 06/17/22 History tablet,extended release 24 hr netarsudil 0.02 % eye drops 1 drp EYE-RIGHT BEDTIME 01/05/22 06/17/22 History (Rhopressa) albuterol sulfate 90 mcg/actuation 2 puff inhalation Q6H PRN 06/16/22 06/17/22 Rx aerosol inhaler (ProAir HFA) shortness of breath or wheezing #6.7 grams amlodipine 5 mg PO DAILY 06/17/22 06/17/22 History paroxetine HCl 20 mg PO DAILY 06/17/22 06/17/22 History prednisone 17 mg PO DAILY 06/17/22 06/17/22 History Allergies Allergy/AdvReac Type Severity Reaction Status Date / Time No Known Drug Allergies Allergy Verified 04/19/22 09:40 Review of Systems Review of Systems Narrative: All other systems reviewed with the patient and are negative unless otherwise stated. Exam Vital Signs (past 8 hours): - 06/17/22 00:00 06/17/22 00:00 06/17/22 00:30 Pulse Rate 55 L 52 L Respiratory Rate 29 H 13 Blood Pressure 153/73 H Pulse Oximetry 98 99 06/17/22 01:00 06/17/22 01:30 06/17/22 02:00 Pulse Rate 51 L 50 L Respiratory Rate 14 15 Blood Pressure 168/84 H Pulse Oximetry 98 98 06/17/22 02:00 06/17/22 02:30 06/17/22 03:00 Pulse Rate 51 L 51 L 63 Respiratory Rate 13 24 27 H Blood Pressure Pulse Oximetry 97 97 97 06/17/22 03:30 06/17/22 04:00 06/17/22 04:01 Pulse Rate 50 L 52 L 50 L Respiratory Rate 27 H 16 21 Blood Pressure Pulse Oximetry 97 96 97 06/17/22 04:01 06/17/22 04:30 06/17/22 05:00 Pulse Rate 54 L 56 L Respiratory Rate 21 21 Blood Pressure 151/72 H Pulse Oximetry 97 90 L 06/17/22 05:30 06/17/22 06:00 06/17/22 06:00 Pulse Rate 55 L 52 L Respiratory Rate 15 13 Blood Pressure 177/79 H Pulse Oximetry 99 98 06/17/22 06:30 Pulse Rate 50 L Respiratory Rate 18 Blood Pressure Pulse Oximetry 98 Oxygen Delivery Method Room Air Narrative Exam Narrative: GEN: no acute distress HEENT: moist mucous membranes, PERRL NECK: trachea midline, no JVD CV: Bradycardic rate and normal rhythm, no murmurs PULM: clear bilaterally ABD: soft, nontender, nondistended, no organomegaly EXT: warm and well perfused with 1+ edema of left lower extremity NEURO: awake, alert, oriented, no focal deficits Objective Labs Result Diagrams: 06/16/22 19:00 06/16/22 19:30 Labs: Laboratory Results - last 24 hr 06/16/22 06/16/22 06/16/22 19:00 19:30 19:30 WBC 7.5 RBC 4.52 Hgb 14.5 Hct 41.5 MCV 91.7 MCH 32.1 MCHC 35.0 RDW 14.8 Plt Count 164 Neut % (Auto) 82.1 H Lymph % (Auto) 9.3 L [place] % (Auto) 7.8 Eos % (Auto) 0.4 L Baso % (Auto) 0.4 Neut # (Auto) 6200 Lymph # (Auto) 700 L [place] # (Auto) 600 Eos # (Auto) 0 Baso # (Auto) 0 APTT Sodium 132 L Potassium 4.2 Chloride 100 Carbon Dioxide 30 BUN 21 H Creatinine 1.21 Estimated GFR > 60 BUN/Creatinine Ratio 17.4 Glucose 148 H Calcium 8.3 L Magnesium 2.2 Total Bilirubin 0.3 AST 24 ALT 27 Alkaline Phosphatase 28 L Total Creatine Kinase 62 CK-MB (CK-2) TNP CK-MB (CK-2) Rel Index TNP Troponin I 0.128 H* NT-Pro-B Natriuret Pep 2040 H Total Protein 5.9 L Albumin 3.4 L Globulin 2.5 Albumin/Globulin Ratio 1.4 Lipase 60 TSH Urine RBC Urine WBC Urine Bacteria Ur Culture Indicated? SARS-CoV-2 (PCR) 06/16/22 06/16/22 06/16/22 19:30 20:53 21:30 WBC RBC Hgb Hct MCV MCH MCHC RDW Plt Count Neut % (Auto) Lymph % (Auto) [place] % (Auto) Eos % (Auto) Baso % (Auto) Neut # (Auto) Lymph # (Auto) [place] # (Auto) Eos # (Auto) Baso # (Auto) APTT Sodium Potassium Chloride Carbon Dioxide BUN Creatinine Estimated GFR BUN/Creatinine Ratio Glucose Calcium Magnesium Total Bilirubin AST ALT Alkaline Phosphatase Total Creatine Kinase CK-MB (CK-2) CK-MB (CK-2) Rel Index Troponin I 0.143 H* NT-Pro-B Natriuret Pep Total Protein Albumin Globulin Albumin/Globulin Ratio Lipase TSH 2.56 Urine RBC None seen Urine WBC None seen Urine Bacteria None seen Ur Culture Indicated? Cult not indicated SARS-CoV-2 (PCR) 06/16/22 06/16/22 06/17/22 22:32 23:13 05:45 WBC RBC Hgb Hct MCV MCH MCHC RDW Plt Count Neut % (Auto) Lymph % (Auto) [place] % (Auto) Eos % (Auto) Baso % (Auto) Neut # (Auto) Lymph # (Auto) [place] # (Auto) Eos # (Auto) Baso # (Auto) APTT 25 L Sodium Potassium Chloride Carbon Dioxide BUN Creatinine Estimated GFR BUN/Creatinine Ratio Glucose Calcium Magnesium Total Bilirubin AST ALT Alkaline Phosphatase Total Creatine Kinase CK-MB (CK-2) CK-MB (CK-2) Rel Index Troponin I 0.133 H* NT-Pro-B Natriuret Pep Total Protein Albumin Globulin Albumin/Globulin Ratio Lipase TSH Urine RBC Urine WBC Urine Bacteria Ur Culture Indicated? SARS-CoV-2 (PCR) Negative 06/17/22 05:45 WBC RBC Hgb Hct MCV MCH MCHC RDW Plt Count Neut % (Auto) Lymph % (Auto) [place] % (Auto) Eos % (Auto) Baso % (Auto) Neut # (Auto) Lymph # (Auto) [place] # (Auto) Eos # (Auto) Baso # (Auto) APTT 160 H* D Sodium Potassium Chloride Carbon Dioxide BUN Creatinine Estimated GFR BUN/Creatinine Ratio Glucose Calcium Magnesium Total Bilirubin AST ALT Alkaline Phosphatase Total Creatine Kinase CK-MB (CK-2) CK-MB (CK-2) Rel Index Troponin I NT-Pro-B Natriuret Pep Total Protein Albumin Globulin Albumin/Globulin Ratio Lipase TSH Urine RBC Urine WBC Urine Bacteria Ur Culture Indicated? SARS-CoV-2 (PCR) Assessment & Plan Assessment & Plan narrative: # acute new-onset atrial fibrillation -seen on patient's Apple watch at home showing A-fib with rate of 144-154, once in ED patient in sinus rhythm on EKG -HR currently 50's and sinus -he takes 1/4 a pill of metoprolol 25 XL daily, will increase to 25mg daily, hold if HR persistently in 40's -continue heparin drip -will need to consider DOAC on discharge -continue telemetry -obtain echo # possible acute CHF exacerbation -BNP elevated at 2039, mild lower extremity edema -echo ordered # elevated troponin likely secondary to demand ischemia from AFib RVR -trop 0.128 on arrival to ED, patient denies any chest pain -likely troponin leak due to A-fib -peaked at 0.143 and came down to 0.133 -continue heparin drip x48 hours and trend troponin -cardiology at [facility] contacted who recommended stress test so nuclear medicine stress test ordered for Tuesday 06/19 -continue Plavix, hold aspirin as patient said this was stopped by his printing press operator # right middle lobe irregular nodules measuring 0.7cm -seen on CTA, neoplasm cannot be excluded and patient with smoking history -will need outpatient repeat CT follow-up in 6 months # PVD with claudication -continue home Plavix # hypertension -continue home lisinopril and amlodipine # untreated sleep apnea -patient unable to tolerate CPAP which is likely contributing to his AFib # polymyalgia rheumatica -previously on prednisone # depression -continue home Paxil Code status is full code. COVID negative. DVT prophylaxis with heparin drip. Proxy is Clari. I have reviewed home meds and used all available resources to reconcile the home meds. Time Spent With Patient Critical Care time: I spent a total of [] minutes of critical care time on this patient's care today; this time is exclusive of procedural time.
[2022-06-17 08:10] LABS: Cholesterol 151 mg/dL (140-199); HDL Cholesterol 74 mg/dL (40-60); LDL Cholesterol Calculated 67 mg/dL (<100); Triglycerides 51 mg/dL (35-150)
[2022-06-17 08:12] LABS: Hemoglobin A1C% w Est Avg Glu 5.8 % (4.0-6.0)
[2022-06-17] MEDS: GABAPENTIN 300 MG CAPSULE PO ×2 (11:51→20:33)
[2022-06-17 12:56] LABS: Troponin I 0.114 ng/mL (0.01-0.034)
[2022-06-17] MEDS: METOPROLOL ER 25 MG TABLET PO (13:00)
[2022-06-17] MEDS: CLOPIDOGREL 75 MG TABLET PO (13:01)
[2022-06-17 13:12] LABS: PTT Partial Thromboplastin Tim 55 SECONDS (26-36)
[2022-06-17 18:26] LABS: Troponin I 0.114 ng/mL (0.01-0.034)
--- NOTE | 2022-06-17 19:20 | PC.NURSE ---
Pt admitted from ED ~1000. AAOx4, MORENO, FC, no c/o pain. OOB independently. Sinus eduin, 50s. BP stable. Afebrile. Heparin gtt infusing, cardiac protocol, therapeutic range. ECHO completed today. Room air, no desats. Heart healthy diet. AUOP.
[2022-06-17] MEDS: lisinopriL 5 MG TABLET PO (20:32)
[2022-06-17] MEDS: ATORVASTATIN 20 MG TABLET 40 MG PO (20:33)
[2022-06-17] MEDS: Alfuzosin 10 mg tablet extended release 24 hr 10 EACH PO (20:33)
[2022-06-17] MEDS: NETARSUDIL 0.02% 1 EACH EYE-BOTH (20:38)
[2022-06-18] VITALS (10 sets, daily range): BP systolic 97–163; BP diastolic 57–89; PULSE 52–76; RESP 15–20; TEMP 36.4–36.7; O2SAT 97–98
[2022-06-18 06:44] LABS: PTT Partial Thromboplastin Tim 54 SECONDS (26-36)
--- NOTE | 2022-06-18 07:58 | PM.PN.1 ---
Subjective Subjective Date Patient Seen: 06/18/22 Time Patient Seen: 15:00 Interval history: Patient feeling well and no complaints. Exam Vital Signs (past 8 hours): - 06/18/22 00:00 06/18/22 04:00 06/18/22 06:00 Temperature 97.9 F 98.0 F Pulse Rate 58 L 58 L Respiratory Rate 19 17 20 Blood Pressure 162/89 H 151/77 H Pulse Oximetry 98 98 Oxygen Delivery Method Room Air Oxygen Flow Rate 0 Narrative Exam Narrative: GEN: no acute distress HEENT: moist mucous membranes, PERRL NECK: trachea midline, no JVD CV: Bradycardic rate and normal rhythm, no murmurs PULM: clear bilaterally ABD: soft, nontender, nondistended, no organomegaly EXT: warm and well perfused with 1+ edema of left lower extremity NEURO: awake, alert, oriented, no focal deficits Objective Labs Result Diagrams: 06/16/22 19:00 06/16/22 19:30 Labs: Laboratory Results - last 24 hr 06/17/22 06/17/22 06/17/22 08:00 08:00 10:15 APTT Hemoglobin A1c 5.8 Troponin I Triglycerides 51 Cholesterol 151 LDL Cholesterol, Calc 67 HDL Cholesterol 74 H Nasal Screen MRSA (PCR) Negative for mrsa 06/17/22 06/17/22 06/17/22 12:02 12:02 17:55 APTT 55 H D Hemoglobin A1c Troponin I 0.114 H 0.114 H Triglycerides Cholesterol LDL Cholesterol, Calc HDL Cholesterol Nasal Screen MRSA (PCR) 06/18/22 06:28 APTT 54 H Hemoglobin A1c Troponin I Triglycerides Cholesterol LDL Cholesterol, Calc HDL Cholesterol Nasal Screen MRSA (PCR) [facility] Medical History Anxiety disorder, unspecified (09/14/15) Arm paresthesia, left Bilateral lower extremity edema BPH w urinary obs/LUTS (07/05/02) Carotid stenosis Chronic anticoagulation Claudication in peripheral vascular disease Coronary artery disease Degenerative joint disease (03/29/11) OSBORN (dyspnea on exertion) Elevated PSA History of adenomatous polyp of colon (~2010) History of tobacco use Hypertension, essential (07/05/02) Left leg paresthesias Lymphocytic colitis Myalgia Myalgia due to statin Nocturia associated with benign prostatic hyperplasia Peripheral vascular disease Peyronie's disease (11/17/03) PMR (polymyalgia rheumatica) Presence of stent in right coronary artery Right buttock pain Status post CVA Urinary urgency Wheezing Surgical History Status post angioplasty with stent Status post hernia repair Family History Father Colon cancer Social History household members: spouse Smoking Status: Former smoker alcohol intake: current substance use type: does not use Assessment & Plan Assessment & Plan narrative: # acute new-onset atrial fibrillation -seen on patient's Apple watch at home showing A-fib with rate of 144-154, once in ED patient in sinus rhythm on EKG -HR currently 50's and sinus -he takes 1/4 a pill of metoprolol 25 XL daily, will increase to 25mg daily, hold if HR persistently in 40's -continue heparin drip -will need to consider DOAC on discharge -continue telemetry # new-onset HFrEF -echo on 06/17 with EF 45-50% reduced from prior -continue beta sary and lisinopril -will need outpatient f/u with his cancer program consultant -currently euvolemic # elevated troponin likely secondary to demand ischemia from AFib RVR -trop 0.128 on arrival to ED, patient denies any chest pain -likely troponin leak due to A-fib -peaked at 0.143 and came down to 0.133 -continue heparin drip x48 hours and trend troponin -cardiology at [facility] contacted who recommended stress test so nuclear medicine stress test ordered for Tuesday 06/19 -continue Plavix, hold aspirin as patient said this was stopped by his cancer program consultant # right middle lobe irregular nodules measuring 0.7cm -seen on CTA, neoplasm cannot be excluded and patient with smoking history -will need outpatient repeat CT follow-up in 6 months # PVD with claudication -continue home Plavix # hypertension -continue home lisinopril and amlodipine # untreated sleep apnea -patient unable to tolerate CPAP which is likely contributing to his AFib # polymyalgia rheumatica -continue home prednisone 17mg daily # depression -continue home Paxil Code status is full code. COVID negative. DVT prophylaxis with heparin drip. Proxy is Clari. I have reviewed home meds and used all available resources to reconcile the home meds. Time Spent With Patient Critical Care time: I spent a total of [] minutes of critical care time on this patient's care today; this time is exclusive of procedural time. Quality VTE Deep Vein Thrombosis/Pulmonary Embolism Present on Admission: No
[2022-06-18] MEDS: HEPARIN DRIP 25,000 UNIT/500 ML IV.SOLN 14 UNIT IV (08:21)
[2022-06-18] MEDS: GABAPENTIN 300 MG CAPSULE PO ×3 (08:57→21:04)
[2022-06-18] MEDS: METOPROLOL ER 25 MG TABLET PO (08:57)
[2022-06-18] MEDS: AMLODIPINE 5 MG TABLET PO (08:58)
[2022-06-18] MEDS: CLOPIDOGREL 75 MG TABLET PO (08:59)
[2022-06-18] MEDS: PARoxetine 20 MG TABLET PO (08:59)
--- NOTE | 2022-06-18 13:58 | CM.DANOTE ---
Initial DCP Assessment Note Pt is a 76 yo male, resident of [place], arrives complaining of feeling light headed, bp high, fatigue, admitted inpatient and placed on heparin drip Patient ambulating independently in room PCP: Toni Bender Payer: [facility] Reviewed chart, pt discussed in multidisciplinary rounds this morning. Patient scheduled for stress test Sunday, possibly discharge home after Met w/patient to introduce self and role. 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 patient confident about spouse's ability to assist as needed once home. No barriers identified at this time to patient's safe discharge home w/family to assist; close outpatient f/u recommended. CHUCKY Whitfield Discharge Planning/Care Management CM Discharge Assessment Start: 06/18/22 13:56 Freq: Status: Active Protocol: Document 06/18/22 13:56 ALLY (Rec: 06/18/22 13:58 ALLY [id number]) Discharge Planning Assessment Assigned Sustainable Design Consultant CHUCKY Callejas DPOA/Assigned Designee Name Clari Estevez, spouse Contact Information [phone] Advance Directives? Yes Advance Directives on File Yes History Provided By Patient,Family Member,Medical Record Prior Living Arrangements House Household Members spouse Type of transporation used prior to Drives own vehicle admit Independent with ADL's Yes Is patient alert and oriented? Yes Barriers to Discharge No Discharge Plan Home
[2022-06-18] MEDS: predniSONE 5 MG TABLET 15 MG PO (17:25)
[2022-06-18] MEDS: predniSONE 1 MG TABLET 2 MG PO (17:26)
[2022-06-18] MEDS: lisinopriL 5 MG TABLET PO (21:04)
[2022-06-18] MEDS: ATORVASTATIN 20 MG TABLET 40 MG PO (21:04)
[2022-06-18] MEDS: Alfuzosin 10 mg tablet extended release 24 hr 10 EACH PO (21:05)
[2022-06-18] MEDS: NETARSUDIL 0.02% 1 EACH EYE-BOTH (21:06)
[2022-06-19] VITALS: BP 132/65; PULSE 54; RESP 18; TEMP 36.6; O2SAT 95
[2022-06-19 04:00] VITALS: BP 121/58; PULSE 60; RESP 17; TEMP 36.7; O2SAT 97
[2022-06-19 06:00] VITALS: RESP 17
[2022-06-19 06:33] LABS: PTT Partial Thromboplastin Tim 48 SECONDS (26-36)
[2022-06-19] MEDS: GABAPENTIN 300 MG CAPSULE PO (10:24)
[2022-06-19] MEDS: predniSONE 5 MG TABLET 15 MG PO (10:24)
[2022-06-19] MEDS: CLOPIDOGREL 75 MG TABLET PO (10:25)
[2022-06-19] MEDS: AMLODIPINE 5 MG TABLET PO (10:25)
[2022-06-19] MEDS: METOPROLOL ER 25 MG TABLET PO (10:25)
[2022-06-19] MEDS: PARoxetine 20 MG TABLET PO (10:28)
[2022-06-19 10:30] VITALS: BP 119/67; RESP 18; TEMP 35.9
[2022-06-19] MEDS: predniSONE 1 MG TABLET 2 MG PO (10:33)
--- NOTE | 2022-06-19 13:47 | PM.DS.1 ---
History of Present Illness History of Present Illness Date Patient Seen: 06/19/22 Chief complaint: lighthead/bp high/thinks afib hx stroke Narrative: Per Dr. Valle, Korin Estevez is a 76yo M with PMH of CAD s/p SARAH to RCA in 2014 on plavix, carotid stenosis, CVA, PVD with claudication, HTN, HLD, former tobacco dependence, BPH, PMR, and DAWIT who presents with lightheadedness and fatigue. Patient notes he suddenly felt lightheaded the past few days. Then earlier today he noticed it again so put on his 's apple watch which said he was in A-fib wiht HR 140-150's. Therefore he came to the ED. No chest pain. Once in the ED he was in SR with HR 50's. Troponin was 0.128 and increased to 0.143. Dr. Montenegro cardiology at [facility] contacted who said likely troponin elevated from demand ischemia due to A-fib RVR and to put on heparin drip and admit for stress test. Patient says he is followed by his premium service representative Dr. Costa at [facility] and has no history of A-fib. He has DAWIT but cannot tolerate CPAP due to having to go to the bathroom at night 5-6x nightly. He drinks 2-3 alcohol beverages per day and this past week sunday he drank a large amount of red wine with a friend. He quit smoking in 2003. He denies NV, abd pain, jaw pain, dysuria or diarrhea. Discharge Providers Provider Date of admission: 06/17/22 09:32 Discharge Date: 06/19/22 Primary care physician: Toni Bender DO Discharge provider: Andres Wild DO Summary Hospital Course Discharge Diagnosis: # acute new-onset atrial fibrillation, likely paroxysmal # new-onset HFrEF # NSTEMI # right middle lobe irregular nodules measuring 0.7cm # PVD with claudication # hypertension # untreated sleep apnea # polymyalgia rheumatica # depression Hospital Course: This is a 76 year old male admitted with new diagnosis of possible afib with RVR. He was also noted to have an elevated troponin which quickly downtrended but he was managed with a heparin infusion per cardiology recommendations for possible NSTEMI. He was started on beta sary therapy. Afib was not confirmed during his admission but noted on a tracing with his 's apple watch. Echo showed a mildly reduced EF at 45%. Patient was held for stress testing per cardiology recommendations rather than for C given possible NSTEMI, which was low risk for ischemia. Discussed recommendation for anticoagulation, but patient elected for follow up converstation with his premium service representative as an outpatient. He was also recommended for sleep apnea evaluation as an outpatient. Time Spent with Patient Time spent: Greater than 30 minutes Exam Vital Signs (past 8 hours): - 06/19/22 06:00 06/19/22 10:30 Temperature 96.6 F L Respiratory Rate 17 18 Blood Pressure 119/67 Oxygen Delivery Method Room Air Oxygen Flow Rate 0 Narrative Exam Narrative: GEN: no acute distress HEENT: moist mucous membranes, PERRL NECK: trachea midline, no JVD CV: Bradycardic rate and normal rhythm, no murmurs PULM: clear bilaterally ABD: soft, nontender, nondistended, no organomegaly EXT: warm and well perfused with 1+ edema of left lower extremity NEURO: awake, alert, oriented, no focal deficits Objective Labs Result Diagrams: 06/16/22 19:00 06/16/22 19:30 Labs: Laboratory Results - last 24 hr 06/19/22 06:01 APTT 48 H PFSH Medical History Anxiety disorder, unspecified (09/14/15) Arm paresthesia, left Bilateral lower extremity edema BPH w urinary obs/LUTS (07/05/02) Carotid stenosis Chronic anticoagulation Claudication in peripheral vascular disease Coronary artery disease Degenerative joint disease (03/29/11) OSBORN (dyspnea on exertion) Elevated PSA History of adenomatous polyp of colon (~2010) History of tobacco use Hypertension, essential (07/05/02) Left leg paresthesias Lymphocytic colitis Myalgia Myalgia due to statin Nocturia associated with benign prostatic hyperplasia Peripheral vascular disease Peyronie's disease (11/17/03) PMR (polymyalgia rheumatica) Presence of stent in right coronary artery Right buttock pain Status post CVA Urinary urgency Wheezing Surgical History Status post angioplasty with stent Status post hernia repair Family History Father Colon cancer Social History household members: spouse Smoking Status: Former smoker alcohol intake: current substance use type: does not use Discharge Plan Discharge Plan Patient Disposition: Home Provider Discharge Comment: You were admitted to the hospital with possible worsening of your known heart disease. You had stress testing which did not show significant differences compared to previous studies. Your watch showed evidence of afib, as we discussed please follow up with cardiology for possible initiation of eliquis or xarelto for full anticoagulation, possible holter monitor. No other medication changes are recommended at this time. Continue to work on sleep apnea management, reduce caffeine and alcohol intake which can contribute to afib. Discharge orders & Medications Prescriptions: Continued gabapentin 300 mg capsule 300 mg PO TID (DME) handicaabhay anguiano See Rx Instructions .Route .MEDSUPPLY Qty: 1 0RF Rx Instructions: As directed clopidogrel [Plavix] 75 mg tablet 75 mg PO DAILY lisinopril 5 mg tablet 5 mg PO DAILY metoprolol succinate 25 mg tablet extended release 24 hr 25 mg PO DAILY Rhopressa 0.02 % drops 1 drp EYE-RIGHT BEDTIME amlodipine tablet 5 mg PO DAILY paroxetine HCl 20 mg PO DAILY prednisone 17 mg PO DAILY alfuzosin 10 mg tablet extended release 24 hr 10 mg PO DAILY Rx Instructions: administer after the same meal each day No Action albuterol sulfate 90 mcg/actuation HFA aerosol inhaler See Rx Instructions .ROUTE .COMPLEX Qty: 20.1 3RF Dose Instruction: INHALE 2 PUFFS BY MOUTH EVERY 6 HOURS NEEDED FOR SHORTNESS OF BREATH OR WHEEZING Rx Instructions: INHALE 2 PUFFS BY MOUTH EVERY 6 HOURS NEEDED FOR SHORTNESS OF BREATH OR WHEEZING atorvastatin 40 mg tablet 40 mg PO BEDTIME furosemide 10 mg/mL solution 10 mg PO .PRN Follow up/Referrals: Toni Bender DO [Primary Care Provider] - Diet/Activity/Treatments Diet: Diet as Tolerated Activity: As tolerated Visit Report/Discharge Packet Instructions: DI for Chest Pain Discharge Data Primary Care Provider: Toni Bender Quality VTE Deep Vein Thrombosis/Pulmonary Embolism Present on Admission: No
--- NOTE | 2022-06-19 18:18 | DI.NM.S_ITS ---
DATE OF SERVICE: 06/19/2022 PROCEDURE PERFORMED: Pharmacological perfusion study. INDICATION: AFib with fast ventricular rate, congestive heart failure, known history of Cordis stent placement to the RCA in 2014, hypertension, hyperlipidemia. RADIOPHARMACEUTICAL: 26.7 millicurie technetium-99m Myoview IV was injected at stress and 9.1 millicurie technetium-99m Myoview IV was injected at rest. CARDIAC STRESS: The patient initially attempted walking on a treadmill. He walked on Mario Alberto protocol for 4 minutes and 40 seconds, however, achieved only 80 percent of target heart rate. Unable to keep up with treadmill. Hence, test was converted to pharmacological stress test. The patient received IV Lexiscan, as per protocol. He remained hemodynamically stable. The patient had dyspnea during Lexiscan. No chest pain. During exercise there was no chest pain. Baseline rhythm was sinus with mild sinus bradycardia and nonspecific repolarization changes. During stress, there was some artifact without any clear-cut ischemic changes. No significant sustained arrhythmias seen. During Lexiscan, patient has rare PVCs. Baseline blood pressure 102/80. Peak blood pressure 172/85 mmHg ,achieved 7 METs of workload. AMANDEEP positive 16 percent. RAW DATA: There is increased subdiaphragmatic activity. GATED STUDY: No resting study. Stress left ventricular ejection fraction 68 percent, which does not appear to be right. There appears to be inferolateral and inferior wall hypokinesis. TID ratio 0.98, which is within normal limits. Lung/heart ratio 0.20, which is within normal limits. MYOCARDIAL PERFUSION SCAN: Stress supine, resting supine and stress prone images were compared to each other. It appears to be that patient has predominantly fixed, large size, severely decreased perfusion of inferior wall extending into the inferoapex, inferoseptum and inferolateral wall without any significant reversibility. CONCLUSION: This is an abnormal myocardial perfusion study, consistent with large size infarction of inferior wall extending into the inferoapex and inferolateral wall without any obvious reversible ischemia. Diminished exercise tolerance. On gated study, stress left ventricular ejection fraction 68 percent, which does not appear to be true. Get a 2D echo to assess left ventricular function. No transient ischemic dilatation. No significant arrhythmias. Discussed the findings with our hospitalist, Dr. Wild. Consider getting old stress test report to assess whether right coronary artery infarction is new or old. Correlate clinically. If needed, consider left heart catheterization. OnofreJames merrittkin - HAKAN/cat/marilin doc#: [id number]/job#: [id number] dd: 06/19/2022 12:53:00 dt: 06/19/2022 17:45:00 DICTATING MD/COPIES TO: Brittany Carney MD COPIES MNE: FERMIN;
== END 2022-06-19 14:03 | disposition home or self-care (01) | DRG 308 ==
LOC: ED 06-17 07:53 → ICU 06-17 09:33
PROVIDERS: Emergency Medicine; Admitting Provider Student in an Organized Health Care Education/Training Program; Emergency Provider Emergency Medicine; PCP Family Medicine; Referring Provider Emergency Medicine; Visit Provider Student in an Organized Health Care Education/Training Program
DX: I48.91 Unspecified atrial fibrillation (principal); I50.21 Acute systolic (congestive) heart failure; I24.8 Other forms of acute ischemic heart disease; I11.0 Hypertensive heart disease with heart failure; I73.89 Other specified peripheral vascular diseases; R91.8 Other nonspecific abnormal finding of lung field; F32.A Depression, unspecified; G47.30 Sleep apnea, unspecified; M35.3 Polymyalgia rheumatica; I25.10 Atherosclerotic heart disease of native coronary artery without angina pectoris; E78.5 Hyperlipidemia, unspecified; Z95.5 Presence of coronary angioplasty implant and graft; Z20.822 Contact with and (suspected) exposure to COVID-19; Z87.891 Personal history of nicotine dependence
CPT/HCPCS: 36415; 71045; 71275; 78452; 80053; 80061; 81003; 81015; 82550; 83036; 83690; 83735; 83880; 84443; 84484; 85025; 85730; 87635; 87797; 93005; 93017; 93306; 94640; 96365; 96366; 96375; 96376; 99285; 99291; C9803; A9502; J1644; J1940; J2785; Q9967

== ENCOUNTER → 2022-07-06 09:23 | Outpatient (CLI) | payer MEDICARE, BC, SELFPAY ==
[2022-06-17 09:36] VITALS: BMI 28.7
[2022-07-06 11:28] LABS: Prostate Specific Antigen 3.91 ng/mL (0.10-4.00)
== END ==
PROVIDERS: PCP Family Medicine; Referring Provider Urology; Visit Provider Urology
DX: R97.20 Elevated prostate specific antigen [PSA] (principal)
CPT/HCPCS: 36415; 84153

== ENCOUNTER → 2023-01-12 09:14 | Outpatient (CLI) | payer MEDICARE, BC, SELFPAY ==
[2022-12-20 09:40] VITALS: BMI 28.7
--- NOTE | 2023-01-12 09:17 | DI.RAD.S_ITS ---
PROCEDURE: XR LUMBAR SPINE MIN 4V INDICATIONS: low back pain TECHNIQUE: 5 views of the lumbar spine were acquired, including bilateral oblique views. COMPARISON: None. FINDINGS: Bones: 5 nonrib-bearing vertebrae are present. There is normal bony alignment. No vertebral body compression fractures. No suspicious bony lesions. Lower lumbar facet arthropathy. Soft tissues: Overlying bowel gas pattern is normal. No suspicious soft tissue calcifications. Oblique images: No pars defects. IMPRESSION: Lower lumbar facet arthropathy. Dictated by: Akash Lozada M.D. on 01/12/2023 at 13:42 Approved by: Akash Lozada M.D. on 01/12/2023 at 13:44
[2023-01-12 10:35] LABS: Prostate Specific Antigen 4.35 ng/mL (0.10-4.00)
== END ==
PROVIDERS: Urology; PCP Family Medicine; Referring Provider Anesthesiology; Visit Provider Anesthesiology
DX: R97.20 Elevated prostate specific antigen [PSA] (principal); M54.50 Low back pain, unspecified; M47.816 Spondylosis without myelopathy or radiculopathy, lumbar region
CPT/HCPCS: 36415; 72110; 84153

== ENCOUNTER → 2023-01-19 08:34 | Outpatient (CLI) | payer MEDICARE, BC, SELFPAY ==
[2022-12-20 09:40] VITALS: BMI 28.7
--- NOTE | 2023-01-19 08:38 | DI.MRI.S_ITS ---
PROCEDURE: MR LUMBAR SPINE WO CON INDICATIONS: Ataxia, hyporeflexia, chronic low back pain TECHNIQUE: Noncontrast sagittal T1 spin echo and T2 fast echo, sagittal STIR, and T2 fast spin echo through the lumbar spine. In cases with scoliosis, additional coronal T2 fast spin echo may be performed. COMPARISON: [facility], CT, CT ANGIO ABD AORTA RUNOFF, 05/12/2019, 13:04. [facility], MR, L-SPINE WITHOUT CONTRAST, 03/29/2016, 8:01. [facility], MR, L-SPINE WITHOUT CONTRAST, 04/08/2015, 8:04. [facility], MR, MR LUMBAR SPINE WO CON, 02/20/2018, 7:43. [facility], CR, XR LUMBAR SPINE MIN 4V, 01/12/2023, 9:13. [facility], MR, L-SPINE WITHOUT CONTRAST, 12/16/2010, 15:24. FINDINGS: Image quality: Excellent. Alignment and Curvature: There is normal bony alignment. Bone Marrow: Marrow is of normal overall signal. No acute vertebral body compression fractures. Spinal Cord: Conus medullaris terminates at the L1 level. Visualized cord demonstrates normal signal and size. Paraspinous Soft Tissues: No paravertebral masses. Mild abdominal aortic aneurysm is seen, measuring 3.3 cm transversely. T12-L1: No significant abnormality is seen. L1-L2: Level within normal limits. L2-L3: The disc height is well-preserved. Loss of disc signal is seen at this level. Moderate disc bulge is seen, which is eccentric to the left. Bridging endplate osteophytes are seen on the left side. Mild to moderate facet hypertrophy is seen. There is at least moderate right-sided and [id number] left-sided neural foraminal narrowing. Moderate central canal narrowing is seen. These imaging findings have progressed compared to the prior study. L3-L4: The disc height is well-preserved. Loss of disc signal is seen at this level. Moderate generalized disc bulge is seen. Moderate facet joint hypertrophy is seen. Mild bilateral neural foraminal narrowing can be seen, left worse than right. Moderate central canal narrowing is seen, which is exacerbated by prominent posterior epidural fat. These imaging findings have progressed compared to the prior study. L4-L5: The disc height is well-preserved. Loss of disc signal is seen at this level. Reactive marrow endplate changes are seen, which are hyperintense on T1-weighted and T2-weighted imaging and most consistent with fatty metaplasia (Modic type II changes). There is a remote Schmorl's node seen at the superior endplate of L5. Moderate generalized disc bulge is seen. Mild to moderate facet hypertrophy is seen. There is moderate right-sided and at least moderate left-sided neural foraminal narrowing. There is a mild degree of compression seen upon the exiting left L4 nerve root. Mild central canal narrowing is seen. These degenerative changes are mildly progressed compared to 2018. L5-S1: The disc height is well-preserved. Loss of disc signal is seen at this level. Mild to moderate disc bulge is seen, which is eccentric to the left. Moderate facet joint hypertrophy is seen. There is at least moderate left-sided neural foraminal narrowing, with a mild degree of compression upon the exiting left L5 nerve root. Mild right-sided neural foraminal narrowing is seen. Minimal central canal narrowing is seen. No significant change from the prior. IMPRESSION: Multiple levels of lumbar spine degenerative change are seen, which are progressed at several levels compared to 2018. Additional findings: Mild abdominal aortic aneurysm, 3.3 cm transversely Dictated by: Gregg Eddy M.D. on 01/19/2023 at 10:20 Approved by: Gregg Eddy M.D. on 01/19/2023 at 10:25
== END ==
PROVIDERS: PCP Family Medicine; Referring Provider Anesthesiology; Visit Provider Anesthesiology
DX: M47.27 Other spondylosis with radiculopathy, lumbosacral region (principal); M47.26 Other spondylosis with radiculopathy, lumbar region; R29.2 Abnormal reflex; R27.0 Ataxia, unspecified; M54.50 Low back pain, unspecified
CPT/HCPCS: 72148

== ENCOUNTER 2023-01-31 08:46 | Outpatient (CLI) | payer MEDICARE, BC, SELFPAY ==
[2022-12-20 09:40] VITALS: BMI 28.7
--- NOTE | 2023-01-31 08:47 | DI.RAD.S_ITS ---
PROCEDURE: PAIN L/S TRANSFORAMINAL INJECT INDICATIONS: SPONDYLOSIS COMPARISON: None. FINDINGS: Fluoroscopic spot filming was performed to verify placement of spinal needles at the right L4-5 and L5-S1 level(s), as labeled on the films. Appropriate location(s) of the needle tip(s) was confirmed by injection of iodinated contrast. IMPRESSION: Fluoroscopy used for localization of right L4-5 and L5-S1 levels for steroid injection. Dictated by: Nguyen Mota M.D. on 01/31/2023 at 12:27 Approved by: Nguyen Mota M.D. on 01/31/2023 at 12:28
[2023-01-31 09:00] VITALS: BP 126/73; PULSE 53; RESP 18; TEMP 36.2; O2SAT 98
[2023-01-31 09:38] VITALS: PULSE 60; RESP 15; O2SAT 96
[2023-01-31] MEDS: IOPAMIDOL 15 ML VIAL 3 ML INJ (09:42)
[2023-01-31] MEDS: DEXAMETHASONE 10 MG/ML VIAL 20 MG INJ (09:42)
[2023-01-31 09:43] VITALS: BP 157/73; PULSE 54; RESP 12; O2SAT 98
[2023-01-31 09:48] VITALS: BP 141/68; PULSE 55; RESP 13; O2SAT 97
[2023-01-31 09:52] VITALS: BP 126/70; PULSE 58; RESP 18; O2SAT 97
--- NOTE | 2023-01-31 13:13 | P.PCN_ITS ---
Date/Time/Diagnoses Date of procedure: 01/31/23 Time of procedure: 09:30 Procedure Notes Physician: Deshawn Moon Total Fluoroscopy time (seconds): 25 Total sedation minutes: 0 Procedure in detail & Post-procedure care: Right L4-5 and L5-S1 Transforaminal Epidural Steroid Injection Indications: Korin is presenting for treatment of lumbar radiculopathy with low back and leg pain. Preoperative diagnosis: Right lumbar radiculopathy Postoperative diagnosis: Same Focused Examination: Ax3 Mood and affect are normal Vital Signs: VSS Consent: Following review of allergies and potential side effects/complications, including, but not necessarily limited to, infection, allergic reaction, local tissue breakdown, stroke, temporary or permanent nerve injury, paralysis, and possible , the patient indicated that they understood and agreed to proceed.? An informed consent document was signed by the patient, witnessed by a nurse and placed in the patient's chart.? Additionally, other treatment options including medications and physical therapy were reviewed with the patient. All questions were answered. Site was then marked. Anesthesia: Local Position: Prone Monitoring: NIBP, Pulse oximetry, 3 lead EKG Needle used: 22G 3.5 inch spinal needle Contrast: Isovue 300M Injectate: 10 mg Dexamethasone mixed with 1% lidocaine 1 ml and Normal Saline 1 ml per site Technique: The skin was prepped with chloraprep and draped in a sterile fashion. Time out was performed as per protocol. Oxygen applied via NC. Skin and subcutaneous structures of the needle entry site were infiltrated with 3mL of lidocaine 1%. Under fluoroscopic guidance, using an ipsilateral oblique view,?a 22 gauge 3.5 inch needle was advanced to the base of the L4?pedicle.? The needle was advanced to the superio-posterior aspect of the neural foramen under lateral view.? Oblique and AP views were rechecked. No paresthesias noted by the patient during needle placement. In AP view and utilizing real-time digital subtraction fluoroscopy, 2 ml contrast was slowly injected. Epidural spread was observed without evidence for intravascular nor intrathecal uptake. Contrast spread was seen craniocaudally. The above injectate was then administered, and the needle was subsequently withdrawn. Band-Aids applied to injection sites. Skin and subcutaneous structures of the needle entry site were infiltrated with 3mL of lidocaine 1%. Under fluoroscopic guidance, using an ipsilateral oblique view,?a 22 gauge 3.5 inch needle was advanced to the base of the L5?pedicle.? The needle was advanced to the superio-posterior aspect of the neural foramen under lateral view.? Oblique and AP views were rechecked. No paresthesias noted by the patient during needle placement. In AP view and utilizing real-time digital subtraction fluoroscopy, 2 ml contrast was slowly injected. Epidural spread was observed without evidence for intravascular nor intrathecal uptake. Contrast spread was seen craniocaudally. The above injectate was then administered, and the needle was subsequently withdrawn. Band-Aids applied to injection sites. EBL: less than 1 ml Complications: None Post Procedure: Patient was taken to the recovery and monitored. The patient was provided a Pain Log to continue to record the patient's response to the target- specific procedure prior to the patient's follow-up visit with the referring physician. Patient was stable upon discharge. Detailed post procedure instructions were provided. Patient was asked to call in the event of worsening pain, fever, weakness, numbness or bladder or bowel incontinence.
== END 2023-01-31 09:57 | disposition home or self-care (01) ==
LOC: RAD 08:47
PROVIDERS: PCP Family Medicine; Referring Provider Anesthesiology; Visit Provider Anesthesiology
DX: M54.16 Radiculopathy, lumbar region (principal)
CPT/HCPCS: 64483; 64484; J1100

== ENCOUNTER → 2023-03-12 07:11 | Outpatient (CLI) | payer MEDICARE, BC, SELFPAY ==
[2022-12-20 09:40] VITALS: BMI 28.7
[2023-03-12 08:09] LABS: Hematocrit 41.3 % (41-53); Hemoglobin 14.4 g/dL (13.5-17.5); Mean Corpuscular HGB Conc 34.8 % (30-36); Mean Corpuscular Hemoglobin 31.8 PG (26-34); Mean Corpuscular Volume 91.3 fL (80-100); Platelet Count 158 X10^3/uL (150-400); Red Blood Cell Count 4.52 X10^6/uL (4.5-5.9); Red Cell Distribution Width 13.6 % (11.6-14.8); White Blood Cell Count 5.3 X10^3/uL (4.5-11.0)
[2023-03-12 08:33] LABS: Alanine Aminotransferase 26 IU/L (<50); Albumin 3.6 g/dL (3.5-5.0); Albumin Globulin Ratio 1.4 (1.0-2.8); Alkaline Phosphatase 25 U/L (38-126); Aspartate Aminotransferase 24 IU/L (17-59); BUN Creatinine Ratio 9.3 (6-22); Bilirubin Total 0.5 mg/dL (0.2-1.3); Blood Urea Nitrogen 11 mg/dL (9-20); Calcium 8.7 mg/dL (8.4-10.2); Carbon Dioxide 34 mmol/L (22-32); Chloride 97 mmol/L (98-107); Cholesterol 158 mg/dL (140-199); Estimated Glomerular Filt Rate > 60 mL/min (>60); Globulin 2.6 g/dL (1.7-4.1); Glucose 98 mg/dL (80-110); HDL Cholesterol 74 mg/dL (40-60); HEMOLYSIS < 15 (0-50); LDL Cholesterol Calculated 72 mg/dL (<100); Potassium 4.6 mmol/L (3.4-5.1); Sodium 134 mmol/L (137-145); Total Protein 6.2 g/dL (6.3-8.2); Triglycerides 59 mg/dL (35-150)
[2023-03-12 09:53] LABS: Creatinine Urine Random 176.3 mg/dL
[2023-03-12 09:58] LABS: Microalbumin Urine Random 1.6 mg/dL (0-1.6)
== END ==
PROVIDERS: PCP Family Medicine; Referring Provider Nurse Practitioner Family; Visit Provider Nurse Practitioner Family
DX: I10 Essential (primary) hypertension (principal); I25.10 Atherosclerotic heart disease of native coronary artery without angina pectoris; E78.2 Mixed hyperlipidemia; I50.9 Heart failure, unspecified; M35.3 Polymyalgia rheumatica; N13.8 Other obstructive and reflux uropathy; Z86.73 Personal history of transient ischemic attack (TIA), and cerebral infarction without residual deficits; N40.1 Benign prostatic hyperplasia with lower urinary tract symptoms
CPT/HCPCS: 36415; 80053; 80061; 82043; 82570; 85027

== ENCOUNTER → 2023-04-08 10:00 | Outpatient (CLI) | payer MEDICARE, BC, SELFPAY ==
[2022-12-20 09:40] VITALS: BMI 28.7
== END ==
PROVIDERS: PCP Family Medicine; Visit Provider Nurse Practitioner Family
DX: L24.A9 Irritant contact dermatitis due friction or contact with other specified body fluids (principal)
CPT/HCPCS: 87070; 87075; 87077; 87186; 87205

== ENCOUNTER → 2023-04-10 09:40 | Outpatient (CLI) | payer MEDICARE, BC, SELFPAY ==
[2022-12-20 09:40] VITALS: BMI 28.7
[2023-04-10 14:15] LABS: Clostridium Difficile Tox PCR Negative for C. diff (Negative)
== END ==
PROVIDERS: PCP Family Medicine; Referring Provider Family Medicine; Visit Provider Family Medicine
DX: R19.7 Diarrhea, unspecified (principal)
CPT/HCPCS: 87045; 87177; 87493; 87899

== ENCOUNTER → 2023-04-27 12:55 | Outpatient (CLI) | payer MEDICARE, BC, SELFPAY ==
[2022-12-20 09:40] VITALS: BMI 28.7
[2023-04-27 13:24] LABS: Erythrocyte Sedimentation Rate 18 MM/HR (0-15)
[2023-04-27 13:26] LABS: C-Reactive Protein Quant 0.5 mg/dL (<1.0)
== END ==
PROVIDERS: PCP Family Medicine; Referring Provider Family Medicine; Visit Provider Family Medicine
DX: M19.90 Unspecified osteoarthritis, unspecified site (principal)
CPT/HCPCS: 36415; 85651; 86140

== ENCOUNTER 2023-05-23 09:03 | Outpatient (CLI) | payer MEDICARE, BC, SELFPAY ==
[2022-12-20 09:40] VITALS: BMI 28.7
--- NOTE | 2023-05-23 09:04 | DI.RAD.S_ITS ---
PROCEDURE: PAIN L INTERLAMINAR/CAUDAL INJ INDICATIONS: RADICULOPATHY COMPARISON: None. FINDINGS: Fluoroscopic spot filming was performed to verify placement of spinal needles at the L4-5 level(s), as labeled on the films. Appropriate location(s) of the needle tip(s) was confirmed by injection of iodinated contrast. IMPRESSION: Fluoro guidance was provided intraoperatively for L4-5 intra alignment epidural steroid injection performed by ordering physician. Dictated by: Foreign Aguilera M.D. on 05/23/2023 at 10:28 Approved by: Foreign Aguilera M.D. on 05/23/2023 at 10:32
[2023-05-23 09:15] VITALS: BP 126/58; PULSE 52; RESP 20; TEMP 36.1; O2SAT 99
[2023-05-23 09:41] VITALS: BP 147/66; PULSE 57; RESP 21; O2SAT 97
[2023-05-23] MEDS: DEXAMETHASONE 10 MG/ML VIAL INJ (09:43)
[2023-05-23] MEDS: IOPAMIDOL 15 ML VIAL 3 ML INJ (09:44)
[2023-05-23 09:46] VITALS: BP 143/68; PULSE 49; RESP 16; O2SAT 98
[2023-05-23 09:48] VITALS: BP 138/62; PULSE 49; RESP 13; O2SAT 99
[2023-05-23 09:55] VITALS: BP 131/60; PULSE 52; RESP 20; O2SAT 97
--- NOTE | 2023-05-23 12:29 | P.PCN_ITS ---
Date/Time/Diagnoses Date of procedure: 05/23/23 Time of procedure: 09:30 Procedure Notes Physician: Deshawn Moon Total Fluoroscopy time (seconds): 13 Total sedation minutes: 0 Procedure in detail & Post-procedure care: L4-5 Interlaminar Epidural Steroid Injection Indications: Korin is presenting for treatment of lumbar radiculopathy with low back and leg pain. Preoperative diagnosis: Lumbar radiculopathy Postoperative diagnosis: Same Focused Examination: Ax3 Mood and affect are normal Vital Signs: VSS Consent: Following review of allergies and potential side effects/complications, including, but not necessarily limited to, infection, allergic reaction, local tissue breakdown, stroke, temporary or permanent nerve injury, paralysis, and possible , the patient indicated that they understood and agreed to proceed.? An informed consent document was signed by the patient, witnessed by a nurse and placed in the patient's chart.? Additionally, other treatment options including medications and physical therapy were reviewed with the patient. All questions were answered. Site was then marked. Anesthesia: Local Position: Prone Monitoring: NIBP, Pulse oximetry, 3 lead EKG Needle used: 18 G 3.5? Tuohy Contrast: Isovue 300M Injectate: Dexamethasone 10 mg with 1% lidocaine 2 mL Technique: The skin was prepped with chloraprep and then draped in a sterile fashion. Time out was performed as per protocol. Oxygen applied via NC. Skin and subcutaneous structures of the needle entry site was then infiltrated with 3 mL of lidocaine 1%. Under AP, lateral and contralateral oblique fluoroscopic control, the Tuohy needle was guided into the L4-5 epidural space. The space was accessed with loss of resistance technique. Isovue 300M was then injected and the spread was consistent with the epidural space. There was no evidence for intravascular or intrathecal uptake. After negative aspiration, the above- mentioned injectate was then slowly administered and the needle withdrawn. The patient expressed no unusual discomfort or paresthesias during the injection. Band-Aids applied to injection sites. EBL: less than 1 ml Complications: None Post Procedure: Patient was taken to the recovery and monitored. The patient was provided a Pain Log to continue to record the patient's response to the target- specific procedure prior to the patient's follow-up visit with the referring physician. Patient was stable upon discharge. Detailed post procedure instructions were provided. Patient was asked to call in the event of worsening pain, fever, weakness, numbness or bladder or bowel incontinence.
== END 2023-05-23 09:58 | disposition home or self-care (01) ==
LOC: RAD 09:04
PROVIDERS: PCP Family Medicine; Referring Provider Anesthesiology; Visit Provider Anesthesiology
DX: M54.16 Radiculopathy, lumbar region (principal)
CPT/HCPCS: 62323; J1100; J2250

== ENCOUNTER → 2024-02-05 11:00 | Outpatient (CLI) | payer MEDICARE, BC, SELFPAY ==
[2022-12-20 09:40] VITALS: BMI 28.7
== END ==
LOC: LAB 11:00
PROVIDERS: PCP Family Medicine; Referring Provider Urology; Visit Provider Urology
DX: R97.20 Elevated prostate specific antigen [PSA] (principal); N40.1 Benign prostatic hyperplasia with lower urinary tract symptoms; N13.8 Other obstructive and reflux uropathy
CPT/HCPCS: 36415; 84153; 84154

== ENCOUNTER → 2024-03-13 09:05 | Outpatient (CLI) | payer MEDICARE, BC, SELFPAY ==
[2022-12-20 09:40] VITALS: BMI 28.7
--- NOTE | 2024-03-13 09:07 | DI.MRI.S_ITS ---
PROCEDURE: MR PELVIC PROSTATE PROTOCOL INDICATIONS: Elevated PSA history of PI-RADS 4 lesion TECHNIQUE: Coronal HASTE, axial T1 FSE with fat saturation, 3-plane nonbreath-hold T2 FSE. After the administration of contrast, dynamic axial, delayed axial and coronal VIBE or 2-D FLASH with fat saturation through the pelvis. Diffusion weighted imaging and ADC was performed. COMPARISON: Outside Facility, RG, MRI PROSTATE W / WO CONTRAST, 10/22/2023, 7:32. FINDINGS: Image quality: Diffusion weighted and dynamic contrast enhanced images are diagnostic. Prostate: Gland size is 4.6 x 4.1 x 4.8 cm; ellipsoid gland volume is 47 mL. Given PSA of 2.3, PSA density is 0.05. Lesion 1: Location: Right paracentral transition zone at the mid gland level, on axial series four, image 14 and coronal series five, image 15. Size: Roughly 1.3 cm. T2W signal: Indistinct, mildly hypointense DWI signal: Mildly hyperintense ADC signal: Mildly hypointense Enhancement: No Extracapsular extension: No PI-RADS score: Three This is adjacent to a moderately T2 hypointense nodule more medial in the transition zone, less distinct compared to the prior exam. The transition zone and peripheral zone of the gland is otherwise fairly heterogeneous. There are several bandlike of hypointensity in the peripheral zone suggesting scarring or fibrosis. Genitourinary system: Bladder wall thickness is normal. Distal ureters are non distended. Bowel and peritoneum: No pathologic free pelvic fluid. Inferior colon and small bowel loops are normal in caliber. Nodes and vessels: No pelvic or inguinal adenopathy by size criteria. Iliac vessels are normal in caliber. Soft tissues: There are bilateral fat containing femoral hernias and small fat containing left inguinal hernia. Bones: Marrow demonstrates normal overall signal, without lesions to suggest metastases. IMPRESSION: Normal size, but heterogeneous prostate gland with a somewhat equivocal area centered in the right transition zone (PI-RADS three) which is slightly less distinct compared to the previous exam. No pelvic lymphadenopathy by size criteria. No aggressive osseous abnormality. Dictated by: Nguyen Mota M.D. on 03/13/2024 at 15:03 Approved by: Nguyen Mota M.D. on 03/13/2024 at 15:35
== END ==
PROVIDERS: PCP Family Medicine; Referring Provider Urology; Visit Provider Urology
DX: K41.20 Bilateral femoral hernia, without obstruction or gangrene, not specified as recurrent (principal); K40.90 Unilateral inguinal hernia, without obstruction or gangrene, not specified as recurrent; R93.89 Abnormal findings on diagnostic imaging of other specified body structures; R97.20 Elevated prostate specific antigen [PSA]
CPT/HCPCS: 72197; A9579

== ENCOUNTER → 2024-06-11 07:15 | Outpatient (CLI) | payer MEDICARE, BC, SELFPAY ==
[2022-12-20 09:40] VITALS: BMI 28.7
[2024-06-11 08:42] LABS: Cholesterol 141 mg/dL (140-199); HDL Cholesterol 54 mg/dL (40-60); LDL Cholesterol Calculated 69 mg/dL (<100); Triglycerides 91 mg/dL (35-150)
[2024-06-11 09:17] LABS: Creatinine Urine Random 155.54 mg/dL
[2024-06-11 09:25] LABS: Microalbumin Urine Random 0.9 mg/dL (0-1.6)
[2024-06-12 07:37] LABS: PSA Free % 22.2 % (.); PSA, Total 3.6 ng/mL (0.0-4.0)
== END ==
PROVIDERS: PCP Family Medicine; Referring Provider Urology; Visit Provider Family Medicine
DX: I10 Essential (primary) hypertension (principal); R97.20 Elevated prostate specific antigen [PSA]; N40.1 Benign prostatic hyperplasia with lower urinary tract symptoms; N13.8 Other obstructive and reflux uropathy
CPT/HCPCS: 36415; 80061; 82043; 82570; 84153; 84154

== ENCOUNTER → 2025-01-08 08:43 | Outpatient (CLI) | payer MEDICARE, BC, SELFPAY ==
[2022-12-20 09:40] VITALS: BMI 28.7
[2025-01-09 09:12] LABS: PSA, Total 4.1 ng/mL (0.0-4.0)
== END ==
PROVIDERS: PCP Family Medicine; Referring Provider Urology; Visit Provider Urology
DX: R97.20 Elevated prostate specific antigen [PSA] (principal)
CPT/HCPCS: 36415; 84153; 84154

== ENCOUNTER → 2025-01-09 08:01 | Outpatient (CLI) | payer MEDICARE, BC, SELFPAY ==
[2022-12-20 09:40] VITALS: BMI 28.7
[2025-01-09 09:17] LABS: BUN Creatinine Ratio 8.6 (6-22); Blood Urea Nitrogen 12 mg/dL (9-20); Calcium 9.2 mg/dL (8.4-10.2); Carbon Dioxide 31 mmol/L (22-32); Chloride 100 mmol/L (98-107); Cholesterol 143 mg/dL (140-199); Estimated Glomerular Filt Rate 51 mL/min (>60); Glucose 112 mg/dL (80-110); HDL Cholesterol 55 mg/dL (40-60); HEMOLYSIS < 15 (0-50); LDL Cholesterol Calculated 75 mg/dL (<100); Potassium 4.9 mmol/L (3.4-5.1); Sodium 135 mmol/L (137-145); Triglycerides 66 mg/dL (35-150)
== END ==
PROVIDERS: PCP Family Medicine; Visit Provider Nurse Practitioner Family
DX: I25.10 Atherosclerotic heart disease of native coronary artery without angina pectoris (principal); Z95.5 Presence of coronary angioplasty implant and graft; E78.2 Mixed hyperlipidemia
CPT/HCPCS: 36415; 80048; 80061

== ENCOUNTER → 2025-01-19 09:01 | Outpatient (CLI) | payer MEDICARE, BC, SELFPAY ==
[2022-12-20 09:40] VITALS: BMI 28.7
[2025-01-19 09:46] LABS: Add Manual Diff / Slide Review NO; Basophils Absolute Auto 0 /uL (0-100); Basophils Percent Auto 0.7 % (0-2); Eosinophils Absolute Auto 300 /uL (0-450); Eosinophils Percent Auto 7.8 % (2-4); Hematocrit 42.9 % (41-53); Hemoglobin 14.7 g/dL (13.5-17.5); Lymphocytes Absolute Auto 700 /uL (1100-4500); Lymphocytes Percent Auto 19.2 % (25-40); Mean Corpuscular HGB Conc 34.3 % (30-36); Mean Corpuscular Hemoglobin 31.9 PG (26-34); Mean Corpuscular Volume 92.9 fL (80-100); Monocytes Absolute Auto 500 /uL (0-900); Monocytes Percent Auto 13.3 % (3-14); Neutrophils Absolute Auto 2300 /uL (1500-7000); Platelet Count 151 X10^3/uL (150-400); Red Blood Cell Count 4.62 X10^6/uL (4.5-5.9); Red Cell Distribution Width 13.8 % (11.6-14.8); White Blood Cell Count 3.9 X10^3/uL (4.5-11.0)
[2025-01-19 10:57] LABS: Vitamin B12 698 pg/mL (239-931)
== END ==
PROVIDERS: PCP Family Medicine; Referring Provider Physician Assistant; Visit Provider Physician Assistant
DX: N40.1 Benign prostatic hyperplasia with lower urinary tract symptoms (principal); R31.21 Asymptomatic microscopic hematuria; N13.8 Other obstructive and reflux uropathy; R35.1 Nocturia; R26.89 Other abnormalities of gait and mobility; R25.1 Tremor, unspecified; R97.20 Elevated prostate specific antigen [PSA]
CPT/HCPCS: 36415; 51798; 81002; 82607; 85025; 99214

== ENCOUNTER → 2025-02-04 07:05 | Outpatient (CLI) | payer MEDICARE, BC, SELFPAY ==
[2022-12-20 09:40] VITALS: BMI 28.7
--- NOTE | 2025-02-04 07:07 | DI.MRI.S_ITS ---
PROCEDURE: MR HEAD/BRAIN WO CON INDICATIONS: parkinsonism, rule out alternative re balance, tremor TECHNIQUE: Non-contrast axial T1 spin echo, axial T2 fast spin echo, sagittal and axial FLAIR, coronal T2 fast spin echo, axial gradient echo, axial diffusion and ADC through the brain. COMPARISON: None. FINDINGS: Image quality: Excellent. CSF spaces: Ventricles appear symmetric in size and shape. Basal cisterns are patent. No extra-axial fluid collections. Brain: No intracranial bleeds or mass effects. There is mild cerebral volume loss for age. There are minimal periventricular and deep white matter chronic small vessel ischemic changes. Brainstem appears normal. Diffusion-weighted images show no acute infarct. 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 Normal intravascular flow voids are present. Skull and face: Calvarial bone marrow is normal in signal. Orbits are normal. Sinuses: Mild mucosal thickening in the bilateral maxillary sinuses, bilateral sphenoid sinuses and bilateral ethmoid air cells and left frontal sinus. The mastoids are clear. IMPRESSION: No acute intracranial disease process. No acute infarcts. 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 No abnormal intracranial mass or intracranial hemorrhage. Dictated by: Adela Adrian MD, PhD on 02/04/2025 at 11:25 Approved by: Adela Adrian MD, PhD on 02/04/2025 at 11:29
== END ==
LOC: MRI 07:06
PROVIDERS: PCP Family Medicine; Referring Provider Family Medicine; Visit Provider Family Medicine
DX: R25.1 Tremor, unspecified (principal); R26.89 Other abnormalities of gait and mobility; R29.2 Abnormal reflex; Z86.73 Personal history of transient ischemic attack (TIA), and cerebral infarction without residual deficits
CPT/HCPCS: 70551

== ENCOUNTER → 2025-06-18 09:15 | Outpatient (CLI) | payer MEDICARE, BC, SELFPAY ==
[2022-12-20 09:40] VITALS: BMI 28.7
== END ==
PROVIDERS: PCP Family Medicine; Referring Provider Family Medicine; Visit Provider Urology
DX: R97.20 Elevated prostate specific antigen [PSA] (principal)
CPT/HCPCS: 36415; 84153; 84154